=== PATIENT | female | born 1980 | race Caucasian/White ===

== ENCOUNTER 2019-11-05 09:10 | Emergency (ER) | payer MEDICARE, MEDICAID ==
[~2019-11-05] VITALS: Ht 157.5 cm; Wt 81.8 kg
[~2019-11-05 09:10] MED LIST: DIPH-423 PO
--- NOTE | 2019-11-05 09:43 | NUR ---
PT. ATTEMPTED TO URINATE AND GIVE A SAMPLE, CUP WAS EMPTY. BLOOD DRAWN, PT. IN GREENS, VALUABLES ITAMIZED BY JONAS THE TECH. PT. WALKED OVER TO ROOM 22
[2019-11-05 09:54] LABS: BASOPHILS # (AUTO) 0.1 X10'3 (0-0.2); BASOPHILS % (AUTO) 0.8 % (0-1); EOSINOPHILS # (AUTO) 0.1 X10'3 (0-0.9); HEMATOCRIT 33.8 % (35.0-45.0); HEMOGLOBIN 10.7 g/dl (12.0-16.0); LYMPHOCYTES # (AUTO) 1.5 X10'3 (1.1-4.8); LYMPHOCYTES % (AUTO) 19.4 % (21-51); MEAN CORPUSCULAR HEMOGLOBIN 24.9 PG (27.0-31.0); MEAN CORPUSCULAR HGB CONC 31.6 g/dL (33.0-36.5); MEAN CORPUSCULAR VOLUME 78.7 FL (78-98); MEAN PLATELET VOLUME 7.3 FL (7.4-10.4); MONOCYTES # (AUTO) 0.7 X10'3 (0-0.9); MONOCYTES % (AUTO) 9.5 % (2-12); NEUTROPHILS # (AUTO) 5.2 X10'3 (1.8-7.7); NEUTROPHILS % (AUTO) 69.3 % (42-75); PLATELET COUNT 339 X10'3 (140-440); RED CELL DISTRIBUTION WIDTH 17.4 % (11.5-14.5); WHITE BLOOD COUNT 7.6 X10'3 (4.5-11.0)
--- NOTE | 2019-11-05 10:02 | NUR ---
Up in bed talking to self
--- NOTE | 2019-11-05 10:06 | NUR ---
Let patient know we need a urine sample from her. She told me she tried but wasn't able to get it in the cup. I told her to let us know when she has to go so we could get her a urine hat to make collecting her urine easier.
[2019-11-05 10:13] LABS: ALANINE AMINOTRANSFERASE 120 U/L (12-78); ALBUMIN 4.1 G/DL (3.4-5.0); ALBUMIN/GLOBULIN RATIO 1.1 (1.1-1.5); ALKALINE PHOSPHATASE 185 IU/L (46-116); ANION GAP 12 (8-16); ASPARTATE AMINO TRANSFERASE 128 U/L (10-37); BILIRUBIN,TOTAL 0.4 MG/DL (0.1-1.0); BLOOD UREA NITROGEN 20 MG/DL (7-18); CALCIUM 9.4 MG/DL (8.5-10.1); CHLORIDE 104 MMOL/L (99-107); CREATININE 0.77 MG/DL (0.40-0.90); GLUCOSE 104 MG/DL (70-104); POTASSIUM 3.5 MMOL/L (3.5-5.1); SODIUM 139 MMOL/L (135-145); TOTAL CARBON DIOXIDE 23.3 MMOL/L (24-32); TOTAL PROTEIN 7.9 G/DL (6.4-8.2); eGFR 83 ML/MIN
[2019-11-05 10:22] LABS: ETHANOL < 0.010 GM/DL (0.0-0.010)
--- NOTE | 2019-11-05 10:24 | NUR ---
In the restroom, getting a urine sample, tech in with patient
--- NOTE | 2019-11-05 11:00 | NUR ---
Patient having flights pf ideas is refusing to let us cath her.
--- NOTE | 2019-11-05 11:02 | NUR ---
García notified charge rn of patients refusal to let us cath her.
--- NOTE | 2019-11-05 11:03 | NUR ---
Patient pulled fire alarm. television tube inspector notified.
--- NOTE | 2019-11-05 11:10 | NUR ---
Attemping to get urine sample.
[2019-11-05 11:40] LABS: CLARITY,URINE SLIGHTLY CLOUDY (Clear); COLOR,URINE YELLOW (Yellow); GLUCOSE, URINE NEGATIVE (Neg); KETONES,URINE TRACE mg/dl (Neg); LEUKOCYTE ESTERASE ,URINE NEGATIVE (Neg); NITRITES, URINE NEGATIVE (Neg); OCCULT BLOOD,URINE NEGATIVE (Neg); PH,URINE 5.5 (4.8-8.0); PROTEIN,URINE TRACE mg/dl (Neg)
[2019-11-05 11:41] LABS: UA COLLECTION TYPE STRAIGHT CATH
--- NOTE | 2019-11-05 11:41 | NUR ---
primary RN was sent on a break. Pt sitting up on the side of the bed talking to self.
[2019-11-05 11:44] LABS: URINE AMPHETAMINE SCREEN POSITIVE (Neg); URINE BARBITUATE SCREEN NEGATIVE (Neg); URINE BENZODIAZEPINES SCREEN NEGATIVE (Neg); URINE CANNABINOID SCREEN NEGATIVE (Neg); URINE COCAINE SCREEN NEGATIVE (Neg); URINE METHADONE SCREEN NEGATIVE (Neg); URINE OPIATE SCREEN NEGATIVE (Neg); URINE PHENCYCLIDINE SCREEN NEGATIVE (Neg)
[2019-11-05 11:46] LABS: SQUAMOUS EPITHELIAL CELL,UR MANY /LPF (FEW)
[2019-11-05 11:47] LABS: BACTERIA,URINE 1+ /HPF (Neg); MUCUS STRANDS MODERATE /LPF (Neg); RBC,URINE 0-2 /HPF (0-2); URINE HCG NEGATIVE (NEG); WBC,URINE 0-4 /HPF (0-4)
[2019-11-05] MEDS ORDERED: ziprasidone 20mg capsule PO STA (11:59)
--- NOTE | 2019-11-05 12:01 | NUR ---
PACKET FAXED TO [facility]
[2019-11-05] MEDS ORDERED: FLUO-12 PO (12:07)
--- NOTE | 2019-11-05 12:11 | NUR ---
back in bed
[2019-11-05] MEDS ORDERED: ZOLP10TA PO (12:13)
--- NOTE | 2019-11-05 12:39 | NUR ---
pt hypomanic AEB extreme pressured and loud speech, tangential thoughts, restlessness and inability to focus/redirect.
--- NOTE | 2019-11-05 12:54 | NUR ---
Discussed pt's status with KIMBERLEE Logan; new order for Haldol 5mg, Ativan 2mg and Benadryl 50mg IM recieved.
[2019-11-05] MEDS ORDERED: diphenhydrAMINE 50 mg/ml inj IM ONE ×2 (12:55→15:30)
[2019-11-05] MEDS ORDERED: LORazepam 2 mg/ml vial IM ONE ×2 (12:55→15:30)
[2019-11-05] MEDS ORDERED: haloperidol lactate 5mg/ml inj IM ONE ×2 (12:55→15:30)
--- NOTE | 2019-11-05 13:09 | NUR ---
Patient in bed received a B-52 from break RN.
--- NOTE | 2019-11-05 14:00 | NUR ---
Laying in bed trying to sleep
--- NOTE | 2019-11-05 14:43 | NUR ---
using the restroom
--- NOTE | 2019-11-05 14:45 | NUR ---
back in bed
--- NOTE | 2019-11-05 15:00 | NUR ---
Resting in bed
--- NOTE | 2019-11-05 15:48 | NUR ---
moved to bed 20
--- NOTE | 2019-11-05 16:22 | NUR ---
resting in bed
[2019-11-05] MEDS ORDERED: zolpidem 5mg tablet PO PRN (21:00)
--- NOTE | 2019-11-05 22:24 | NUR ---
Pulled Ambien 10mg PO to give to the patient and she got up to ambulate to the restroom. Medication given to Torin Bailey RN to administer to the patient upon return from the restroom.
--- NOTE | 2019-11-06 01:02 | NUR ---
PT ASLEEP, LYING ON HER LEFT SIDE WITH BLANKETS COVERING TO HER SHOUDERS. RR 14 AND UNLABORED. SITTER AND RN WITHIN VIEW OF PT AAT.
[2019-11-06] MEDS ORDERED: FLUoxetine 20mg capsule PO SCH (08:00)
[2019-11-06] MEDS ORDERED: acetaminophen 325mg tablet PO ONE (12:15)
--- NOTE | 2019-11-06 15:13 | NUR ---
Dr Lancaster called gave verbal order for chest xray 2 view, RN aware to call Dr Lancaster with results
--- NOTE | 2019-11-06 18:52 | NUR ---
This patient is awake and well oriented. Patient at times exhibits disorganized thought. Patient eats a full dinner. Patient states she continously hears voices that tell her to do things. Patient ambulates to bathroom without problems. Patient brushes her own teeth. Patient then returns to bed and sits at bedside. Plan is to transfer to [facility] this evening.
--- NOTE | 2019-11-06 20:57 | NUR ---
Patient is sleeping now on her right side. In view from the nursing station.
[2019-11-06 21:04] VITALS: BP 143/97
== END 2019-11-06 21:08 ==
LOC: ER 09:10
DX: R44.0 Auditory hallucinations (principal); F31.9 Bipolar disorder, unspecified; F15.10 Other stimulant abuse, uncomplicated; Z91.5 Personal history of self-harm; F41.9 Anxiety disorder, unspecified; Z79.899 Other long term (current) drug therapy
CPT/HCPCS: 36415; 71045; 71046; 80053; 80305; 80320; 81001; 81025; 84443; 85025; 96372; 99285; J1200; J1630; J2060

== ENCOUNTER 2019-11-06 19:27 | Inpatient (IN) | payer MEDICARE, MEDICAID ==
[~2019-11-06] VITALS: Ht 165.1 cm; Wt 100.7 kg
[~2019-11-06 19:27] MED LIST changes: -DIPH-423 PO; +FLUO-12 PO; +ZOLP10TA PO
[2019-11-06] MEDS ORDERED: acetaminophen 325mg tablet PO PRN (22:10)
[2019-11-06] MEDS ORDERED: traZODone 50mg tablet PO PRN (22:10)
[2019-11-06] MEDS ORDERED: loperamide 2mg capsule PO PRN (22:10)
[2019-11-06] MEDS ORDERED: magnesium hydroxide 30ml (MOM) UD suspension PO PRN (22:10)
[2019-11-06 22:20] VITALS: BP 131/78
[2019-11-06] MEDS: zolpidem 5mg tablet PO PRN (23:29)
--- NOTE | 2019-11-07 00:49 | NUR ---
ADMIT NOTE: Patient admitted to [facility] for [facility] on a 5150 for DTS at 2210. Patient was brought to the ED by police. [place] the [place] throwing rocks at baby headstones. Patient was making comments such as "I wish I was and to the police "you should kill me." Police had been called several times the night before on this patient and escorted her home. Patient stated she had thoughts of harming herself and others and is hearing auditory voices. Patient reports having a history of schizophrenia, bipolar and depression. Patient takes Prozac. Patient admits to occasional ETOH and notes she currently smokes crystal meth. Patient currently presents as delusional and disorganized. It is difficult to follow patients true intent towards SI. Patient endorses feeling suicidal "Yes, I wish to be ," "I wish to play laser tag." Patient's response to do you have a plan, "yes my plan is when I get out of here I am going to take care of myself." Patient states 3 days ago she "took all of her mother's pills" and in the next breath looks around the room thinking she is being watched. Patient also states she had a blood transfusion downstairs (in [place]) and "they took it all." Patient laughs inappropriately. Patient endorses AH from her cousin who 20 years ago "he tells me to do things and from her cat that 15 years ago called cat-dog. In regards to the question about restraints pt responds with "I want [facility] to know if I am restrained." Patient states her PCP is Dr. Figueroa at [facility], her last Invega injection was "last month." Pt randomly will begin to slur her speech "my tongue is swollen" then will return to clear, pressured speech. Upon skin check redness was noted under pannus, pictures were obtained and placed in file. Patient was administered Ambien 10 mg for sleep.
[2019-11-07 07:05] VITALS: BP 133/86
[2019-11-07] MEDS: FLUoxetine 20mg capsule PO SCH (07:57)
[2019-11-07] MEDS: acetaminophen 325mg tablet PO PRN (07:59)
[2019-11-07 13:54] LABS: ALANINE AMINOTRANSFERASE 62 U/L (12-78); ALBUMIN 3.3 G/DL (3.4-5.0); ALBUMIN/GLOBULIN RATIO 0.9 (1.1-1.5); ALKALINE PHOSPHATASE 140 IU/L (46-116); ANION GAP 8 (8-16); ASPARTATE AMINO TRANSFERASE 34 U/L (10-37); BILIRUBIN,TOTAL 0.1 MG/DL (0.1-1.0); BLOOD UREA NITROGEN 11 MG/DL (7-18); BUN/CREATININE RATIO 15.1 (6.6-38.0); CALCIUM 8.7 MG/DL (8.5-10.1); CHLORIDE 105 MMOL/L (99-107); CREATININE 0.73 MG/DL (0.40-0.90); GLUCOSE 142 MG/DL (70-104); SODIUM 138 MMOL/L (135-145); TOTAL CARBON DIOXIDE 25.2 MMOL/L (24-32); eGFR 89 ML/MIN
--- NOTE | 2019-11-07 17:04 | NUR ---
Nursing Progress Note: Legal hold: 5150 Client on involuntary status for GD/DTS/DTO. Report received from Lorena CONTRERAS with use of SBAR. Why are they here:. Patient admitted to [facility] for [facility]al Health on a 5150 for DTS at 2210. Patient was brought to the ED by police. Patient was found in the cemetery throwing rocks at baby headstones. Patient was making comments such as "I wish I was and to the police "you should kill me." Police had been called several times the night before on this patient and escorted her home. Patient stated she had thoughts of harming herself and others and is hearing auditory voices. Patient reports having a history of schizophrenia, bipolar and depression. Patient takes Prozac. Patient admits to occasional ETOH and notes she currently smokes crystal meth. Assessment What has happened this shift: Pt up and visible on the unit. Interacting with select peers. Pt affect is blunted. Pt mood is stable, but when questioned, her answers vary throughout the day. She has been anxious frequently, with its basis in delusional thought process, can you take me downstairs so I can see my body in the morgue? Pt also continues to endorse both suicidal thoughts and homicidal thoughts r/t command auditory hallucinations telling her to kill herself and other random people. Pt behavior has been controlled and not a management issue this shift. S/I, H/I: yes A/VH: command hallucinations Sleep: no napping today ADL's: independent showered Group attendance: n/a Were meds taken: yes Any med S/E: no Mental Status Exam Appearance: dressed in hospital scrubs, appears clean and hair is combed Eye contact: fair Behavior: appropriate, interacting with select peers Speech: normal, quiet in volume Mood: anxious Affect: blunted Thought process: disorganized r/t delusions Thought Content: delusional, multiple Cognition: intact Insight: fair Judgment: fair Interventions PRN's used: n/a Therapeutic interventions: 1:1 assessment, active listening, therapeutic conversation, medication administration/education/monitoring, behavior monitoring and intervention; reality orientation, re-assurance, positive reinforcement, Q 15 min safety checks. Restraints/seclusion/emergency medication: n/a Justification of Continued Inpatient Treatment: Pt continues to experience command auditory hallucinations telling her to kill herself and other random people.
[2019-11-07] MEDS: nystatin 15 GM powder TP SCH ×2 (17:14→20:21)
[2019-11-07 19:30] VITALS: BP 150/90
[2019-11-07] MEDS ORDERED: PALIPERIDONE 3 MG TAB.ER.24 PO SCH (21:00)
[2019-11-07] MEDS: zolpidem 5mg tablet PO PRN (22:02)
[2019-11-08] MEDS: acetaminophen 325mg tablet PO PRN (04:43)
--- NOTE | 2019-11-08 04:53 | NUR ---
Nursing Progress Note: Legal hold: 5150 Client on involuntary status for DTS/DTO. Report received from SAHARA Garcia with use of SBAR. Why are they here:. Patient admitted to [facility] for [facility] Health on a 5150 for DTS at 2210. Patient was brought to the ED by police. Patient was found in the cemetery throwing rocks at baby headstones. Patient was making comments such as "I wish I was and to the police "you should kill me." Police had been called several times the night before on this patient and escorted her home. Patient stated she had thoughts of harming herself and others and is hearing auditory voices. Patient reports having a history of schizophrenia, bipolar and depression. Patient takes Prozac. Patient admits to occasional ETOH and notes she currently smokes crystal meth. Assessment What has happened this shift: Patient socializing with peers on the unit at the beginning of shift. Pleasant and cooperative with all care; compliant with medication. Patient received PRN Ambien per request for sleep and Tylenol for generalized pain with positive effect. Patient has a rash under pannus; area CDI and Nystatin reapplied. Patient endorses command AH, VH and SI. She reports anxiousness d/t hallucinations "but I have it under control." Patient continues to make delusional statements, such as, "Do I ask her or Satan for a pill?" S/I, H/I: Endorses SI A/VH: +A/VH; Command hallucinations Sleep: Refer to sleep assessment ADL's: Independent Group attendance: n/a Were meds taken: Yes Any med S/E: None observed or reported Mental Status Exam Appearance: Dressed in hospital scrubs, appears neat and clean. Eye contact: Fair Behavior: Socializing, pleasant and cooperative Speech: Clear, steady rate/rhythm Mood: Anxious Affect: Constricted Thought process: Disorganized Thought Content: Delusional content Cognition: A/O Insight: Fair Judgment: Poor Interventions PRN's used: Ambien and Tylenol Therapeutic interventions: 1:1 assessment, active listening, therapeutic conversation, medication administration/education/monitoring, behavior monitoring and intervention; reality orientation, re-assurance, positive reinforcement, Q 15 min safety checks. Restraints/seclusion/emergency medication: n/a Justification of Continued Inpatient Treatment: Pt continues to experience command auditory hallucinations telling her to kill herself and other random people.
[2019-11-08 07:21] VITALS: BP 120/74
[2019-11-08] MEDS: FLUoxetine 20mg capsule PO SCH (08:00)
[2019-11-08] MEDS: pantoprazole 40mg Tablet.DR PO SCH (08:00)
[2019-11-08] MEDS: nystatin 15 GM powder TP SCH ×3 (08:05→20:09)
--- NOTE | 2019-11-08 13:58 | NUR ---
Nursing Progress Note: Legal hold: 5150 Client on involuntary status for DTS/DTO. Report received from Darrion OROURKE with use of SBAR. Why are they here:. Patient admitted to [facility] for [facility] Health on a 5150 for DTS at 2210. Patient was brought to the ED by police. Patient was found in the cemetery throwing rocks at baby headstones. Patient was making comments such as "I wish I was and to the police "you should kill me." Police had been called several times the night before on this patient and escorted her home. Patient stated she had thoughts of harming herself and others and is hearing auditory voices. Patient reports having a history of schizophrenia, bipolar and depression. Patient takes Prozac. Patient admits to occasional ETOH and notes she currently smokes crystal meth. Assessment What has happened this shift: Pt was up for breakfast. She rated her depression at a 10/10. Pt continues to endorse SI but with no specific plan, "anyway I can." Pt contracts for safety here. Pt is also endorsing vague HI..."just one person, Eminem, not the candy." Pt states she is having AH, that the voices say, "just do it, like [employer]." When asked about VH, pt stated that she doesn't know if this nurse is real or not. Pt also stated she sees shadows. Pt can become easily frustrated at times, became angry over not finding a PCT to help her change the channel immediately though was easily verbally de-escalated and redirected. Pt watches TV, walks in the hallways, and socializes with peers. S/I, H/I: +SI/HI, no plan A/VH: +AH/+VH Sleep: Pt slept 4.5 hours last night per noc shift report, did not nap during the day. ADL's: Independent Group attendance: n/a Were meds taken: Yes Any med S/E: None noted or reported. Mental Status Exam Appearance: Somewhat heavy-set woman with long blond, wavy hair and a lazy left eye, dressed in clean, green, hospital scrubs. Eye contact: Fair Behavior: Easily frustrated, cooperative, paces in halls, watches TV, socializes with peers. Speech: Clear, audible Mood: Depressed Affect: Anxious Thought process: Disorganized Thought Content: wants to hurt Saurabh Cognition: A/O X 3 Insight: Fair Judgment: Poor Interventions PRN's used: N/A Therapeutic interventions: 1:1 assessment, establishment of rapport, active listening, therapeutic conversation, medication administration/education/monitoring, behavior monitoring and intervention; reality orientation, redirection, verbal de-escalation, positive reinforcement, Q 15 min safety checks. Restraints/seclusion/emergency medication: n/a Justification of Continued Inpatient Treatment: Pt continues to endorse SI/HI and have AH/VH. Pt needs stabilization with medication adjustment and monitoring in a safe, therapeutic environment. Addendum: 11/08/19 at 1459 by Stephanie Cosby RN (Lee) Pt complained of some agitation because the voices were getting bad, "rambling on and on to hurt myself and other people." Haldol 5, Ativan 2, Benadryl 50 mg PO given at 1433. Addendum: 11/08/19 at 1632 by Stephanie Cosby RN (Lee) Pt's paliperidone was increased to 6 mg HS.
[2019-11-08] MEDS: haloperidol 5mg tablet PO PRN (14:32)
[2019-11-08] MEDS: LORazepam 1 MG tablet PO PRN (14:33)
[2019-11-08] MEDS: diphenhydrAMINE 25mg capsule PO PRN (14:33)
--- NOTE | 2019-11-08 17:40 | NUR ---
Pt making delusional statements about being taken downstairs to play the hospital piano.
[2019-11-08 19:18] VITALS: BP 95/54
[2019-11-08 19:24] VITALS: BP 112/76
--- NOTE | 2019-11-08 19:26 | NUR ---
OMIT 1917 VS- Wrong pt
[2019-11-08] MEDS: PALIPERIDONE 3 MG TAB.ER.24 PO SCH (20:10)
--- NOTE | 2019-11-09 03:06 | NUR ---
Nursing Progress Note: Legal hold: 5150 EXPIRES 11/08 @ 2020. Client on involuntary status for DTS/DTO. Report received from SAHARA Garcia with use of SBAR. Why are they here:. Patient admitted to [facility] for [facility] Health on a 5150 for DTS at 2210. Patient was brought to the ED by police. Patient was found in the cemetery throwing rocks at baby headstones. Patient was making comments such as "I wish I was and to the police "you should kill me." Police had been called several times the night before on this patient and escorted her home. Patient stated she had thoughts of harming herself and others and is hearing auditory voices. Patient reports having a history of schizophrenia, bipolar and depression. Patient takes Prozac. Patient admits to occasional ETOH and notes she currently smokes crystal meth. Assessment What has happened this shift: Patient laying in bed asleep at the beginning of shift. Patient is short with responses this shift; endorses SI and HI but states, "I don't want to talk about it." She continues to endorse command A/VH. Compliant with medication; Paliperidone increased to 6mg this shift with no ASE observed or reported. Patient continues to c/o excessive body aches interventions, rest and repositioning, effective at this time. Patient reported several times to this caption writer she was ready for a shower and immediately follow "actually not yet." She was overheard explaining to her roommate "when I get discharged tomorrow I have to get walked all the way down to the piano." She ate her HS snack in her bedroom and shortly after went back to sleep. S/I, H/I: Endorses SI and HI; no plan or elaboration. A/VH: +A/VH; Command hallucinations Sleep: Refer to sleep assessment ADL's: Independent Group attendance: n/a Were meds taken: Yes Any med S/E: None observed or reported Mental Status Exam Appearance: Disheveled, wearing green unit scrubs and non skid socks. Eye contact: Fair Behavior: Isolative, sleeping majority of this shift Speech: Clear, minimal Mood: Labile Affect: Constricted Thought process: Disorganized Thought Content: Discharge Cognition: A/O x3 Insight: Fair Judgment: Poor Interventions PRN's used: None Therapeutic interventions: 1:1 assessment, active listening, therapeutic conversation, medication administration/education/monitoring, behavior monitoring and intervention; reality orientation, re-assurance, positive reinforcement, Q 15 min safety checks. Restraints/seclusion/emergency medication: n/a Justification of Continued Inpatient Treatment: Pt continues to experience command auditory hallucinations telling her to kill herself and other random people.
[2019-11-09] MEDS: LORazepam 1 MG tablet PO PRN ×2 (03:39→10:07)
[2019-11-09 08:00] VITALS: BP 103/66
[2019-11-09] MEDS: pantoprazole 40mg Tablet.DR PO SCH (08:00)
[2019-11-09] MEDS: FLUoxetine 20mg capsule PO SCH (08:00)
[2019-11-09] MEDS: nystatin 15 GM powder TP SCH ×3 (08:01→20:08)
[2019-11-09] MEDS: acetaminophen 325mg tablet PO PRN (08:01)
[2019-11-09] MEDS: haloperidol 5mg tablet PO PRN (10:06)
[2019-11-09] MEDS: diphenhydrAMINE 25mg capsule PO PRN (10:06)
--- NOTE | 2019-11-09 10:53 | NUR ---
SS had t/c with Bonita Alvarez, left requesting current medication regiment for pt. Daiana Farooq, [employer]BRAD[employer] MACHINE [employer]ER Addendum: 11/12/19 at 1054 by Daiana Farooq Amended: Links added.
--- NOTE | 2019-11-09 14:47 | NUR ---
Nursing Progress Note: Legal hold: 5150 EXPIRES 11/08 @ 2020. Client on involuntary status for DTS/DTO. Report received from Gwen CONTRERAS with use of SBAR. Why are they here:. Patient admitted to [facility] for [facility] Health on a 5150 for DTS at 2210. Patient was brought to the ED by police. Patient was found in the cemetery throwing rocks at baby headstones. Patient was making comments such as "I wish I was and to the police "you should kill me." Police had been called several times the night before on this patient and escorted her home. Patient stated she had thoughts of harming herself and others and is hearing auditory voices. Patient reports having a history of schizophrenia, bipolar and depression. Patient takes Prozac. Patient admits to occasional ETOH and notes she currently smokes crystal meth. Assessment What has happened this shift: Pt reported that the voices were "better" this morning. Pt denied depression/SI. Pt states that she has not had any visual hallucinations today, "none so far...maybe I'll get to go home today." Pt is constricted. Pt c/o 10 bilateral knee pain and was medicated with PRN Tylenol 650 mg @ 0801 with good effect. After breakfast, pt approached the charting room to ask, "Can I ask you a question? Am I doing better? I'm taking the medicine here," ( pt gestured to her abdominal fold where Nystop was applied this morning.) Positive reinforcement provided that pt has improved since yesterday, encouraged pt to discuss this with the doctor. Pt responded, "I already did" in a rude, sarcastic, hostile tone of voice. Pt has been door checking. At 1000, heard an exit door alarm go off. She was the only patient in the community room at the time standing near the door which was alarming. Pt directed away from the exit door. Pt was not allowed to go outside on the patio with the other patients today. Pt made a phone call and became agitated yelling loudly in an angry, disorganized fashion to the person she was on the phone with. Pt remained hostile and irritable after the phone call. Medicated pt with prn PO Haldol 5 mg, Ativan 2 mg, and Benadryl 50 mg at 1007, pt was cooperative with taking the meds. Asked pt if she had been speaking on the phone to her mother. Pt replied, "Yes, she upset me." Pt requested a phone again after lunch and was told there were none currently available as they all needed charging. Pt became angry, made some hostile verbalizations to branch sales and service representative and returned to her room. Dr Heredia plans to place pt on a 5250 hold today. S/I, H/I: Pt denies. A/VH: Pt denies VH, stated that the voices were better this morning. Sleep: Pt slept 8.5 hours last night per noc shift report. ADL's: Independent Group attendance: n/a Were meds taken: Yes Any med S/E: None noted or reported. Mental Status Exam Appearance: Disheveled woman with long wavy highlighted hair pulled back in a ponytail, wearing green unit scrubs and non skid socks. Eye contact: Fair Behavior: Constricted, hostile, disorganized, agitated. Speech: Clear,audible, minimal Mood: Labile, angry, agitated Affect: Constricted/agitated Thought process: Disorganized Thought Content: Wants to go home. Cognition: A/O x3 Insight: Impaired Judgment: Impaired Interventions PRN's used: PO Haldol 5 mg, Ativan 2 mg, Benadryl 50 mg Therapeutic interventions: 1:1 assessment, active listening, therapeutic conversation, medication administration/education/monitoring, behavior monitoring and intervention; reality orientation, redirection, verbal de-escalation, offered PRNs, positive reinforcement, Q 15 min safety checks. Restraints/seclusion/emergency medication: n/a Justification of Continued Inpatient Treatment: Pt is labile. She is disorganized and agitated, she has impaired insight and judgement. Pt continues to be a DTS/DTO. She is being placed on a 5250 hold today. She needs medication adjustment and monitoring in a safe and therapeutic environment until stable to prevent harm to herself or others. Addendum: 11/09/19 at 1611 by Stephanie Cosby RN ([place]) Pt reported throwing up in her sink after lunch. Pt had eaten nearly all of her lunch. PCT reported moderate sized emesis in the sink. Housekeeping was called to clean the sink. No further episodes of nausea or vomiting this shift.
[2019-11-09 20:00] VITALS: BP 130/63
[2019-11-09] MEDS: PALIPERIDONE 3 MG TAB.ER.24 PO SCH (20:08)
--- NOTE | 2019-11-09 21:54 | NUR ---
Nursing Progress Note: Legal hold: 5250 as of 11/08 Client on involuntary status for DTS/DTO. Report received from SAHARA Garcia with use of SBAR. Why are they here:. Patient admitted to [facility] for Behavioral Health on a 5150 for DTS at 2210. Patient was brought to the ED by police. Patient was found in the cemetery throwing rocks at baby headstones. Patient was making comments such as "I wish I was and to the police "you should kill me." Police had been called several times the night before on this patient and escorted her home. Patient stated she had thoughts of harming herself and others and is hearing auditory voices. Patient reports having a history of schizophrenia, bipolar and depression. Patient takes Prozac. Patient admits to occasional ETOH and notes she currently smokes crystal meth. Assessment What has happened this shift: The patient was found in her room for 1:1. The patient agreed to talk, but is guarded and doesn't want to talk. When asked what happened to bring her here, she responded, "It's all about a cat." asked to explain, "I had a little disagreement with my mom. I'm not saying any more, except I'm going home tomorrow." She got up and walked out to see if snacks were coming soon. "I don't want to talk anymore." The patient still endorses SI/HI, along with CAH, that she won't describe. She was compliant with medications, ate her snacks, then went to bed. S/I, H/I: Yes to SI/HI, but will not say if there is a plan. A/VH: + CAH. Sleep: Refer to sleep assessment ADL's: Independent Group attendance: n/a Were meds taken: Yes Any med S/E: None observed or reported Mental Status Exam Appearance: Disheveled, wearing green unit scrubs and non skid socks. Eye contact: Direct Behavior: Isolative, sleeping majority of this shift Speech: Clear, minimal Mood: Labile Affect: Blunted Thought process: Disorganized Thought Content: Discharge Cognition: A/O x3 Insight: Fair Judgment: Poor Interventions PRN's used: Ambien Therapeutic interventions: 1:1 assessment, active listening, therapeutic conversation, medication administration/education/monitoring, behavior monitoring and intervention; reality orientation, re-assurance, positive reinforcement, Q 15 min safety checks. Restraints/seclusion/emergency medication: n/a Justification of Continued Inpatient Treatment: Pt continues to experience command auditory hallucinations telling her to kill herself and other random people.
[2019-11-10 07:34] VITALS: BP 122/83
[2019-11-10] MEDS: nystatin 15 GM powder TP SCH ×3 (07:39→21:00)
[2019-11-10] MEDS: FLUoxetine 20mg capsule PO SCH (07:39)
[2019-11-10] MEDS: LORazepam 1 MG tablet PO PRN (07:39)
[2019-11-10] MEDS: pantoprazole 40mg Tablet.DR PO SCH (07:39)
--- NOTE | 2019-11-10 14:37 | NUR ---
Nursing Progress Note: Legal hold: 5250 Client on involuntary status for DTS/DTO. Report received from Kathy OROURKE with use of SBAR. Why are they here:. Patient admitted to [place] for [facility] on a 5150 for DTS at 2210. Patient was brought to the ED by police. [place] the [place] at baby headstones. Patient was making comments such as "I wish I was and to the police "you should kill me." Police had been called several times the night before on this patient and escorted her home. Patient stated she had thoughts of harming herself and others and is hearing auditory voices. Patient reports having a history of schizophrenia, bipolar and depression. Patient takes Prozac. Patient admits to occasional ETOH and notes she currently smokes crystal meth. Assessment What has happened this shift: Pt was up before breakfast asking for the phone to call her mom, the phone was not charged and pt was told she would have to wait, pt became irritable that she could not use the phone right away. Pt asked if she were going to get her medication soon. Administered prn Ativan 1 mg at 0739 along with pt's routine Prozac and Protonix with good effect. When asked about depression this morning, pt replied, "always." Pt rated her depression at a 10/10, "I miss my mom." When asked about SI, pt replied, "not at the moment." Pt reported that the voices are "not bad...they're not telling me to hurt myself or anything." Asked pt about HI, pt responded, "Sometimes I want to hurt her." Clarified that she was talking about sometimes wanting to hurt her mother. Pt denied VH. Pt stated that she wants to go home. S/I, H/I: Pt denied SI, pt described vague, intermittent HI with sometimes feeling like hurting her mother. A/VH: Pt denied VH, reported that AH not bad, not telling her to hurt herself or anything. Sleep: Pt slept 7 hours last night per noc shift report. ADL's: Independent Group attendance: n/a Were meds taken: Yes Any med S/E: None noted or reported. Mental Status Exam Appearance: Disheveled woman with long wavy highlighted hair pulled back in a ponytail, wearing green unit scrubs and non skid socks. Eye contact: Fair Behavior: Cooperative, constricted, easily frustrated, mostly isolative to self. Speech: Clear,audible, minimal Mood: Depressed Affect: Blunted, constricted Thought process: More linear today Thought Content: Misses her mom, wants to go home. Cognition: A/O x3 Insight: Fair Judgment: Poor Interventions PRN's used: Ativan 1 mg Therapeutic interventions: 1:1 assessment, encouragement to express thoughts and feelings, active listening, therapeutic conversation, medication administration/education/monitoring, behavior monitoring and intervention as needed, positive reinforcement, Q 15 min safety checks. Restraints/seclusion/emergency medication: n/a Justification of Continued Inpatient Treatment: Pt needs medication adjustment and monitoring in a safe and therapeutic environment until stable to prevent harm to herself or others.
[2019-11-10 20:00] VITALS: BP 148/75
[2019-11-10] MEDS: zolpidem 5mg tablet PO PRN (20:24)
[2019-11-10] MEDS: PALIPERIDONE 3 MG TAB.ER.24 PO SCH (20:25)
--- NOTE | 2019-11-10 23:45 | NUR ---
Nursing Progress Note: Legal hold: 5250 as of 11/08 Client on involuntary status for DTS/DTO. Report received from SAHARA Parra with use of SBAR. Why are they here:. Patient admitted to [place] for [facility] on a 5150 for DTS at 2210. Patient was brought to the ED by police. Patient was [place] in the cemetery throwing rocks at baby headstones. Patient was making comments such as "I wish I was and to the police "you should kill me." Police had been called several times the night before on this patient and escorted her home. Patient stated she had thoughts of harming herself and others and is hearing auditory voices. Patient reports having a history of schizophrenia, bipolar and depression. Patient takes Prozac. Patient admits to occasional ETOH and notes she currently smokes crystal meth. Assessment What has happened this shift: The patient was in group room watching tv at change of shift. When asked about physical pain, pt responded "my whole body hurts sometimes, but I stop it." Pt is confused as to why she is here. She believes that she was misunderstood and "was only mad because someone used my card." When asked about voices she stated that "they tell me to do bad things," but denies voices today. Pt accepted all hs meds without issue and went to bed. S/I, H/I: Yes, "but I control it." A/VH: denies Sleep: Refer to sleep assessment ADL's: Independent Group attendance: n/a Were meds taken: Yes Any med S/E: None observed or reported Mental Status Exam Appearance: Disheveled, wearing green unit scrubs and non skid socks. Eye contact: Direct Behavior: Isolative, sleeping majority of this shift Speech: Clear, minimal Mood: calm Affect: Blunted Thought process: Disorganized Thought Content: Discharge Cognition: A/O x3 Insight: Fair Judgment: Poor Interventions PRN's used: Ambien Therapeutic interventions: 1:1 assessment, active listening, therapeutic conversation, medication administration/education/monitoring, behavior monitoring and intervention; reality orientation, re-assurance, positive reinforcement, Q 15 min safety checks. Restraints/seclusion/emergency medication: n/a Justification of Continued Inpatient Treatment: Pt continues to experience command auditory hallucinations telling her to kill herself and other random people.
[2019-11-11] MEDS: acetaminophen 325mg tablet PO PRN ×2 (01:05→05:35)
[2019-11-11] MEDS: FLUoxetine 20mg capsule PO SCH (07:52)
[2019-11-11] MEDS: nystatin 15 GM powder TP SCH ×3 (07:53→20:41)
[2019-11-11] MEDS: pantoprazole 40mg Tablet.DR PO SCH (07:53)
[2019-11-11 08:00] VITALS: BP 120/73
--- NOTE | 2019-11-11 10:32 | NUR ---
Initial: Pt admit with psychosis. Currently on a regular diet with slightly fluctuating PO intake however averaging 75-100% PO intake. LBM 11/09. No edema or wounds. No nutrition diagnosis at this time. Will continue to follow. Recommendations: 1) Continue regular diet 2) Bowel care PRN 3) Weekly weights Addendum: 11/11/19 at [address] Amended: Links added.
--- NOTE | 2019-11-11 16:33 | NUR ---
Nursing Progress Note: Legal hold: 5250 Client on involuntary status for DTS/DTO. Report received from RN with use of SBAR. Why are they here:. Patient admitted to [place] for [facility] on a 5150 for DTS at 2210. Patient was brought to the ED by police. Patient was found in the cemetery throwing rocks at baby headstones. Patient was making comments such as "I wish I was and to the police "you should kill me." Police had been called several times the night before on this patient and escorted her home. Patient stated she had thoughts of harming herself and others and is hearing auditory voices. Patient reports having a history of schizophrenia, bipolar and depression. Patient takes Prozac. Patient admits to occasional ETOH and notes she currently smokes crystal meth. Assessment What has happened this shift: Received Pt in bed sleeping w/o distress at beginning of shift. Pt awoke for vitals and ate breakfast and all meals in her room. Pt pleasant and cooperative and tolerated assessments well. Pt in euthymic mood, smiling socializing with peers. Spent time in Recreation room listening to music and singing. Pt endorses AH but stated they are not as bad. Denies VH, SI. Has vague thoughts of wanting to hurt mother, who she has a volatile relationship with. Pt spent time watching TV in community room and talking with other Pts. She feels she is ready to go home. S/I, H/I: Vague HI toward mother A/VH: Pt endorses AHs Sleep: None on this shift ADL's: Independent Group attendance: n/a Were meds taken: Yes Any med S/E: None noted or reported. Mental Status Exam Appearance: Casual Eye contact: Fair Behavior: Cooperative, social Speech: Clear Mood: Euthymic, social Affect: Congruent with mood Thought process: Linear Thought Content: Talking about music artists. Cognition: A/O x3 Insight: Fair Judgment: Poor Interventions PRN's used: Therapeutic interventions: 1:1 assessment, encouragement to express thoughts and feelings, active listening, therapeutic conversation, medication administration/education/monitoring, behavior monitoring and intervention as needed, positive reinforcement, Q 15 min safety checks. Restraints/seclusion/emergency medication: n/a Justification of Continued Inpatient Treatment: Pt needs medication adjustment and monitoring in a safe and therapeutic environment until stable to prevent harm to herself or others.
--- NOTE | 2019-11-11 18:47 | NUR ---
Pt.'s last Invega Sustaina injection was given on 2018 at [facility].
[2019-11-11 20:00] VITALS: BP 128/89
[2019-11-11] MEDS: PALIPERIDONE 3 MG TAB.ER.24 PO SCH (20:40)
[2019-11-11] MEDS: zolpidem 5mg tablet PO PRN (20:41)
--- NOTE | 2019-11-11 23:00 | NUR ---
Nursing Progress Note: Legal hold: 5250 as of 11/08 Client on involuntary status for DTS/DTO. Report received from SAHARA Parra with use of SBAR. Why are they here:. Patient admitted to [place] for [facility] on a 5150 for DTS at 2210. Patient was brought to the ED by police. Patient was found in the cemetery throwing rocks at baby headstones. Patient was making comments such as "I wish I was and to the police "you should kill me." Police had been called several times the night before on this patient and escorted her home. Patient stated she had thoughts of harming herself and others and is hearing auditory voices. Patient reports having a history of schizophrenia, bipolar and depression. Patient takes Prozac. Patient admits to occasional ETOH and notes she currently smokes crystal meth. Assessment What has happened this shift: Pt sits in community room with peers watching TV. She is cooperative and compliant with 1:1 assessment. She states she is still having auditory hallucinations and visual hallucinations at this time. "I can see veins and eyes everywhere, not all the time, but sometimes." She says the voices are "pretty constant." She denies suicidal ideation and homicidal ideation at this time. Panus area improving with nystatin powder. S/I, H/I: denies A/VH: +AH +VH Sleep: Refer to sleep assessment ADL's: Independent Group attendance: n/a Were meds taken: Yes Any med S/E: None observed or reported Mental Status Exam Appearance: Disheveled, wearing green unit scrubs and non skid socks. Eye contact: Direct Behavior: quiet, cooperative, visible to unit Speech: Clear, minimal Mood: calm Affect: Blunted Thought process: Disorganized Thought Content: Discharge Cognition: A/O x3 Insight: Fair Judgment: Poor Interventions PRN's used: Ambien Therapeutic interventions: 1:1 assessment, active listening, therapeutic conversation, medication administration/education/monitoring, behavior monitoring and intervention; reality orientation, re-assurance, positive reinforcement, Q 15 min safety checks. Restraints/seclusion/emergency medication: n/a Justification of Continued Inpatient Treatment: Pt continues to experience command auditory hallucinations telling her to kill herself and other random people.
[2019-11-12] MEDS: acetaminophen 325mg tablet PO PRN ×2 (02:24→19:13)
[2019-11-12] MEDS: mag hydrox/Alum hydrox/simeth 30ml oral suspension PO PRN ×2 (02:45→07:42)
[2019-11-12] MEDS: LORazepam 1 MG tablet PO PRN ×2 (02:49→16:43)
[2019-11-12] MEDS: FLUoxetine 20mg capsule PO SCH (07:42)
[2019-11-12] MEDS: pantoprazole 40mg Tablet.DR PO SCH (07:42)
[2019-11-12 07:54] VITALS: BP 109/67
[2019-11-12] MEDS: nystatin 15 GM powder TP SCH ×3 (09:37→20:54)
--- NOTE | 2019-11-12 10:55 | NUR ---
SS received t/c from attending PA, per t/c [facility] still does not have current meds regiment that pt was on from her prescriber @ the [facility]. SS again left w/[facility] to access pt's current meds regiment. Daiana Farooq FLEET SALES ASSOCIATE Addendum: 11/12/19 at 1114 by Daiana SAHU Amended: Links added.
--- NOTE | 2019-11-12 11:58 | NUR ---
CM Presenting Issues: SS had t/c with [facility]aca, Psychiatric CM @ [facility], per t/c Flaca will fax current meds regiment for pt shortly. Daiana Farooq, [employer]ARN [employer] ROOM WORKER Addendum: 11/12/19 at 1210 by Daiana Farooq Amended: Links added.
[2019-11-12] MEDS ORDERED: paliperidone palmitate inj 234 MG/1.5 ML SYRINGE IM ONE (14:50)
--- NOTE | 2019-11-12 14:55 | NUR ---
Nursing Progress Note: Legal hold: 5250 Client on voluntary/involuntary status for DTS/DTO[]. Report received from nurse with use of SBAR: SHARAD Chavez Why are they here: Patient was brought to the ED by police. Patient was [place] in the cemetery throwing rocks at baby headstones. Patient was making comments such as "I wish I was and to the police "you should kill me." Police had been called several times the night before on this patient and escorted her home. Patient stated she had thoughts of harming herself and others and is hearing auditory voices. Patient reports having a history of schizophrenia, bipolar and depression. Patient takes Prozac. Patient admits to occasional ETOH and notes she currently smokes crystal meth. Assessment What has happened this shift: Received pt. sleeping at the beginning of the shift, she awakens and appropriately greets this sign writer hand. Pt. presents as cooperative, slightly restless and agitated at times, and guarded. 1:1 completed at bedside, when questioned by this sign writer hand regarding why she is here, pt. states, "I went fucking crazy!" She then goes on to report that she is able to tell when she is having delusions, but last time (prior to coming here) she was unable to figure it out, so that's how she ended up here. Pt. denies any S/I or H/I, however states, "I would only hurt someone to protect myself, not purposefully." She endorses some paranoid delusional thinking that others (random people) want to hurt her. Pt. also reports ongoing A/CARREON which are no longer command in nature, and V/CARREON of "Shadows or colors." Pt. is up throughout the shift coloring with others and interacting appropriately. She will occasionally become agitated, however is able to be redirected. S/I, H/I: Pt. denies ,however states, "I would only hurt someone to protect myself, not purposefully." A/VH: Pt. reports ongoing A/CARREON which are no longer command in nature, and V/CARREON of "Shadows or colors." Sleep: Pt. reports she slept well, sleep hours are 7 ADL's: Requires some direction from staff Group attendance: N/A Were meds taken: Yes Any med S/E: None Mental Status Exam Appearance: Hair slightly disheveled, missing front teeth, appropriately dressed. Eye contact: Fair Behavior: cooperative, slightly restless and agitated at times, and guarded Speech: Soft and WNL, however becomes pressured and louder when agitated Mood: Pleasant, however Restless Affect: Labile Thought process: Tangental Thought Content: Paranoid delusions and ongoing A/V/CARREON Cognition: A&O Insight: Poor Judgment: POor Interventions PRN's used: Tylenol and Maalox Therapeutic interventions: Introduced self and established rapport, ensured contract for safety, maintained a safe and supportive environment, provided clear and simple instructions, attempted to reorient to reality, and maintained Q 15 min safety checks. Restraints/seclusion/emergency medication: None Justification of Continued Inpatient Treatment: Pt. requires titration of medications and a safe and therapeutic environment.
[2019-11-12 19:44] VITALS: BP 134/87
[2019-11-12] MEDS: lamoTRIgine 25mg tablet PO SCH (20:54)
[2019-11-12] MEDS: zolpidem 5mg tablet PO PRN (20:55)
[2019-11-12] MEDS ORDERED: PALIPERIDONE 3 MG TAB.ER.24 PO SCH (21:00)
--- NOTE | 2019-11-12 23:16 | NUR ---
Nursing Progress Note: Legal hold: 5250. exp: 11/23/19 Client on involuntary status for DTS/DTO. Report received from SAHARA Maier with use of SBAR. Why are they here:. Patient admitted to [place] for [facility] on a 5150 for DTS at 2210. Patient was brought to the ED by police. Patient was found in the cemetery throwing rocks at baby headstones. Patient was making comments such as "I wish I was and to the police "you should kill me." Police had been called several times the night before on this patient and escorted her home. Patient stated she had thoughts of harming herself and others and is hearing auditory voices. Patient reports having a history of schizophrenia, bipolar and depression. Patient takes Prozac. Patient admits to occasional ETOH and notes she currently smokes crystal meth. Assessment What has happened this shift: Pt was in her room resting during shift change. States she was doing good but wanted to know if she could have some Tylenol as she rated her ankle pain a 8/10. She also inquired about how early she could get her Zolpidem. Pt was cooperative during 1:1 physical assessment and took all her HS meds. She denies any S/I, H/I, A/VH, and states that she feels only a little bit depressed because she couldn't go home today. She also states that she got a little anxious and agitated after talking on the phone with her mom but after taking some Ativan she felt calmer. She states that she feels safe here and that after all is glad that she will be staying a couple more days. Pt states that her plan for discharge is to go back home to her mom where her aunt checks on her around the clock. This helps her maintain safe and medication compliant. S/I, H/I: Denies A/VH: Denies Sleep: Currently sleeping, see sleep assessment for total hours ADL's: Independent Group attendance: n/a Were meds taken: Yes Any med S/E: None noted or reported. Mental Status Exam Appearance: Heavy set middle aged women appropriately dressed wearing green unit scrubs Eye contact: Good, direct Behavior: Cooperative, calm, isolative. Speech: Normal rate and rhythm, mumbles at times Mood: "calm, much better right not" pt appears somewhat depressed Affect: Blunted, constricted Thought process: Mostly linear Thought Content: Medication, discharge plans. Cognition: A/O x3 Insight: Fair Judgment: Poor Interventions PRN's used: Ambien X1 Therapeutic interventions: 1:1 assessment, encouragement to express thoughts and feelings, active listening, therapeutic conversation, medication administration/education/monitoring, behavior monitoring and intervention as needed, positive reinforcement, Q 15 min safety checks. Restraints/seclusion/emergency medication: n/a Justification of Continued Inpatient Treatment: Pt needs medication adjustment and monitoring in a safe and therapeutic environment until stable to prevent harm to herself or others.
[2019-11-13] MEDS: pantoprazole 40mg Tablet.DR PO SCH (06:54)
[2019-11-13] MEDS: acetaminophen 325mg tablet PO PRN (06:54)
[2019-11-13] MEDS: FLUoxetine 20mg capsule PO SCH (07:00)
[2019-11-13 08:00] VITALS: BP 126/81
[2019-11-13] MEDS: nystatin 15 GM powder TP SCH ×3 (08:00→21:06)
[2019-11-13] MEDS ORDERED: QUEtiapine 25mg tablet PO PRN (10:55)
[2019-11-13] MEDS: LORazepam 1 MG tablet PO PRN ×2 (11:07→20:09)
--- NOTE | 2019-11-13 11:30 | NUR ---
Nursing Progress Note: Legal hold: 5250 Client on involuntary status for DTS/DTO Report received from nurse with use of SBAR: SHARAD Yeager Why are they here: Patient was brought to the ED by police. Patient was found in the cemetery throwing rocks at [facility]. Patient was making comments such as "I wish I was and to the police "you should kill me." Police had been called several times the night before on this patient and escorted her home. Patient stated she had thoughts of harming herself and others and is hearing auditory voices. Patient reports having a history of schizophrenia, bipolar and depression. Patient takes Prozac. Patient admits to occasional ETOH and notes she currently smokes crystal meth. Assessment What has happened this shift: Received pt. slightly agitated and pacing in the hallway, she reported that she was upset because she needed to use the bathroom to wash her hands, but her roommate was currently using it. Staff was able to redirect pt. to use the other sink available in her room and she voiced understanding and was able to re-group her emotions. Pt. then c/o a headache again this morning, PRN Tylenol administered with effectiveness. Pt. requests to take her AM medications as soon as possible, she continues to present as cooperative, slightly restless, agitated at times, and guarded. 1:1 completed, pt. denies any S/I or H/I. She states, "I get agitated with people, but I just walk away." This bond writer provided positive encouragement, and pt. reported contentment. Pt. denies any further A/CARREON, states, "They are just my own thoughts, but they are positive now." She denies any V/CARREON and no delusional statements made. Pt. then abruptly got up and left the conversation, stated, "I'm going to lay down, wake me up when the gets here." Pt. later up in the hallway anxiously waiting to talk to MARTY Nunn. After meeting with her, pt. requested PRN Ativan r/t anxiety, administered with effectiveness. Pt. interacting with others and napping intermittently throughout the shift. S/I, H/I: Denies A/VH: Denies Sleep: Pt. reports she slept well, sleep hours are 8 ADL's: Requires some direction from staff Group attendance: N/A Were meds taken: Yes Any med S/E: None Mental Status Exam Appearance: Hair slightly disheveled, missing front teeth, appropriately dressed. Eye contact: Fair Behavior: cooperative, slightly restless and agitated at times, and guarded Speech: Soft and WNL, however becomes pressured and louder when agitated Mood: Restless/slightly agitated, but can be redirected Affect: Labile Thought process: Tangental, however can be redirected Thought Content: Continued restlessness and agitation at times, but able to be redirected. Possible A/CARREON, but pt. reports they are just her own thoughts. Cognition: A&O 4 Insight: Poor Judgment: Poor to fair Interventions PRN's used: Tylenol and Ativan Therapeutic interventions: Ensured contract for safety, maintained a safe and supportive environment, provided clear and simple instructions, attempted to reorient to reality, monitored behaviors and provided intervention as needed, provided positive encouragement, and maintained Q 15 min safety checks. Restraints/seclusion/emergency medication: None Justification of Continued Inpatient Treatment: Pt. requires titration of medications and a safe and therapeutic environment. Per MARTY Nunn she will likely discharge on Saturday after her next Invega injection.
[2019-11-13 20:00] VITALS: BP 110/77
[2019-11-13] MEDS: zolpidem 5mg tablet PO PRN (21:07)
[2019-11-13] MEDS: PALIPERIDONE 3 MG TAB.ER.24 PO SCH (21:07)
[2019-11-13] MEDS: lamoTRIgine 25mg tablet PO SCH (21:07)
--- NOTE | 2019-11-14 01:19 | NUR ---
Nursing Progress Note: Legal hold: 5250. exp: 11/23/19 Client on involuntary status for DTS/DTO. Report received from SAHARA Maeir with use of SBAR. Why are they here:. Patient admitted to [place] for [facility] on a 5150 for DTS at 2210. Patient was brought to the ED by police. Patient was found in the cemetery throwing rocks at baby headstones. Patient was making comments such as "I wish I was and to the police "you should kill me." Police had been called several times the night before on this patient and escorted her home. Patient stated she had thoughts of harming herself and others and is hearing auditory voices. Patient reports having a history of schizophrenia, bipolar and depression. Patient takes Prozac. Patient admits to occasional ETOH and notes she currently smokes crystal meth. Assessment What has happened this shift: Pt was in recreation room watching tv. She states that she is doing better today. Her pain is at zero. Later on pt requested Ativan for anxiety. When asked if she was feeling anxious she states Im about to because they wont let me use the phone, I just want to talk to my mom. She rates her anxiety level a 5/10. Pt was given Ativan with good effect. Pt was cooperative during 1:1 physical assessment and took all her meds. She denies all symptoms and states that the last time she experienced any hallucinations was about three days ago. She was observed interacting appropriately with other patients and there was no agitation observed. Pt requested Ambien for sleep and this was given with good effect. S/I, H/I: Denies A/VH: Denies Sleep: Currently sleeping, see sleep assessment for total hours ADL's: Independent Group attendance: None during shift superintendent Were meds taken: Yes Any med S/E: None noted or reported. Mental Status Exam Appearance: Heavy set middle aged women appropriately dressed wearing green unit scrubs Eye contact: Good, direct Behavior: Cooperative, calm, less isolative today Speech: Normal rate and rhythm, mumbles at times Mood: calm for the most part but did experience some anxiety Affect: Elevated at times Thought process: Circumstantial Thought Content: Medication, discharge plans, snack Cognition: A/O x3 Insight: Fair Judgment: Poor Interventions PRN's used: Ambien X1, Ativan X1 Therapeutic interventions: 1:1 assessment, encouragement to express thoughts and feelings, active listening, therapeutic conversation, medication administration/education/monitoring, behavior monitoring and intervention as needed, positive reinforcement, Q 15 min safety checks. Restraints/seclusion/emergency medication: n/a Justification of Continued Inpatient Treatment: Pt needs medication adjustment and monitoring in a safe and therapeutic environment until stable to prevent harm to herself or others.
[2019-11-14] MEDS: LORazepam 1 MG tablet PO PRN ×2 (02:24→14:37)
[2019-11-14] MEDS: FLUoxetine 20mg capsule PO SCH (07:06)
[2019-11-14] MEDS: pantoprazole 40mg Tablet.DR PO SCH (07:06)
[2019-11-14] MEDS: acetaminophen 325mg tablet PO PRN (07:07)
[2019-11-14 08:00] VITALS: BP 113/70
[2019-11-14] MEDS: nystatin 15 GM powder TP SCH ×3 (08:00→20:51)
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
[2019-11-14 19:32] VITALS: BP 124/73
[2019-11-14] MEDS: zolpidem 5mg tablet PO PRN (20:51)
[2019-11-14] MEDS: PALIPERIDONE 3 MG TAB.ER.24 PO SCH (20:51)
[2019-11-14] MEDS: lamoTRIgine 25mg tablet PO SCH (20:51)
--- NOTE | 2019-11-14 23:14 | NUR ---
Nursing Progress Note: Legal hold: 5250. exp: 11/23/19 Client on involuntary status for DTS/DTO. Report received from SAHARA Maier with use of SBAR. Why are they here:. Patient admitted to [place] [facility] on a 5150 for DTS at 2210. Patient was brought to the ED by police. Patient was found in the cemetery throwing rocks at baby headstones. Patient was making comments such as "I wish I was and to the police "you should kill me." Police had been called several times the night before on this patient and escorted her home. Patient stated she had thoughts of harming herself and others and is hearing auditory voices. Patient reports having a history of schizophrenia, bipolar and depression. Patient takes Prozac. Patient admits to occasional ETOH and notes she currently smokes crystal meth. Assessment What has happened this shift: Pt was observed ambulating the isles during shift change. She approached this RN and stated that she wanted her nighttime meds as early as possible. Pt states that she is doing okay today and is looking forward to going home on Saturday. Pt also states that she was to be woken up if her mother calls when shes sleeping. She experience some agitation because she couldnt find a phone to call her mom. She did eventually got a hold of her mom and when questioned about how that went she states I dont want to talk about it. Pt was cooperative during 1:1 physical assessment and took all her meds. Pt denies S/I, H/I, A/VH but appears to be somewhat confused about the medication she is getting. I just want to go to sleep and wait until Saturday to go home with my mom. Pt was given Ambien per her request and went to sleep. S/I, H/I: Denies A/VH: Denies Sleep: Currently sleeping, see sleep assessment for total hours ADL's: Independent Group attendance: None during shiftman Were meds taken: Yes Any med S/E: None noted or reported. Mental Status Exam Appearance: Heavy set middle aged women appropriately dressed wearing green unit scrubs Eye contact: Good, direct Behavior: Cooperative, appears agitated and restless Speech: Normal rate and rhythm, mumbles at times Mood: Appears less depressed Affect: Elevated at times Thought process: Circumstantial Thought Content: Medication, discharge plans, talking to her mom Cognition: A/O x3 Insight: Fair Judgment: Poor Interventions PRN's used: Ambien X1 Therapeutic interventions: 1:1 assessment, encouragement to express thoughts and feelings, active listening, therapeutic conversation, medication administration/education/monitoring, behavior monitoring and intervention as needed, positive reinforcement, Q 15 min safety checks. Restraints/seclusion/emergency medication: n/a Justification of Continued Inpatient Treatment: Pt needs medication adjustment and monitoring in a safe and therapeutic environment until stable to prevent harm to herself or others.
[2019-11-15] MEDS: FLUoxetine 20mg capsule PO SCH (06:55)
[2019-11-15] MEDS: pantoprazole 40mg Tablet.DR PO SCH (06:55)
[2019-11-15 08:00] VITALS: BP 112/75
[2019-11-15] MEDS: nystatin 15 GM powder TP SCH ×3 (08:00→20:34)
[2019-11-15] MEDS: LORazepam 1 MG tablet PO PRN ×2 (08:43→19:56)
--- NOTE | 2019-11-15 11:32 | NUR ---
Nursing Progress Note: Legal hold: 5250 Client on involuntary status for DTS/DTO Report received from nurse with use of SBAR: SHARAD Yeager Why are they here: Patient was brought to the ED by police. Patient was found [place] the [place] [facility]. Patient was making comments such as "I wish I was and to the police "you should kill me." Police had been called several times the night before on this patient and escorted her home. Patient stated she had thoughts of harming herself and others and is hearing auditory voices. Patient reports having a history of schizophrenia, bipolar and depression. Patient takes Prozac. Patient admits to occasional ETOH and notes she currently smokes crystal meth. Assessment What has happened this shift: Received pt. up sitting in the hallway at the beginning of the shift, she then returned back to bed. 1:1 completed at bedside, pt. continues to deny S/I, however admits to ongoing depression. She states, "I'm depressed all of the time, but I am excited to go home and that helps." Pt. does report that she feels that the medications are helping. When questioned regarding anxiety, she rates anxiety as a 4/10, states, "I don't need to take anything though. I still get agitated sometimes, but I can lay down and relax." This service writer provided positive encouragement to pt., and encouraged her to let staff know if her anxiety/agitation started to increase. Pt. came to this service writer at approximately 0830 after pacing in the hallway, and appeared restless/agitated. She stated, "I'm starting to feel agitated, I think I need something," PRN Ativan administered with effectiveness. Pt. continues to deny any A/V/CARREON and no delusional statements made this shift. No c/o a headache this morning, and pt. remains slightly withdrawn but interacting appropriately throughout the shift. S/I, H/I: Denies A/VH: Denies, does not appear internally preoccupied Sleep: Pt. reports she slept well, sleep hours are 6.5 ADL's: Requires redirection from staff at times when agitated/restless Group attendance: N/A Were meds taken: Yes Any med S/E: None Mental Status Exam Appearance: Hair freshly washed and neat, pt. appropriately dressed Eye contact: Fair Behavior: Cooperative, slightly restless and agitated at times, and guarded Speech: Soft and WNL, however becomes pressured and louder when agitated Mood: Guarded, intermittent restlessness/agitation, but responds to redirection Affect: Labile Thought process: Appears linear Thought Content: Continued restlessness and agitation at times, but able to be redirected. Continued p Preoccupation with desire to discharge Cognition: A&O 4 Insight: Fair Judgment: Fair Interventions PRN's used: Ativan Therapeutic interventions: Ensured contract for safety, maintained a safe and supportive environment, provided clear and simple instructions, monitored behaviors and provided intervention as needed, provided positive encouragement, and maintained Q 15 min safety checks. Restraints/seclusion/emergency medication: None Justification of Continued Inpatient Treatment: Pt. requires titration of medications and a safe and therapeutic environment. Per MARTY Nunn she will likely discharge on Saturday after her next Invega injection.
[2019-11-15] MEDS: acetaminophen 325mg tablet PO PRN (19:19)
[2019-11-15 19:40] VITALS: BP 126/78
[2019-11-15] MEDS: lamoTRIgine 25mg tablet PO SCH (20:33)
[2019-11-15] MEDS: PALIPERIDONE 3 MG TAB.ER.24 PO SCH (20:33)
[2019-11-15] MEDS: zolpidem 5mg tablet PO PRN (20:34)
--- NOTE | 2019-11-15 23:28 | NUR ---
Nursing Progress Note: Legal hold: 5250. exp: 11/23/19 Client on involuntary status for DTS/DTO. Report received from SAHARA Maier with use of SBAR. Why are they here:. Patient admitted to [place] for [facility] on a 5150 for DTS at 2210. Patient was brought to the ED by police. Patient was found in the cemetery throwing rocks at baby headstones. Patient was making comments such as "I wish I was and to the police "you should kill me." Police had been called several times the night before on this patient and escorted her home. Patient stated she had thoughts of harming herself and others and is hearing auditory voices. Patient reports having a history of schizophrenia, bipolar and depression. Patient takes Prozac. Patient admits to occasional ETOH and notes she currently smokes crystal meth. Assessment What has happened this shift: Pt was observed ambulating the isles during shift change. Pt again asked to have She states that she wants to make sure that her mom get a call tomorrow morning to let her know what time she will have to pick her up. Will endorse with day shift nurse. Pt c/o headache and Tylenol was given with food effect. She states that she just wants to get a good night sleep for tonight. Pt denies all symptoms and states that she just wants to get home. Pt was cooperative during 1:1 physical assessment and took all her scheduled medications along with Zolpidem. She was not observed out of her room after medication pass and slept through out the night. S/I, H/I: Denies A/VH: Denies Sleep: Currently sleeping, see sleep assessment for total hours ADL's: Independent Group attendance: None during operation shift supervisor Were meds taken: Yes Any med S/E: None noted or reported. Mental Status Exam Appearance: Heavy set middle aged women appropriately dressed wearing green unit scrubs Eye contact: Good, direct Behavior: Cooperative, appears agitated and restless, keeps to herself mainly Speech: Pressured Mood: Appears less depressed, somewhat anxious Affect: Elevated at times Thought process: Circumstantial Thought Content: Medication, discharge plans, talking to her mom Cognition: A/O x3 Insight: Fair Judgment: Poor Interventions PRN's used: Ambien X1 Therapeutic interventions: 1:1 assessment, encouragement to express thoughts and feelings, active listening, therapeutic conversation, medication administration/education/monitoring, behavior monitoring and intervention as needed, positive reinforcement, Q 15 min safety checks. Restraints/seclusion/emergency medication: n/a Justification of Continued Inpatient Treatment: Pt needs medication adjustment and monitoring in a safe and therapeutic environment until stable to prevent harm to herself or others.
[2019-11-16] MEDS ORDERED: paliperidone palmitate 156 mg/ml inj.**IM only IM ONE (07:30)
[2019-11-16] MEDS: pantoprazole 40mg Tablet.DR PO SCH (07:52)
[2019-11-16] MEDS: FLUoxetine 20mg capsule PO SCH (07:52)
[2019-11-16] MEDS: nystatin 15 GM powder TP SCH (08:00)
--- NOTE | 2019-11-16 08:29 | NUR ---
DCP Presenting Issues: Pt's ready for d/c home and needs to see attending physician to finalize d/c meds. Interventions: SS consulted w/attending physician re pt's d/c needs. Per consultation, attending physician will see pt & finalize her d/c meds and d/c pt home. Pt [facility] f[facility]u with [facility] & [facility] services. Plan: SS will meet w/pt to finalize dcp. Daiana Farooq LCSW Addendum: 11/16/19 at 0835 by Daiana SAHU Amended: Links added.
[2019-11-16 08:48] VITALS: BP 104/65
[2019-11-16] MEDS ORDERED: FLUO-167 PO (10:53)
[2019-11-16] MEDS ORDERED: PANT40TA4 PO (10:53)
[2019-11-16] MEDS ORDERED: LAMO25TA5 PO (10:53)
[2019-11-16] MEDS ORDERED: TRAZ-251 PO (10:53)
--- NOTE | 2019-11-16 11:47 | NUR ---
Discharge Note: Pt dc'd to mother at 1140. Pt escorted to front of hospital by staff and security. Discharge Instructions including medications and f/u appt explained to the pt and she verbalized understanding and signed and copy given to the pt. Smoking cessation information given to the pt. Pt happy for dc and denies depression and denies S.I./H.I. All belongings returned to the pt and she signed as having received all.
== END 2019-11-16 11:39 | disposition short-term general hospital (02) | DRG 885 ==
LOC: ADULT MH 21:20
PROVIDERS: ADMIT Psychiatry & Neurology Psychiatry; ATTEND Psychiatry & Neurology Psychiatry
DX: F25.9 Schizoaffective disorder, unspecified (principal); R45.851 Suicidal ideations; Z98.84 Bariatric surgery status; K21.9 Gastro-esophageal reflux disease without esophagitis; F17.200 Nicotine dependence, unspecified, uncomplicated; R74.8 Abnormal levels of other serum enzymes; F15.10 Other stimulant abuse, uncomplicated; Z81.8 Family history of other mental and behavioral disorders
CPT/HCPCS: 36415; 71045; 71046; 80053; 80305; 80320; 81001; 81025; 83036; 84443; 85025; 87081; 93005; Q0163

== ENCOUNTER 2021-09-16 10:09 | Emergency (ER) | payer MEDICARE, MEDICAID ==
[~2021-09-16] VITALS: Ht 165.1 cm; Wt 90.9 kg
[~2021-09-16 10:09] MED LIST changes: -FLUO-12 PO; +FLUO-167 PO; +LAMO25TA5 PO; +PANT40TA54 PO; +TRAZ-251 PO; -ZOLP10TA PO
[2021-09-16 10:17] VITALS: BP 132/83
== END 2021-09-16 10:23 ==
LOC: ER 10:10
DX: I10 Essential (primary) hypertension (principal); R45.1 Restlessness and agitation; F17.200 Nicotine dependence, unspecified, uncomplicated; F15.90 Other stimulant use, unspecified, uncomplicated; Z72.89 Other problems related to lifestyle; Z91.030 Bee allergy status; Z79.899 Other long term (current) drug therapy
CPT/HCPCS: 99283

== ENCOUNTER 2021-09-23 09:57 | Emergency (ER) | payer MEDICARE, MEDICAID ==
[~2021-09-23] VITALS: Ht 165.1 cm; Wt 136.4 kg
[2021-09-23 11:44] LABS: BASOPHILS # (AUTO) 0.1 X10'3 (0-0.2); BASOPHILS % (AUTO) 0.8 % (0-1); EOSINOPHILS # (AUTO) 0.1 X10'3 (0-0.9); EOSINOPHILS % (AUTO) 0.7 % (0-6); HEMATOCRIT 28.7 % (35.0-45.0); HEMOGLOBIN 8.6 g/dl (12.0-16.0); LYMPHOCYTES # (AUTO) 1.4 X10'3 (1.1-4.8); LYMPHOCYTES % (AUTO) 18.9 % (21-51); MEAN CORPUSCULAR HEMOGLOBIN 19.5 PG (27.0-31.0); MEAN PLATELET VOLUME 7.1 FL (7.4-10.4); MONOCYTES # (AUTO) 0.4 X10'3 (0-0.9); NEUTROPHILS # (AUTO) 5.4 X10'3 (1.8-7.7); NEUTROPHILS % (AUTO) 73.6 % (42-75); PLATELET COUNT 520 X10'3 (140-440); RED BLOOD COUNT 4.41 X10'6 (4.20-5.60); RED CELL DISTRIBUTION WIDTH 20.5 % (11.5-14.5); WHITE BLOOD COUNT 7.3 X10'3 (4.5-11.0)
[2021-09-23 11:58] LABS: ALANINE AMINOTRANSFERASE 30 U/L (12-78); ALBUMIN 3.9 G/DL (3.4-5.0); ALKALINE PHOSPHATASE 132 IU/L (46-116); ANION GAP 14 (8-16); ASPARTATE AMINO TRANSFERASE 26 U/L (10-37); BILIRUBIN,TOTAL 0.3 MG/DL (0.1-1.0); BLOOD UREA NITROGEN 10 MG/DL (7-18); CALCIUM 9.2 MG/DL (8.5-10.1); CHLORIDE 103 MMOL/L (99-107); CREATININE 0.77 MG/DL (0.40-0.90); GLUCOSE 135 MG/DL (70-104); POTASSIUM 3.7 MMOL/L (3.5-5.1); SODIUM 142 MMOL/L (135-145); TOTAL CARBON DIOXIDE 25.5 MMOL/L (24-32); TOTAL PROTEIN 7.9 G/DL (6.4-8.2); eGFR 83 ML/MIN
[2021-09-23 12:06] LABS: ETHANOL < 0.010 GM/DL (0.0-0.010)
[2021-09-23] MEDS ORDERED: bisacodyl 5mg tablet.DR PO PRN (12:20)
[2021-09-23] MEDS ORDERED: IRON,CARBONYL (45 MG ELEMENTAL IRON) SR.TABLET PO SCH (12:20)
--- NOTE | 2021-09-23 12:30 | NUR ---
PT. TRANSFRREDFROM MAIN ER TO OVERFLOW AREA. PT. ESCORTED BY SECURITY OFFICERS AND MHT. PT. PLACED IN BED #22 AND ORIENTED TO THE UNIT. PT. PRESENTS MANIC WITH HYPERVERBAL SPEECH. DENIES ANY CURRENT SI/HI BUT STATES CURRENT A/V HALLUCINATIONS. PT. STATES SHE TALKS TO SPIRITS AND SHE SEES SHADOWS. DENIES ANY COMMANDS TO HARM SELF OR OTHERS. PT. COOPERATIVE WITH ASSESSMENT. THIS SENIOR PASTOR SPOKE WITH PATIENT'S MOTHER TO VERIFY HOME DUE TO PHARMACTYBEING CLOSED TODAY. STAFF WILL CONTINUE TO MONITOR AND REDIRECT BEHAVIOR NEEDED.
[2021-09-23 12:52] LABS: ANISOCYTOSIS 3+; ELLIPTOCYTES FEW; HYPOCHROMASIA 2+; MICROCYTOSIS 2+; PLATELET ESTIMATE INCREASED; POLYCHROMASIA FEW; TEAR DROP CELLS 1+
[2021-09-23 12:53] LABS: STOMATOCYTES FEW
[2021-09-23 13:07] LABS: CLARITY,URINE CLEAR (Clear); COLOR,URINE YELLOW (Yellow); GLUCOSE, URINE NEGATIVE (Neg); KETONES,URINE NEGATIVE (Neg); LEUKOCYTE ESTERASE ,URINE NEGATIVE (Neg); NITRITES, URINE NEGATIVE (Neg); OCCULT BLOOD,URINE NEGATIVE (Neg); PH,URINE 6.5 (4.8-8.0); PROTEIN,URINE NEGATIVE (Neg); UROBILINOGEN,URINE 0.2 E.U/dL (0.2-1.0)
[2021-09-23 13:08] LABS: URINE HCG NEGATIVE (NEG)
[2021-09-23 13:11] LABS: UA COLLECTION TYPE CLN CATCH MIDSTREAM
--- NOTE | 2021-09-23 13:13 | NUR ---
breaking primary nurse at this time ,covid swab done and sent to the lab.
[2021-09-23 13:14] LABS: URINE AMPHETAMINE SCREEN NEGATIVE (Neg); URINE BARBITUATE SCREEN NEGATIVE (Neg); URINE BENZODIAZEPINES SCREEN NEGATIVE (Neg); URINE CANNABINOID SCREEN NEGATIVE (Neg); URINE COCAINE SCREEN NEGATIVE (Neg); URINE METHADONE SCREEN NEGATIVE (Neg); URINE OPIATE SCREEN NEGATIVE (Neg); URINE PHENCYCLIDINE SCREEN NEGATIVE (Neg)
[2021-09-23] MEDS ORDERED: OLANZapine 2.5MG tablet PO ONE (13:55)
[2021-09-23] MEDS ORDERED: LAMO100T2 PO (16:56)
[2021-09-23] MEDS ORDERED: LUMA42CA (16:56)
[2021-09-23] MEDS ORDERED: QUET25TA PO (16:56)
[2021-09-23] MEDS ORDERED: PROP10TA10 PO (16:56)
--- NOTE | 2021-09-23 17:00 | NUR ---
[facility] CLINICIAN AT BEDSIDE
[2021-09-23] MEDS ORDERED: LUMA42CA PO (17:43)
[2021-09-23] MEDS ORDERED: propranolol 10mg tablet PO PRN (17:45)
[2021-09-23] MEDS ORDERED: QUEtiapine 25mg tablet PO PRN (17:45)
--- NOTE | 2021-09-23 18:25 | NUR ---
PT. SCHEDULED FOR DISCHARGE HOME WITH MOTHER. DISCHARGE INSTRUCTIONS DISCUSSED WITH PATIENT. AWAITING PICK-UP FROM MOTHER.
--- NOTE | 2021-09-23 18:37 | NUR ---
PATIENT LEFT THE UNIT IN THE ACCOMMPANY WITH HER MOTHER. FOLLOW UP TEACHING DONE.
[2021-09-23 18:41] VITALS: BP 119/74
[2021-09-23] MEDS ORDERED: lamoTRIgine 100mg tablet PO SCH (21:00)
[2021-09-24] MEDS ORDERED: [UNRECOGNIZED DRUG - OTHER] PO SCH (08:00)
== END 2021-09-23 19:30 | disposition home or self-care (01) ==
LOC: ER 09:57
DX: F79 Unspecified intellectual disabilities (principal); Z20.822 Contact with and (suspected) exposure to COVID-19; D50.9 Iron deficiency anemia, unspecified; F41.9 Anxiety disorder, unspecified; F31.9 Bipolar disorder, unspecified; F20.9 Schizophrenia, unspecified; F15.90 Other stimulant use, unspecified, uncomplicated; Z72.89 Other problems related to lifestyle; Z91.030 Bee allergy status; Z79.899 Other long term (current) drug therapy
CPT/HCPCS: 36415; 80053; 80305; 80320; 81003; 81025; 84443; 85008; 85025; 87635; 99285; C9803

== ENCOUNTER 2021-10-11 18:05 | Inpatient (IN) | payer MEDICARE, MEDICAID ==
[~2021-10-11] VITALS: Ht 165.1 cm; Wt 125.8 kg
[~2021-10-11 18:05] MED LIST changes: -FLUO-167 PO; +LAMO100T2 PO; -LAMO25TA5 PO; +LUMA42CA PO; -PANT40TA54 PO; +PROP10TA10 PO; +QUET25TA PO; -TRAZ-251 PO
--- NOTE | 2021-10-11 19:02 | NUR ---
The patient was BIB EMS from her psychiatric appointment at the [facility]. She was in an acute manic state and they have been unable to manage her alem as an outpatient. She has a history of schizoaffective bipolar and is frequently noncompliant with her medications. She recently received a long acting injection of Invega on September 28. She has an ankle monitor on. She presents as very manic. Her speech is rapid, disorganized and nonstop. She is intrussive.
[2021-10-11] MEDS ORDERED: diphenhydrAMINE 25mg capsule PO STA (19:23)
[2021-10-11] MEDS ORDERED: OLANZapine 5mg rapidly disint. tablet PO ONE (19:25)
[2021-10-11] MEDS ORDERED: LORazepam 1 MG tablet PO ONE (19:25)
--- NOTE | 2021-10-11 19:42 | NUR ---
The patient continues to talk nonstop. She is laughing to herself as well. Her speech is nonsensical. Discussed case with Dr. Del Cid and medications were ordered and the patient took them PO.
[2021-10-11 19:56] LABS: URINE AMPHETAMINE SCREEN POSITIVE (Neg); URINE BARBITUATE SCREEN NEGATIVE (Neg); URINE BENZODIAZEPINES SCREEN NEGATIVE (Neg); URINE CANNABINOID SCREEN NEGATIVE (Neg); URINE COCAINE SCREEN NEGATIVE (Neg); URINE METHADONE SCREEN NEGATIVE (Neg); URINE OPIATE SCREEN NEGATIVE (Neg); URINE PHENCYCLIDINE SCREEN NEGATIVE (Neg)
[2021-10-11 19:58] LABS: CLARITY,URINE SLIGHTLY CLOUDY (Clear); GLUCOSE, URINE NEGATIVE (Neg); KETONES,URINE TRACE mg/dl (Neg); LEUKOCYTE ESTERASE ,URINE NEGATIVE (Neg); NITRITES, URINE NEGATIVE (Neg); OCCULT BLOOD,URINE NEGATIVE (Neg); PROTEIN,URINE TRACE mg/dl (Neg); UROBILINOGEN,URINE 0.2 E.U/dL (0.2-1.0)
--- NOTE | 2021-10-11 19:58 | NUR ---
The patient does present as less hyperverbal. Psychomotor agitation has decreased.
[2021-10-11 19:59] LABS: COLOR,URINE DARK YELLOW (Yellow); UA COLLECTION TYPE VOIDED
[2021-10-11 20:02] LABS: BASOPHILS % (AUTO) 0.6 % (0-1); EOSINOPHILS # (AUTO) 0.1 X10'3 (0-0.9); EOSINOPHILS % (AUTO) 1.2 % (0-6); HEMOGLOBIN 8.4 g/dl (12.0-16.0); LYMPHOCYTES # (AUTO) 1.6 X10'3 (1.1-4.8); LYMPHOCYTES % (AUTO) 20.4 % (21-51); MEAN CORPUSCULAR HEMOGLOBIN 19.7 PG (27.0-31.0); MEAN CORPUSCULAR VOLUME 65.7 FL (78-98); MEAN PLATELET VOLUME 7.1 FL (7.4-10.4); MONOCYTES # (AUTO) 0.5 X10'3 (0-0.9); NEUTROPHILS # (AUTO) 5.5 X10'3 (1.8-7.7); NEUTROPHILS % (AUTO) 70.8 % (42-75); PLATELET COUNT 420 X10'3 (140-440); RED BLOOD COUNT 4.27 X10'6 (4.20-5.60); RED CELL DISTRIBUTION WIDTH 20.5 % (11.5-14.5); WHITE BLOOD COUNT 7.8 X10'3 (4.5-11.0)
[2021-10-11 20:13] LABS: ALANINE AMINOTRANSFERASE 25 U/L (12-78); ALBUMIN 3.6 G/DL (3.4-5.0); ALBUMIN/GLOBULIN RATIO 0.8 (1.1-1.5); ALKALINE PHOSPHATASE 123 IU/L (46-116); ANION GAP 10 (8-16); ASPARTATE AMINO TRANSFERASE 30 U/L (10-37); BILIRUBIN,TOTAL 0.4 MG/DL (0.1-1.0); BLOOD UREA NITROGEN 11 MG/DL (7-18); BUN/CREATININE RATIO 15.1 (6.6-38.0); CALCIUM 8.9 MG/DL (8.5-10.1); CHLORIDE 105 MMOL/L (99-107); CREATININE 0.73 MG/DL (0.40-0.90); GLUCOSE 100 MG/DL (70-104); POTASSIUM 3.5 MMOL/L (3.5-5.1); SODIUM 140 MMOL/L (135-145); TOTAL CARBON DIOXIDE 24.6 MMOL/L (24-32); TOTAL PROTEIN 7.9 G/DL (6.4-8.2); eGFR 88 ML/MIN
[2021-10-11 20:13] LABS: BACTERIA,URINE 3+ /HPF (Neg); MUCUS STRANDS FEW /LPF (Neg); RBC,URINE 0-2 /HPF (0-2); SQUAMOUS EPITHELIAL CELL,UR MODERATE /LPF (FEW)
[2021-10-11 20:21] LABS: ETHANOL < 0.010 GM/DL (0.0-0.010)
--- NOTE | 2021-10-11 20:59 | NUR ---
The patient appears to be sleeping
[2021-10-11 21:35] LABS: ANISOCYTOSIS 3+; MICROCYTOSIS 2+; PLATELET ESTIMATE NORMAL
[2021-10-11 21:36] LABS: ELLIPTOCYTES FEW; HYPOCHROMASIA 1+; LARGE PLATELETS FEW; POLYCHROMASIA 1+
[2021-10-11 21:37] LABS: TARGET CELLS FEW
--- NOTE | 2021-10-11 23:21 | NUR ---
The patient awake and requested/received a snack
--- NOTE | 2021-10-12 00:34 | NUR ---
Packet sent to [facility]
--- NOTE | 2021-10-12 01:41 | NUR ---
The patient appears to be sleeping and making soft snoring sounds
--- NOTE | 2021-10-12 03:36 | NUR ---
The patient has been awake off and on. She currently is sitting up on the side of her bed
--- NOTE | 2021-10-12 05:33 | NUR ---
The patient is currently asleep but she has been awake off and on throughout the night. When she is awake her speech is no longer hyperverbal.
--- NOTE | 2021-10-12 06:40 | NUR ---
Patient appears to be sleeping on left side. No distress observed. Patient has a 1799 placed with HX of bipolar and meth use (+for Meth). Continue to monitor.
--- NOTE | 2021-10-12 07:26 | NUR ---
Patient got up and said she was told that breakfast was at 7 and she wanted it. RN explained that breakfast usually comes around 8. Patient stated I just want my breakfast and medication then I want to go home. Continue to monitor.
--- NOTE | 2021-10-12 08:05 | NUR ---
Patient eating breakfast at bedside. No distress observed. Continue to monitor.
[2021-10-12] MEDS: QUEtiapine 25mg tablet PO PRN (09:04)
[2021-10-12] MEDS: propranolol 10mg tablet PO PRN (09:04)
--- NOTE | 2021-10-12 09:30 | NUR ---
Patient sleeping on right side. No distress observed. Continue to monitor.
--- NOTE | 2021-10-12 11:05 | NUR ---
Patient spoke to her mom earlier and told her mom to pick her up. RN told patient that she is not released and cannot leave yet. Patient told mom to wait until she calls her and tells her she can be picked up. RN does not believe patient meets criteria for a 5150 hold. Patient had used meth and is taking her medication. Continue to monitor.
--- NOTE | 2021-10-12 12:05 | NUR ---
[facility], evaluating patient. No distress observed.
--- NOTE | 2021-10-12 12:38 | NUR ---
Patient placed on a 5150 due to mother would not safety plan. Mother states patient is wandering and mother fears for her safety. Patient advised and was okay. Continue to monitor.
--- NOTE | 2021-10-12 13:13 | NUR ---
Patient sleeping on left side. No distress observed. Continue to monitor.
--- NOTE | 2021-10-12 13:23 | NUR ---
Mom's phone number [phone]
--- NOTE | 2021-10-12 14:05 | NUR ---
Patient called her mom to bring her corn breeder for her ankle monitor. Patient then went back to sleep. Continue to monitor.
--- NOTE | 2021-10-12 15:25 | NUR ---
Patient with emesis. RN rec'd order for 4 mg Zofran x 1. Continue to monitor.
[2021-10-12] MEDS ORDERED: ondansetron 4mg rapidly disintigrating tab PO ONE (15:35)
--- NOTE | 2021-10-12 19:00 | NUR ---
The patient is resting on her bed after eating her dinner. She currently denies that she is having nausea. She denies A/V hallucinations. She denies thoughts to harm herself or others. When asked how her mood was she stated, "A lot better. I'm not as agitated"
[2021-10-12] MEDS: lamoTRIgine 100mg tablet PO SCH (20:09)
--- NOTE | 2021-10-12 20:33 | NUR ---
THe patient appears to be sleeping. She has been accepted at [facility] and will be transferred later in the shift per the head charger
--- NOTE | 2021-10-12 23:14 | NUR ---
The patient appears to be sleeping
--- NOTE | 2021-10-13 00:01 | NUR ---
The patient appears to be sleeping
--- NOTE | 2021-10-13 01:50 | NUR ---
The patient appears to be sleeping
[2021-10-13] MEDS ORDERED: loperamide 2mg capsule PO PRN (02:40)
[2021-10-13] MEDS ORDERED: acetaminophen 325mg tablet PO PRN (02:40)
[2021-10-13] MEDS ORDERED: magnesium hydroxide 30ml (MOM) UD suspension PO PRN (02:40)
[2021-10-13] MEDS ORDERED: mag hydrox/Alum hydrox/simeth 30ml oral suspension PO PRN (02:40)
[2021-10-13 03:01] VITALS: BP 131/76
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
[2021-10-13] MEDS: propranolol 10mg tablet PO PRN ×2 (07:56→15:22)
[2021-10-13] MEDS: QUEtiapine 25mg tablet PO PRN ×2 (07:56→15:22)
[2021-10-13 08:00] VITALS: BP 111/71
[2021-10-13 08:58] VITALS: BP 111/71
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
[2021-10-13 15:21] VITALS: BP 140/83
[2021-10-13] MEDS: acetaminophen 325mg tablet PO PRN (15:23)
[2021-10-13 19:42] VITALS: BP 128/62
[2021-10-13] MEDS: lamoTRIgine 100mg tablet PO SCH (20:25)
[2021-10-13] MEDS: nystatin 15 GM powder TP SCH (20:35)
--- NOTE | 2021-10-14 04:40 | NUR ---
Nursing Progress Note: Legal hold: 5150 Client on voluntary/involuntary status for GD/DTS Report received from nurse Darrion OROURKE with use of SBAR. Why are they here: Per 5150: Elisa has decompensated wandering, experiencing command auditory hallucinations, and engaging in activities with extreme disregard to personal safety. Unable to safety plan with family. She has a Hx of Schizoaffective D/O, Bipolar. Assessment What has happened this shift: Patient found sleeping at change of shift. Patient was later observed walking into the community room and socializing with other patients. Patient took all medications without issue and requested something to help her sleep. Patient has not sleep prn so nurse would check back in an hour to see if she still needed something and would ask sales correspondence clerk. Patient became very concerned about roommate since she has a sitting and was worried something was wrong with her, Patient had to be reassured she was okay. Nurse checked on patient hour later to find her sleeping without difficulty. S/I, H/I: Pt denies A/VH: +AH Sleep: See sleep assessment ADL's: Independent, showered today. Group attendance: Yes Were meds taken: Yes Any med S/E: None noted or reported. Mental Status Exam Appearance: Heavy set, dark matthew women dressed in personal clothing Eye contact: Good. Behavior: Restless, hypomanic though mostly pleasant and cooperative. Speech: Pressured Mood: social, anxious Affect: Animated Thought process: Mildly disorganized Thought Content: worried about roommate Cognition: A/O X 3 Insight: Poor Judgment: Poor Interventions PRN's used: Therapeutic interventions: 1:1 assessment, establishment of rapport, therapeutic conversation, active listening, medication administration/education/monitoring, encouragement to attend groups, encouragement of personal hygiene, provided distraction, redirection, positive reinforcement, and Q 15 minute safety checks. Restraints/seclusion/emergency medication: None Justification of Continued Inpatient Treatment: Pt is in need of crisis interruption with medication management and monitoring in a safe and therapeutic environment until stable.
[2021-10-14] MEDS: acetaminophen 325mg tablet PO PRN (05:46)
[2021-10-14] MEDS: nystatin 15 GM powder TP SCH ×2 (07:35→20:47)
[2021-10-14] MEDS: QUEtiapine 25mg tablet PO PRN (07:51)
[2021-10-14] MEDS: propranolol 10mg tablet PO PRN (07:51)
[2021-10-14 08:00] VITALS: BP 143/94
[2021-10-14 09:02] LABS: HEMOGLOBIN A1C 6.6 % (4.5-6.2)
[2021-10-14 09:04] LABS: CHOL/HDL RATIO 2.5 (0.00-4.99); CHOLESTEROL 140 MG/DL (0-200); HDL CHOLESTEROL 56 MG/DL (35-60); LDL CHOLESTEROL 74 MG/DL (50-100); TRIGLYCERIDES 79 MG/DL (20-135)
--- NOTE | 2021-10-14 14:38 | NUR ---
Nursing Progress Note: Legal hold: 5150 Client on voluntary/involuntary status for GD/DTS Report received from nurse Yamileth Pineda RN with use of SBAR. Why are they here: Per 5150: Elisa has decompensated wandering, experiencing command auditory hallucinations, and engaging in activities with extreme disregard to personal safety. Unable to safety plan with family. She has a Hx of Schizoaffective D/O, Bipolar. Assessment What has happened this shift: Pt was up before breakfast. Pt was restless and hyperverbal. Pt was medicated with PRN Seroquel 25 mg and propranolol 10 mg with good effect. Pt allowed Nystatin powder to be applied to her pannus fold. Pt is A/O X 4. Pt denied depression, SI/HI/AH/VH. Pt states that she is better and feeling ready to go home. Pt's Hgb A1c came back slightly elevated at 6.6. Her diet was changed to carb controlled. S/I, H/I: Pt denies A/VH: Pt denies Sleep: Pt slept 7.75 last night per noc shift report. ADL's: Independent Group attendance: Yes Were meds taken: Yes Any med S/E: None noted or reported. Mental Status Exam Appearance: Heavy set, dark skinned woman with long dark highlighted hair pulled back in a ponytail dressed in personal clothing. Eye contact: Good. Behavior: Pleasant, cooperative, somewhat restless and hyperverbal. Speech: Pressured. Mood: "Better," some intermittent anxiety. Affect: Animated Thought process: Mildly disorganized Thought Content: She is feeling ready to go home. Cognition: A/O X 4 Insight: Poor Judgment: Fair Interventions PRN's used: Propranolol, Seroquel Therapeutic interventions: 1:1 assessment, establishment of rapport, therapeutic conversation, active listening, medication administration/education/monitoring, encouragement to attend groups, encouragement of personal hygiene, provided distraction, redirection, positive reinforcement, and Q 15 minute safety checks. Restraints/seclusion/emergency medication: None Justification of Continued Inpatient Treatment: Pt is in need of crisis interruption with medication management and monitoring in a safe and therapeutic environment until stable.
[2021-10-14 19:00] VITALS: BP 159/92
[2021-10-14] MEDS: lamoTRIgine 100mg tablet PO SCH (20:47)
[2021-10-14] MEDS: quetiapine 100mg tablet PO SCH (20:47)
--- NOTE | 2021-10-15 02:24 | NUR ---
Nursing Progress Note: Legal hold: 5150 Client on voluntary/involuntary status for GD/DTS Report received from Darrion OROURKE with use of SBAR. Why are they here: Per 5150: Elisa has decompensated wandering, experiencing command auditory hallucinations, and engaging in activities with extreme disregard to personal safety. Unable to safety plan with family. She has a Hx of Schizoaffective D/O, Bipolar. Assessment What has happened this shift: Pt received in the dinning room watching tv. Pt occasionally paced the hallway and spent some time in the rec room socializing with peers and watching tv. Pt cooperative and agreeable to an assessment and took her scheduled medications. Nystatin applied to her pannus and groin. Pt states Im not suicidal but I do get suicidal when I think of a specific male family member because he made something of himself and we are opposites. Pt denies H/I but says she does have auditory hallucinations that she didnt want to talk about any further and denies VH. Although pt says that she is doing much better overall. The pt is now sleeping. S/I, H/I: Pt denies A/VH: Pt denies VH, admits to AH that seem to be getting better Sleep: will tally at the end of shift ADL's: Independent Group attendance: Yes Were meds taken: Yes Any med S/E: None noted or reported. Mental Status Exam Appearance: Heavy set, dark skinned woman with long dark highlighted hair pulled back in a ponytail dressed in personal clothing. Eye contact: Good. Behavior: Pleasant, cooperative, somewhat restless and hyperverbal. Speech: Pressured. Mood: "Better," some intermittent anxiety. Affect: Animated Thought process: Mildly disorganized Thought Content: She is feeling ready to go home. Cognition: A/O X 4 Insight: Poor Judgment: Fair Interventions PRN's used: none Therapeutic interventions: 1:1 assessment, establishment of rapport, therapeutic conversation, active listening, medication administration/education/monitoring, encouragement to attend groups, encouragement of personal hygiene, provided distraction, redirection, positive reinforcement, and Q 15 minute safety checks. Restraints/seclusion/emergency medication: None Justification of Continued Inpatient Treatment: Pt is in need of crisis interruption with medication management and monitoring in a safe and therapeutic environment until stable.
[2021-10-15] MEDS: acetaminophen 325mg tablet PO PRN (05:48)
[2021-10-15 07:28] VITALS: BP 113/73
[2021-10-15] MEDS: nystatin 15 GM powder TP SCH ×2 (11:47→20:04)
--- NOTE | 2021-10-15 17:21 | NUR ---
Nursing Progress Note: Legal hold: 5150 Client on voluntary/involuntary status for GD/DTS Report received from SHARAD Akers with use of SBAR. Why are they here: Per 5150: Elisa has decompensated wandering, experiencing command auditory hallucinations, and engaging in activities with extreme disregard to personal safety. Unable to safety plan with family. She has a History of Schizoaffective D/O, Bipolar. Assessment What has happened this shift: Patient awoke at approximately 0740. Patient rested in bed until ambulating to the Community Room for breakfast. Patient spoke to some peers during breakfast, then returned to her room and slept x2 hours. Patient showered and Nystatin Powder applied below her pannus and the uppermost areas of her bilateral thighs where light red rash was seen. Patient then requested we plug in her ankle bracelet that is on her right ankle to recharge the battery for approximately 40 minutes. Oracle Applications Developer returned to patients locker in the OMNICE Room. Patient returned to bed again until lunch had arrived. Patient ate her lunch in the Community Room. Patient then slept the afternoon and woke up for snack time then fell back asleep. Patient resumed sleeping in her bed until approximately 1630. S/I, H/I: Denies A/VH: Denies Sleep: hours ADL's: Independent Group attendance: No Group Meeting Held Today. Were meds taken: Yes, without hesitation. Any med S/E: None noted or reported. Mental Status Exam Appearance: Large woman with dark hair, dressed in personal clothing. Eye contact: Good. Behavior: Pleasant & Cooperative Speech: Regular Rate/Rhythm. Mood: Social with others. Affect: Animated. Thought process: Mildly Disorganized. Thought Content: Meeting own needs. Cognition: A/O X 3 Insight: Poor Judgment: Fair Interventions PRN's used: none Therapeutic interventions: 1:1 assessment, establishment of rapport, therapeutic conversation, active listening, medication administration/education/monitoring, encouragement to attend groups, encouragement of personal hygiene, provided distraction, redirection, positive reinforcement, and Q 15 minute safety checks. Restraints/seclusion/emergency medication: None Justification of Continued Inpatient Treatment: Pt is in need of crisis interruption with medication management and monitoring in a safe and therapeutic environment until stable.
[2021-10-15] MEDS: quetiapine 100mg tablet PO SCH (20:04)
[2021-10-15] MEDS: lamoTRIgine 100mg tablet PO SCH (20:04)
[2021-10-15] MEDS: lamoTRIgine 25mg tablet PO SCH (20:04)
[2021-10-15 20:39] VITALS: BP 108/71
--- NOTE | 2021-10-16 00:43 | NUR ---
Nursing Progress Note: Legal hold: 5150 Client on voluntary/involuntary status for GD/DTS Report received from SAHARA Garcia with use of SBAR. Why are they here: Per 5150: Elisa has decompensated wandering, experiencing command auditory hallucinations, and engaging in activities with extreme disregard to personal safety. Unable to safety plan with family. She has a Hx of Schizoaffective D/O, Bipolar. Assessment What has happened this shift: Patient received laying in bed on right side, in no apparent distress. Appeared somewhat disheveled, and wanted all of her night time meds "right now. I'm ready for bed." Informed patient that her meds will be given at scheduled time, and she complied. Cooperative and agreeable to an assessment and took her scheduled medications later without resistance. Got slightly agitated when production line assembler informed her that since her current hold is expiring later tonight, she might be placed on a 5250 hold after. Patient verbalized that she has been looking forward to going home. production line assembler affirmed that there will be a hearing where she can express her thoughts and patient understood and been calm since. Nystatin applied to her pannus and groin. Patient last seen appearing to be asleep on her left side. S/I, H/I: Denies A/VH: Denies Sleep: will tally at the end of shift ADL's: Independent Group attendance: N/A Were meds taken: Yes Any med S/E: None noted or reported. Mental Status Exam Appearance: Obese, casually dressed, a bit unkempt woman due to body odor, with long dark highlighted hair pulled back in a messy ponytail. Eye contact: Good. Behavior: Cooperative, somewhat restless and hyperverbal. Speech: Clear Mood: Anxious Affect: Full range Thought process: Goal directed Thought Content: ready to go home. Cognition: A/O X 4 Insight: Poor Judgment: Fair Interventions PRN's used: none Therapeutic interventions: 1:1 assessment, establishment of rapport, therapeutic conversation, active listening, medication administration/education/monitoring, encouragement to interact/attend groups, encouragement of personal hygiene, provided distraction, redirection, positive reinforcement, and Q15 minute safety checks. Restraints/seclusion/emergency medication: None Justification of Continued Inpatient Treatment: Patient is in need of crisis interruption with medication management and monitoring in a safe and therapeutic environment until stable for discharge.
[2021-10-16 07:45] VITALS: BP 126/70
[2021-10-16] MEDS: nystatin 15 GM powder TP SCH ×2 (08:00→20:00)
--- NOTE | 2021-10-16 14:02 | NUR ---
Initial: Pt admit DX schizoaffective d/o, meth abuse, and auditory hallucinations on 5150 hold per EMR. PO mostly ~100% avg carb controlled diet meeting needs. Noted pt A1C 6.6% this admit w/ no hx DM last A1C 6.1% 11/2019 per EMR. Pt followed at the [facility] per PA note; RD left message w/ [facility] RD to determine further DM hx. Pt also has no home DM meds per clinical pharmacist. Initial Glu WNL though last labs 10/11 per EMR. Pt would not be appropriate for education IF new DM this admit per physician given current diagnosis. LBM 10/16. Will continue to monitor for further nutrition intervention needs. Rec: 1. continue carb controlled diet 2. bowel care per rx 3. multivitamin/mineral given hx gastric bypass if physician agreeable 4. weekly wts 5. IF new DM this admit; DM ed deferred as pt not appropriate at this time Addendum: 10/16/21 at [address] Amended: Links added.
--- NOTE | 2021-10-16 17:07 | NUR ---
Nursing Progress Note: Legal hold: 5150 Client on voluntary/involuntary status for GD/DTS Report received from SHARAD Monahan with use of SBAR. Why are they here: Per 5150: Elisa has decompensated wandering, experiencing command auditory hallucinations, and engaging in activities with extreme disregard to personal safety. Unable to safety plan with family. She has a History of Schizoaffective D/O, Bipolar. Assessment What has happened this shift: Received patient at approximately 7:25, when she woke up from sleeping in her room. Patient in the TV Room watching TV. Patient went to the Community to eat breakfast then returned to her bed to take a nap. Patient was talking to her mother on the phone at approximately 0930, when her voice could be heard very loudly yelling in the hallway. Went to speak with patient, and met her yelling over the phone to her mom right outside the Nurses Station, and asked patient if she could take the cordless telephone to her room to discuss the issues she was talking loudly to her about, and the patient walked away towards her room, then came back up to me and yelled I am not going to my room. Again, informed the patient if she would return to her room and speak to her mom there, and the patient again stated No. Approximately 10 minutes later the patient returned to me and informed me I wasnt yelling at you. Informed the patient I understood that she was not yelling at me, but told her that as loud as she was speaking to her mother on the phone, was too loud to be tolerated while so many others were in the hallway. Patient laid down on her bed and rested. Again, at approximately 1235, the patient could be overheard from her room, talking to her mom loudly. Patient was still loud, which bothered the patient in Bed A, and Bed A removed herself from the room. Patient spent the afternoon in the TV Room impersonating artists by singing their songs to other patients. S/I, H/I: Denies A/VH: Denies Sleep: 8.50 hours of sleep ADL's: Independent Group attendance: No Group Meeting Held Today. Were meds taken: Yes, without hesitation. Any med S/E: None noted or reported. Mental Status Exam Appearance: Large woman with dark hair, dressed in personal clothing. Eye contact: Good. Behavior: Pleasant & Cooperative Speech: Regular Rate/Rhythm. Mood: Social with others. Affect: Animated. Thought process: Mildly Disorganized. Thought Content: Meeting own needs. Cognition: A/O X 3 Insight: Poor Judgment: Fair Interventions PRN's used: none Therapeutic interventions: 1:1 assessment, establishment of rapport, therapeutic conversation, active listening, medication administration/education/monitoring, encouragement to attend groups, encouragement of personal hygiene, provided distraction, redirection, positive reinforcement, and Q 15 minute safety checks. Restraints/seclusion/emergency medication: None Justification of Continued Inpatient Treatment: Pt is in need of crisis interruption with medication management and monitoring in a safe and therapeutic environment until stable.
[2021-10-16 19:33] VITALS: BP 125/85
[2021-10-16] MEDS: quetiapine 100mg tablet PO SCH (20:07)
[2021-10-16] MEDS: lamoTRIgine 25mg tablet PO SCH (20:07)
[2021-10-16] MEDS: lamoTRIgine 100mg tablet PO SCH (20:07)
[2021-10-16] MEDS: QUEtiapine 25mg tablet PO PRN (21:14)
--- NOTE | 2021-10-17 01:40 | NUR ---
Nursing Progress Note: Legal hold: 5150 Client on voluntary/involuntary status for GD/DTS Report received from SHARAD Little with use of SBAR. Why are they here: Per 5150: Elisa has decompensated wandering, experiencing command auditory hallucinations, and engaging in activities with extreme disregard to personal safety. Unable to safety plan with family. She has a History of Schizoaffective D/O, Bipolar. Assessment What has happened this shift: Pt up on unit at start of shift. Pt said she would like to go home but the Doctor wants to keep her a few more days to see how her meds are working. Pt seemed agreeable to this plan. Pt ate snack in group room then went to rec room. She started singing, laughing and talking loudly. Her speech became pressured and rapid. After given HS meds began to calm down and went to bed and went to sleep. S/I, H/I: Denies A/VH: Pt says she hears voices that tell her what to do in a helpful way. Sleep: 8.50 hours of sleep ADL's: Independent Group attendance: NA Were meds taken: Yes, Any med S/E: None noted or reported. Mental Status Exam Appearance: Large woman with dark hair, dressed in personal clothing. Eye contact: Good. Behavior: Pleasant & Cooperative Speech: At times loud and rapid. Mood: Hypo manic Affect: Animated. Thought process: Disorganized. Thought Content: Meeting own needs. Cognition: A/O X 3 Insight: Poor Judgment: Fair Interventions PRN's used: Seroquel. Therapeutic interventions: 1:1 assessment, establishment of rapport, therapeutic conversation, active listening, medication administration/education/monitoring, encouragement to attend groups, encouragement of personal hygiene, provided distraction, redirection, positive reinforcement, and Q 15 minute safety checks. Restraints/seclusion/emergency medication: None Justification of Continued Inpatient Treatment: Pt is in need of crisis interruption with medication management and monitoring in a safe and therapeutic environment until stable.
[2021-10-17 07:46] VITALS: BP 105/78
[2021-10-17] MEDS: QUEtiapine 25mg tablet PO PRN ×2 (08:03→13:27)
[2021-10-17] MEDS: PALIPERIDONE 3 MG TAB.ER.24 PO SCH (08:03)
[2021-10-17] MEDS: propranolol 10mg tablet PO PRN (08:04)
[2021-10-17] MEDS: nystatin 15 GM powder TP SCH ×2 (08:04→20:02)
--- NOTE | 2021-10-17 09:16 | NUR ---
CM Presenting Issues: Pt's 5150 & admitted due to concerns associated w/DTS & GD. Interventions: Clinician met w/pt and introduced self, provided informed consent (confidentiality & limits of confidentiality) provided education re status of her Hold. Clinician informed pt of clinician's role in her hospital stay. MSE: TP- circumstantial TC-focused on d/c, denies SI/HI/AH/some paranoiia noted but re-directable Mood-irritated Affect-anxious Speech- slightly pressured BXS-cooperative Insight-guarded Judgement-impaired Plan: Clinician to continue to monitor and engage pt in dcp activities when appropriate. Daiana Farooq LCSW Addendum: 10/18/21 at 1429 by Daiana Farooq SS Amended: Links added.
--- NOTE | 2021-10-17 13:13 | NUR ---
F/u 10/17: RD contacted by Bonita Alvarez RD via TC. Kim MOORE reports pt only prior hx pre-diabetes and confirmed takes no DM meds at home w/ main dietary strategy to reduce sugary beverages consumption. RD notified RN of current A1C 6.6% this admit w/ no DM hx and recommends Glu checks if MD agreeable as last on 10/11 per EMR. Rec: 1. continue carb controlled diet 2. bowel care per rx 3. multivitamin/mineral given hx gastric bypass if physician agreeable 4. weekly wts 5. Pt made aware of DM onset this admit per physician discretion prior to discharge; A1C 6.6% only hx pre-diabetes Addendum: 10/17/21 at [address] Amended: Links added.
--- NOTE | 2021-10-17 13:52 | NUR ---
Nursing Progress Note: Legal hold: 5250 Client on voluntary/involuntary status for GD/DTS Report received from nurse Kathy OROURKE with use of SBAR. Why are they here: Per 5150: Elisa has decompensated wandering, experiencing command auditory hallucinations, and engaging in activities with extreme disregard to personal safety. Unable to safety plan with family. She has a Hx of Schizoaffective D/O, Bipolar. Assessment What has happened this shift: Pt was up for breakfast. Pt was restless, somewhat irritable and hyperverbal. Pt was cooperative with her routine PO Paliperidone. Pt was given PRN propranolol 20 mg @ 0804 for increased anxiety with good effect. Pt denied depression, SI/HI/AH/VH today. Pt did admit to feeling some anxiety mostly because she is anxious to get home. Pt requested PRN Seroquel 25 mg PO after lunch, it was given at 1327. Pt's mom brought her in some clothes today. Pt plans on showering this afternoon then changing into her clothes from home. Pt is cooperative with Nystatin Powder application to pannus. No unsafe behaviors noted. Pt's ankle monitor battery was charged. S/I, H/I: Pt denies A/VH: Pt denies Sleep: Pt slept 9.5 last night per noc shift report. ADL's: Independent Group attendance: No Were meds taken: Yes Any med S/E: None noted or reported. Mental Status Exam Appearance: Heavy set, dark skinned woman with long dark highlighted hair pulled back in a ponytail dressed in green unit scrubs. Eye contact: Good. Behavior: Cooperative, restless and hyperverbal at times. Speech: Pressured. Mood: Anxious Affect: Animated Thought process: Racing thoughts, appears internally preoccupied at times. Thought Content: She is anxious to get home. Cognition: A/O X 4 Insight: Poor Judgment: Fair Interventions PRN's used: Propranolol, Seroquel Therapeutic interventions: 1:1 assessment, therapeutic conversation, active listening, medication administration/education/monitoring, encouragement to attend groups, encouragement of personal hygiene, provided distraction, redirection, positive reinforcement, and Q 15 minute safety checks. Restraints/seclusion/emergency medication: None Justification of Continued Inpatient Treatment: Pt is in need of crisis interruption with medication management and monitoring in a safe and therapeutic environment until stable.
[2021-10-17 19:41] VITALS: BP 100/56
[2021-10-17] MEDS: lamoTRIgine 25mg tablet PO SCH (20:02)
[2021-10-17] MEDS: lamoTRIgine 100mg tablet PO SCH (20:02)
[2021-10-17] MEDS: quetiapine 100mg tablet PO SCH (20:03)
--- NOTE | 2021-10-17 22:09 | NUR ---
Nursing Progress Note: Legal hold: 5250 Client on voluntary/involuntary status for GD/DTS Report received from nurse Radha OROURKE with use of SBAR. Why are they here: Per 5150: Elisa has decompensated wandering, experiencing command auditory hallucinations, and engaging in activities with extreme disregard to personal safety. Unable to safety plan with family. She has a Hx of Schizoaffective D/O, Bipolar. Assessment What has happened this shift: Pt was in bed sleeping at change of shift. Pt got up for snack and took HS meds. pt is calm cooperative and spent time in the rec room watching tv before going to bed. S/I, H/I: Pt denies A/VH: Pt denies Sleep: see sleep hours ADL's: Independent Group attendance: No Were meds taken: Yes Any med S/E: None noted or reported. Mental Status Exam Appearance: Pt adequately groomed and dressed appropriately in personal clothing Eye contact: Good. Behavior: Cooperative, calm Speech: soft Mood: Anxious Affect: congruent Thought process:appears internally preoccupied at times. Thought Content: She is anxious to get home. Cognition: A/O X 4 Insight: Poor Judgment: Fair Interventions PRN's used:none Therapeutic interventions: 1:1 assessment, therapeutic conversation, active listening, medication administration/education/monitoring, encouragement to attend groups, encouragement of personal hygiene, provided distraction, redirection, positive reinforcement, and Q 15 minute safety checks. Restraints/seclusion/emergency medication: None Justification of Continued Inpatient Treatment: Pt is in need of crisis interruption with medication management and monitoring in a safe and therapeutic environment until stable.
[2021-10-18 07:36] VITALS: BP 113/47
[2021-10-18] MEDS: nystatin 15 GM powder TP SCH (07:40)
[2021-10-18] MEDS: PALIPERIDONE 3 MG TAB.ER.24 PO SCH (07:40)
[2021-10-18] MEDS: acetaminophen 325mg tablet PO PRN (13:31)
--- NOTE | 2021-10-18 14:29 | NUR ---
DCP Presenting Issues: Per Attending PA, pt is ready for d/c and needs support w/dcp activities. Interventions: Clinician had t/c w/Bonita Alvarez and confirmed f/u appointment w/[facility]. Met w/pt and discussed needs upon d/c, pt reports that her mother will pick her up, and she uses [facility] on [address]. Clinician provided pt w/info to her f/u appointment @ Bonita Alvarez, PA informed. Plan: Pt to d/c mother to picking machine operator helper. Daiana Farooq LCSW Addendum: 10/18/21 at 1432 by Daiana Farooq SS Amended: Links added.
[2021-10-18] MEDS ORDERED: QUET100T34 PO (14:43)
[2021-10-18] MEDS ORDERED: LAMO150T6 PO (14:43)
[2021-10-18] MEDS ORDERED: NYSPWD TP (14:43)
--- NOTE | 2021-10-18 16:21 | NUR ---
DISCHARGE NOTE: Pt discharged home at 1620. Pt ambulated off the unit accompanied by PCT, all belongings returned including ankle monitor sales order administrator. Pt expressed understanding of discharge instructions including Rx's and follow up appointment.
== END 2021-10-18 16:20 | disposition home or self-care (01) | DRG 885 ==
LOC: ER 18:06 → ED HOLD 10-12 16:30 → ADULT MH 10-13 02:29
PROVIDERS: ADMIT Psychiatry & Neurology Psychiatry; ATTEND Psychiatry & Neurology Psychiatry
DX: F25.9 Schizoaffective disorder, unspecified (principal); F15.20 Other stimulant dependence, uncomplicated; F23 Brief psychotic disorder; Z68.42 Body mass index [BMI] 45.0-49.9, adult; F32.A Depression, unspecified; Z20.822 Contact with and (suspected) exposure to COVID-19; F41.9 Anxiety disorder, unspecified; E66.01 Morbid (severe) obesity due to excess calories; K21.9 Gastro-esophageal reflux disease without esophagitis; D50.9 Iron deficiency anemia, unspecified; Z65.3 Problems related to other legal circumstances; Z98.84 Bariatric surgery status; Z83.3 Family history of diabetes mellitus; Z81.8 Family history of other mental and behavioral disorders; Z90.49 Acquired absence of other specified parts of digestive tract; Z98.51 Tubal ligation status; Z91.030 Bee allergy status; Z79.899 Other long term (current) drug therapy
CPT/HCPCS: 36415; 80053; 80061; 80305; 80320; 81001; 83036; 84443; 85008; 85025; 87081; 87635; 99285; C9803; G0378; Q0163

== ENCOUNTER 2022-01-08 10:07 | Inpatient (IN) | payer MEDICARE, MEDICAID ==
[~2022-01-08] VITALS: Ht 165.1 cm; Wt 114.1 kg
[~2022-01-08 10:07] MED LIST changes: -LAMO100T2 PO; +LAMO150T6 PO; -LUMA42CA PO; +NYSPWD TP; +QUET100T34 PO
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
[2022-01-11] MEDS ORDERED: OLANZapine 5mg rapidly disint. tablet PO ONE (23:50)
[2022-01-11] MEDS: LORazepam 1 MG tablet PO PRN (23:54)
[2022-01-12] MEDS ORDERED: loperamide 2mg capsule PO PRN (02:15)
[2022-01-12] MEDS ORDERED: acetaminophen 325mg tablet PO PRN (02:15)
[2022-01-12] MEDS ORDERED: magnesium hydroxide 30ml (MOM) UD suspension PO PRN (02:15)
[2022-01-12] MEDS ORDERED: NICOTINE POLACRILEX 2 MG LOZENGE BC PRN (02:15)
[2022-01-12] MEDS ORDERED: mag hydrox/Alum hydrox/simeth 30ml oral suspension PO PRN (02:15)
[2022-01-12] MEDS: lamoTRIgine 100mg tablet PO SCH (07:56)
[2022-01-12] MEDS: nystatin 15 GM powder TP SCH ×2 (07:56→20:10)
[2022-01-12] MEDS: nicotine 21mg patch - 24 hr TD SCH (07:56)
[2022-01-12 08:00] VITALS: BP 140/90
[2022-01-12] MEDS: LORazepam 1 MG tablet PO PRN ×2 (09:36→22:34)
[2022-01-12] MEDS: QUEtiapine 25mg tablet PO PRN (14:29)
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
[2022-01-12] MEDS: ascorbic acid 500mg tablet PO SCH (16:46)
[2022-01-12] MEDS: acetaminophen 325mg tablet PO PRN (16:47)
[2022-01-12 19:00] VITALS: BP 125/74
[2022-01-12] MEDS: FERROUS SULFATE 142 MG TABLET.ER (45mg elemental) PO SCH (20:07)
[2022-01-12] MEDS: quetiapine 100mg tablet PO PRN (20:07)
[2022-01-13] MEDS: QUEtiapine 25mg tablet PO PRN ×2 (00:42→20:16)
[2022-01-13] MEDS: propranolol 10mg tablet PO PRN ×2 (00:42→20:16)
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
[2022-01-13] MEDS: acetaminophen 325mg tablet PO PRN ×2 (04:27→17:15)
[2022-01-13 07:00] VITALS: BP 114/85
[2022-01-13] MEDS: FERROUS SULFATE 142 MG TABLET.ER (45mg elemental) PO SCH ×2 (07:25→20:15)
[2022-01-13] MEDS: lamoTRIgine 100mg tablet PO SCH (07:25)
[2022-01-13] MEDS: nicotine 21mg patch - 24 hr TD SCH (07:25)
[2022-01-13] MEDS: LORazepam 1 MG tablet PO PRN ×2 (07:26→21:03)
[2022-01-13] MEDS: nystatin 15 GM powder TP SCH ×2 (07:26→20:19)
[2022-01-13] MEDS: ascorbic acid 500mg tablet PO SCH ×2 (07:26→17:12)
[2022-01-13 07:49] LABS: CHOL/HDL RATIO 2.5 (0.00-4.99); CHOLESTEROL 126 MG/DL (0-200); HDL CHOLESTEROL 51 MG/DL (35-60); LDL CHOLESTEROL 60 MG/DL (50-100); TRIGLYCERIDES 44 MG/DL (20-135)
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
[2022-01-13] MEDS ORDERED: paliperidone palmitate inj 234 MG/1.5 ML SYRINGE IM ONE (18:55)
[2022-01-13 19:00] VITALS: BP 142/87
[2022-01-13] MEDS: quetiapine 100mg tablet PO PRN ×2 (20:16→21:03)
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
[2022-01-14] MEDS: LORazepam 1 MG tablet PO PRN (07:27)
[2022-01-14] MEDS: nicotine 21mg patch - 24 hr TD SCH (07:27)
[2022-01-14] MEDS: lamoTRIgine 100mg tablet PO SCH (07:27)
[2022-01-14] MEDS: ascorbic acid 500mg tablet PO SCH ×2 (07:27→16:40)
[2022-01-14 08:00] VITALS: BP 120/72
[2022-01-14] MEDS: nystatin 15 GM powder TP SCH ×2 (08:00→20:39)
[2022-01-14] MEDS: FERROUS SULFATE 142 MG TABLET.ER (45mg elemental) PO SCH ×2 (08:00→20:51)
[2022-01-14] MEDS ORDERED: OLANZapine 5mg rapidly disint. tablet PO ONE (12:30)
[2022-01-14] MEDS ORDERED: OLANZapine 5mg rapidly disint. tablet PO PRN (12:30)
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
[2022-01-14 19:00] VITALS: BP 110/82
[2022-01-14] MEDS: OLANZapine 5mg rapidly disint. tablet PO SCH (20:51)
[2022-01-14] MEDS: propranolol 10mg tablet PO PRN (20:51)
[2022-01-14] MEDS: lamoTRIgine 25mg tablet PO SCH (20:52)
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
[2022-01-15] MEDS: FERROUS SULFATE 142 MG TABLET.ER (45mg elemental) PO SCH ×2 (07:52→20:11)
[2022-01-15] MEDS: ascorbic acid 500mg tablet PO SCH ×2 (07:52→17:37)
[2022-01-15] MEDS: lamoTRIgine 100mg tablet PO SCH (07:52)
[2022-01-15] MEDS: nicotine 21mg patch - 24 hr TD SCH (07:56)
[2022-01-15 08:00] VITALS: BP 126/74
[2022-01-15] MEDS: nystatin 15 GM powder TP SCH ×2 (08:00→20:12)
--- NOTE | 2022-01-15 10:59 | NUR ---
Initial: Pt admitted w/ schizoaffective disorder per EMR. Currently on Carb control diet w/ 100% intake of meals and participating in snacks per documentation; meeting needs at this time. Recommend liberalizing to Regular diet given no hx of DM in EMR and A1c 6. LBM 01/12. Will continue to monitor. Recs: 1. Liberalize to Regular diet; No DM hx in EMR and A1c 6 2. Bowel care PRN 3. Weekly wts Addendum: 01/15/22 at [address] Amended: Links added.
--- NOTE | 2022-01-15 14:38 | NUR ---
[address] [place]
[2022-01-15] MEDS: acetaminophen 325mg tablet PO PRN (15:52)
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
[2022-01-15 19:18] VITALS: BP 113/66
[2022-01-15] MEDS: lamoTRIgine 25mg tablet PO SCH (20:11)
[2022-01-15] MEDS: propranolol 10mg tablet PO PRN (20:11)
[2022-01-15] MEDS: OLANZapine 5mg rapidly disint. tablet PO SCH (20:11)
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
[2022-01-16 08:00] VITALS: BP 118/75
[2022-01-16] MEDS: nystatin 15 GM powder TP SCH ×2 (08:00→20:18)
[2022-01-16] MEDS: FERROUS SULFATE 142 MG TABLET.ER (45mg elemental) PO SCH ×2 (08:24→20:32)
[2022-01-16] MEDS: ascorbic acid 500mg tablet PO SCH ×2 (08:24→17:46)
[2022-01-16] MEDS: nicotine 21mg patch - 24 hr TD SCH (08:24)
[2022-01-16] MEDS: lamoTRIgine 100mg tablet PO SCH (08:24)
[2022-01-16] MEDS: acetaminophen 325mg tablet PO PRN (08:25)
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
[2022-01-16 19:14] VITALS: BP 96/59
[2022-01-16] MEDS: OLANZapine 5mg rapidly disint. tablet PO SCH (20:33)
[2022-01-16] MEDS: lamoTRIgine 25mg tablet PO SCH (20:33)
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
[2022-01-17 07:40] VITALS: BP 113/75
[2022-01-17] MEDS: nystatin 15 GM powder TP SCH ×2 (08:00→20:00)
[2022-01-17] MEDS: ascorbic acid 500mg tablet PO SCH ×2 (08:01→17:46)
[2022-01-17] MEDS: FERROUS SULFATE 142 MG TABLET.ER (45mg elemental) PO SCH ×2 (08:01→21:05)
[2022-01-17] MEDS: lamoTRIgine 100mg tablet PO SCH (08:01)
[2022-01-17] MEDS: nicotine 21mg patch - 24 hr TD SCH (08:04)
--- NOTE | 2022-01-17 17:44 | NUR ---
Nursing Progress Note: Problem: Pt BIB [facility] on a 5150 for GD/DTO. Pt has been become unmanageable at home, has extremely rapid speech and is making nonsensical statements. She has been damaging property (arrested twice in 24 hours) and threatened to kill her mom if she doesn't take her home. Pt has hx of schizoaffective, bipolar, and has an ankle monitor on. Pt stopped taking her medications and has been using meth. Problem today: 1.Pt. Had multiple verbal outbursts in the Rec Room. Pt. becomes agitated when she does not get food at expected times. Intervention: Medication given as ordered. Maintained a safe and supportive environment, administered scheduled medications. Provided active listening and positive encouragement, encouraged participation on the unit, provided redirection and clear boundaries. Pt. encouraged to shower. Nystop powder applied to pt.s pannus folds. Response: Patient is asleep in bed at start of shift. Pt. awoke and took all medications. Pt. ate breakfast and napped for approx.. 1 hr. Pt. awake and requesting to watch TV. Pt. received phone call from her mother and became agitaited. Pt. yelling and cursing at her mother on the phone. Pt. overheard saying, I forgive you for making me so mad I threatened you. Pt. threw her water pitcher on the floor. Pt. states, I get so mad I have to do things like that. RN attempted to verbally redirect pt., but pt. states, Please dont talk to me right now, I dont want to here it. Pt. was able to calm down eventually. Pt. watched TV in the Rec Room most of the day and was overheard swearing and complaining loudly about being unjustly held here. Pt. states, I just need to get the out of here. Pt. initially agreed to shower, but then refused, stating, Ill shower tonight. Plan: Patient continues to require crisis interruption and stabilization with medication management and monitoring in a safe and therapeutic environment.
[2022-01-17 19:34] VITALS: BP 116/70
[2022-01-17] MEDS: OLANZapine 5mg rapidly disint. tablet PO SCH (21:05)
[2022-01-17] MEDS: lamoTRIgine 25mg tablet PO SCH (21:05)
[2022-01-17] MEDS: propranolol 10mg tablet PO PRN (21:06)
--- NOTE | 2022-01-18 05:17 | NUR ---
Nursing Progress Note: Problem: Pt BIB [facility] on a 5150 for GD/DTO. Pt has been become unmanageable at home, has extremely rapid speech and is making nonsensical statements. She has been damaging property (arrested twice in 24 hours) and threatened to kill her mom if she doesn't take her home. Pt has hx of schizoaffective, bipolar, and has an ankle monitor on. Pt stopped taking her medications and has been using meth. Intervention: Medication given as ordered. Provided with a safe and therapeutic environment, clear communication, active listening and positive encouragement. Response: Patient is pleasant and cooperative with care; compliant with medication. PRN Propranolol provided. Patient appeared elevated this shift but no negative behaviors observed. She denies SI, HI, A/VH but appears preoccupied. Patient participated in HS snack and observed watching TV with peers prior to bed; observed sleeping and does not appear to be having difficulty. Plan: Patient continues to require crisis interruption and stabilization with medication management and monitoring in a safe and therapeutic environment.
[2022-01-18] MEDS: ascorbic acid 500mg tablet PO SCH ×2 (07:26→16:58)
[2022-01-18] MEDS: nicotine 21mg patch - 24 hr TD SCH ×2 (07:26→08:00)
[2022-01-18] MEDS: FERROUS SULFATE 142 MG TABLET.ER (45mg elemental) PO SCH ×2 (07:26→20:02)
[2022-01-18] MEDS: lamoTRIgine 100mg tablet PO SCH (07:27)
[2022-01-18] MEDS: nystatin 15 GM powder TP SCH ×2 (07:27→20:03)
[2022-01-18 08:14] VITALS: BP 121/47
[2022-01-18 08:15] VITALS: BP 121/77
[2022-01-18] MEDS ORDERED: paliperidone palmitate 156 mg/ml inj.**IM only IM ONE (15:10)
--- NOTE | 2022-01-18 16:20 | NUR ---
Nursing Progress Note: Eric Problem: Pt BIB [facility] on a 5150 for GD/DTO. Pt has been become unmanageable at home, has extremely rapid speech and is making nonsensical statements. She has been damaging property (arrested twice in 24 hours) and threatened to kill her mom if she doesn't take her home. Pt has hx of schizoaffective, bipolar, and has an ankle monitor on. Pt stopped taking her medications and has been using meth. Intervention: Medication given as ordered. Provided with a safe and therapeutic environment, clear communication, active listening and positive encouragement. Response: Patient is resting quietly in bed at the start of the shift. Cooperative with assessment and medication. Refuses nicotine patch stating she no longer needs them. D/Cd per pt request. Speech is disorganized at times but is generally clear when patient makes requests. Patient makes frequent delusional statements and is tangential. Naps off and on throughout the day and isolates to her room. Plan: Patient continues to require crisis interruption and stabilization with medication management and monitoring in a safe and therapeutic environment.
[2022-01-18 19:47] VITALS: BP 105/62
[2022-01-18] MEDS: OLANZapine 5mg rapidly disint. tablet PO SCH (20:01)
[2022-01-18] MEDS: divalproex sod 250mg ER (24-hour) tablet PO SCH (20:02)
[2022-01-18] MEDS: lamoTRIgine 25mg tablet PO SCH (20:02)
[2022-01-18] MEDS: propranolol 10mg tablet PO PRN (20:02)
--- NOTE | 2022-01-19 05:30 | NUR ---
Nursing Progress Note: Problem: Pt BIB [facility] on a 5150 for GD/DTO. Pt has been become unmanageable at home, has extremely rapid speech and is making nonsensical statements. She has been damaging property (arrested twice in 24 hours) and threatened to kill her mom if she doesn't take her home. Pt has hx of schizoaffective, bipolar, and has an ankle monitor on. Pt stopped taking her medications and has been using meth. Intervention: Medication given as ordered. Provided with a safe and therapeutic environment, clear communication, active listening and positive encouragement. Response: Patient is pleasant and cooperative with care; compliant with medication. PRN Propranolol provided. She denies SI, HI, A/VH. She spent the majority of this shift in her room. She participated in HS snack and promptly returned to her bed; observed sleeping and does not appear to be having difficulty. Plan: Patient continues to require crisis interruption and stabilization with medication management and monitoring in a safe and therapeutic environment.
[2022-01-19] MEDS: lamoTRIgine 100mg tablet PO SCH (07:30)
[2022-01-19] MEDS: ascorbic acid 500mg tablet PO SCH ×2 (07:30→17:49)
[2022-01-19] MEDS: FERROUS SULFATE 142 MG TABLET.ER (45mg elemental) PO SCH ×2 (07:30→20:46)
[2022-01-19] MEDS: nystatin 15 GM powder TP SCH ×2 (07:30→20:46)
[2022-01-19 08:26] VITALS: BP 92/56
--- NOTE | 2022-01-19 15:29 | NUR ---
Nursing Progress Note: Eric Problem: Pt BIB [facility] on a 5150 for GD/DTO. Pt has been become unmanageable at home, has extremely rapid speech and is making nonsensical statements. She has been damaging property (arrested twice in 24 hours) and threatened to kill her mom if she doesn't take her home. Pt has hx of schizoaffective, bipolar, and has an ankle monitor on. Pt stopped taking her medications and has been using meth. Intervention: Medication given as ordered. Provided with a safe and therapeutic environment, clear communication, active listening and positive encouragement. Response: Patient is resting quietly in bed at the start of the shift. Cooperative with medication and assessment. Patient denies any suicidal/ homicidal thoughts. Appears to be responding to internal stimuli AEB talking to herself. Speech is clear but inappropriate and she makes frequent delusional or nonsensical statements. Mood is labile and she is easily irritated but also easily redirected. Patient is unable to formulate a plan for food, clothing and group home. Plan: Patient continues to require crisis interruption and stabilization with medication management and monitoring in a safe and therapeutic environment.
[2022-01-19 19:50] VITALS: BP 119/68
[2022-01-19] MEDS: OLANZapine 5mg rapidly disint. tablet PO SCH (20:46)
[2022-01-19] MEDS: divalproex sod 250mg ER (24-hour) tablet PO SCH (20:46)
[2022-01-19] MEDS: propranolol 10mg tablet PO PRN (20:46)
[2022-01-19] MEDS: lamoTRIgine 25mg tablet PO SCH (20:47)
--- NOTE | 2022-01-20 05:26 | NUR ---
Nursing Progress Note: Problem: Pt BIB [facility] on a 5150 for GD/DTO. Pt has been become unmanageable at home, has extremely rapid speech and is making nonsensical statements. She has been damaging property (arrested twice in 24 hours) and threatened to kill her mom if she doesn't take her home. Pt has hx of schizoaffective, bipolar, and has an ankle monitor on. Pt stopped taking her medications and has been using meth. Intervention: Medication given as ordered. Provided with a safe and therapeutic environment, clear communication, active listening and positive encouragement. Response: Patient is pleasant and cooperative with care; compliant with medication. PRN Propranolol provided. She continues to deny MH Sx and no apparent delusions expressed this shift. She is observed participating in HS snack prior to bed; observed sleeping and does not appear to be having difficulty. Plan: Patient continues to require crisis interruption and stabilization with medication management and monitoring in a safe and therapeutic environment.
[2022-01-20] MEDS: ascorbic acid 500mg tablet PO SCH (07:26)
[2022-01-20] MEDS: FERROUS SULFATE 142 MG TABLET.ER (45mg elemental) PO SCH (07:26)
[2022-01-20] MEDS: nystatin 15 GM powder TP SCH (07:26)
[2022-01-20] MEDS: lamoTRIgine 100mg tablet PO SCH (07:27)
[2022-01-20 08:00] VITALS: BP 103/47
[2022-01-20] MEDS ORDERED: QUET100T34 PO (10:56)
[2022-01-20] MEDS ORDERED: PROP10TA10 PO (10:56)
[2022-01-20] MEDS ORDERED: LAMO100T2 PO (10:56)
[2022-01-20] MEDS ORDERED: DIVA250T8 PO (10:56)
[2022-01-20] MEDS ORDERED: FERR142T13 PO (10:56)
[2022-01-20] MEDS ORDERED: NICO-907 BC (10:56)
--- NOTE | 2022-01-20 12:17 | NUR ---
Discharge Note: Paperwork and follow up reviewed with the patient who is agreeable to discharge to self care. No s/sx acute distress. Escorted off the unit with all of her belongings by staff at 12:15 and is picked up by family.
== END 2022-01-20 12:15 | disposition home or self-care (01) | DRG 885 ==
LOC: ER 10:07 → ADULT MH 01-11 16:00
PROVIDERS: ADMIT Psychiatry & Neurology Psychiatry; ATTEND Psychiatry & Neurology Psychiatry
DX: F25.0 Schizoaffective disorder, bipolar type (principal); Z68.41 Body mass index [BMI] 40.0-44.9, adult; F41.9 Anxiety disorder, unspecified; D50.9 Iron deficiency anemia, unspecified; E66.01 Morbid (severe) obesity due to excess calories; F32.A Depression, unspecified; E87.6 Hypokalemia; F17.210 Nicotine dependence, cigarettes, uncomplicated; F15.159 Other stimulant abuse with stimulant-induced psychotic disorder, unspecified; Z20.822 Contact with and (suspected) exposure to COVID-19; Z83.3 Family history of diabetes mellitus; Z98.84 Bariatric surgery status; Z91.030 Bee allergy status; Z90.49 Acquired absence of other specified parts of digestive tract; Z98.51 Tubal ligation status; Z81.8 Family history of other mental and behavioral disorders; Z71.6 Tobacco abuse counseling; Z79.899 Other long term (current) drug therapy
CPT/HCPCS: 36415; 74176; 80053; 80061; 80305; 80320; 81025; 83036; 84443; 85008; 85025; 87081; 99284; J1200; J2060; J2426; J3490; Q0163

== ENCOUNTER 2022-01-10 13:00 | Emergency (ER) | payer MEDICARE, MEDICAID ==
[~2022-01-10] VITALS: Ht 165.1 cm; Wt 125.8 kg
[2022-01-10] MEDS ORDERED: diphenhydrAMINE 50 mg/ml inj ONE (14:07)
[2022-01-10] MEDS ORDERED: OLANZapine **IM** 10 mg inj. IM ONE ×2 (14:08→14:10)
[2022-01-10] MEDS ORDERED: LORazepam 2 mg/ml vial IM ONE (14:10)
[2022-01-10] MEDS ORDERED: diphenhydrAMINE 50 mg/ml inj IM ONE (14:10)
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
[2022-01-10 15:14] LABS: BASOPHILS % (AUTO) 0.5 % (0-1); EOSINOPHILS # (AUTO) 0.1 X10'3 (0-0.9); EOSINOPHILS % (AUTO) 1.1 % (0-6); HEMOGLOBIN 7.9 g/dl (12.0-16.0); LYMPHOCYTES # (AUTO) 1.2 X10'3 (1.1-4.8); LYMPHOCYTES % (AUTO) 21.8 % (21-51); MEAN CORPUSCULAR HEMOGLOBIN 19.5 PG (27.0-31.0); MEAN CORPUSCULAR HGB CONC 30.4 g/dL (33.0-36.5); MEAN PLATELET VOLUME 7.6 FL (7.4-10.4); MONOCYTES # (AUTO) 0.6 X10'3 (0-0.9); MONOCYTES % (AUTO) 10.3 % (2-12); NEUTROPHILS # (AUTO) 3.7 X10'3 (1.8-7.7); NEUTROPHILS % (AUTO) 66.3 % (42-75); PLATELET COUNT 341 X10'3 (140-440); RED BLOOD COUNT 4.06 X10'6 (4.20-5.60); RED CELL DISTRIBUTION WIDTH 20.9 % (11.5-14.5); WHITE BLOOD COUNT 5.6 X10'3 (4.5-11.0)
--- NOTE | 2022-01-10 16:00 | NUR ---
Pt continues to rest on her left side. She appears to be sleeping. RR even and unlabored.
[2022-01-10 16:05] LABS: ALANINE AMINOTRANSFERASE 53 U/L (12-78); ALBUMIN 3.4 G/DL (3.4-5.0); ALBUMIN/GLOBULIN RATIO 0.9 (1.1-1.5); ALKALINE PHOSPHATASE 172 IU/L (46-116); ANION GAP 8 (8-16); ASPARTATE AMINO TRANSFERASE 37 U/L (10-37); BILIRUBIN,TOTAL 0.5 MG/DL (0.1-1.0); BLOOD UREA NITROGEN 19 MG/DL (7-18); BUN/CREATININE RATIO 26.4 (6.6-38.0); CALCIUM 9.2 MG/DL (8.5-10.1); CHLORIDE 107 MMOL/L (99-107); CREATININE 0.72 MG/DL (0.40-0.90); GLUCOSE 98 MG/DL (70-104); POTASSIUM 3.1 MMOL/L (3.5-5.1); SODIUM 141 MMOL/L (135-145); TOTAL CARBON DIOXIDE 25.9 MMOL/L (24-32); TOTAL PROTEIN 7.3 G/DL (6.4-8.2); eGFR 89 ML/MIN
[2022-01-10 16:14] LABS: ETHANOL < 0.010 GM/DL (0.0-0.010)
[2022-01-10 16:40] LABS: PLATELET ESTIMATE NORMAL
[2022-01-10 16:41] LABS: ANISOCYTOSIS 3+; HYPOCHROMASIA 1+; MICROCYTOSIS 2+; SCHISTOCYTES FEW
--- NOTE | 2022-01-10 18:15 | NUR ---
Pt continues to sleep. She slept through dinner. RR even and unlabored.
--- NOTE | 2022-01-10 18:55 | NUR ---
The patient is sedated. She briefly opened her eyes when she was told that her dinner was here but did not respond and did not eat her dinner. She is not awake enough to give a urine sample at this time.
--- NOTE | 2022-01-10 19:28 | NUR ---
Patient up to the bathroom and given a urine cup and requested she give a urine sample.
--- NOTE | 2022-01-10 20:07 | NUR ---
The patient took the urine cup into the bathroom but did not follow through with instructions to give a urine sample and is now back asleep
--- NOTE | 2022-01-10 22:22 | NUR ---
The patient appears to be sleeping
--- NOTE | 2022-01-10 23:41 | NUR ---
The patient is resting on her bed
--- NOTE | 2022-01-11 02:04 | NUR ---
The patient appears to be sleeping
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
[2022-01-11 02:31] LABS: URINE HCG NEGATIVE (NEG)
[2022-01-11 02:42] LABS: URINE AMPHETAMINE SCREEN POSITIVE (Neg); URINE BARBITUATE SCREEN NEGATIVE (Neg); URINE BENZODIAZEPINES SCREEN NEGATIVE (Neg); URINE CANNABINOID SCREEN NEGATIVE (Neg); URINE COCAINE SCREEN NEGATIVE (Neg); URINE METHADONE SCREEN NEGATIVE (Neg); URINE OPIATE SCREEN NEGATIVE (Neg); URINE PHENCYCLIDINE SCREEN NEGATIVE (Neg)
--- NOTE | 2022-01-11 03:05 | NUR ---
Packet sent to [facility]
--- NOTE | 2022-01-11 04:23 | NUR ---
The patient appears to be sleeping
--- NOTE | 2022-01-11 05:12 | NUR ---
The patient is awake and disorganized. She is talking nonstop in a raspy voice and saying she needs a cat as a service animal. She is wanting to go home. She was reminded that she is on a 5150 hold.
[2022-01-11] MEDS ORDERED: OLANZapine 2.5MG tablet PO ONE (05:25)
[2022-01-11] MEDS ORDERED: potassium Cl 20 mEq SR tablet PO ONE (05:25)
--- NOTE | 2022-01-11 05:52 | NUR ---
The patient awakened for vital signs and became difficult to redirect. She is intrussive and hyperverbal. She is making grandiose and delusional statements about being an jose d and then a doctor. Dr. Dickey made aware and orders received.
[2022-01-11] MEDS ORDERED: OLANZapine 5mg rapidly disint. tablet PO ONE (06:25)
--- NOTE | 2022-01-11 06:52 | NUR ---
Pt continues to be up pacing, banging on the martinez, and talking nonstop. SHARAD Vigil received orders for Zyprexa 10mg PO. She administered the medication prior to leaving shift. Pt continues pacing, mumbling and occasionally hitting the martinez, counter tops or bedside table.
--- NOTE | 2022-01-11 08:04 | NUR ---
TECH TOOK REPEAT BP ON PT, PT BP 157/94, HR 96
--- NOTE | 2022-01-11 08:12 | NUR ---
Pt attempted to sit in a chair, missed the chair landing on her buttocks on the floor.
--- NOTE | 2022-01-11 08:53 | NUR ---
Pt has been up pacing the unit, yelling and hitting the counters and martinez. She is now checking out the curtains covering the exit doors. Pt redirected back to her bed. Pt cooportive.
[2022-01-11] MEDS ORDERED: LORazepam 1 MG tablet PO ONE ×2 (09:00→17:35)
[2022-01-11] MEDS ORDERED: diphenhydrAMINE 25mg capsule PO ONE (09:00)
--- NOTE | 2022-01-11 09:13 | NUR ---
Pt given PO Ativan 2mg and Benadryl 50mg. Pt is resting on her bed. Occasionally will hit her hand the bed rails talking loudly with her eyes closed.
--- NOTE | 2022-01-11 09:20 | NUR ---
Pt placed in 4pt restraints after leaving the unit and being brought back on the unit by security, this nurse and ER staff. Pt is yelling and cursing at staff.
--- NOTE | 2022-01-11 09:30 | NUR ---
Offered water pt refused.
--- NOTE | 2022-01-11 09:45 | NUR ---
Pt given water and offered bedpan. Pt continues to yell.
--- NOTE | 2022-01-11 10:00 | NUR ---
Pt given a drink of water. Refuses bedpan.
--- NOTE | 2022-01-11 10:15 | NUR ---
Pt has been screaming, yelling, making threats and is demanding since being placed in restraints. She will not allow staff to talk to her. She just yells louder, becoming more and more demanding. Unable to follow directions. She is unable to commit to a safety plan.
--- NOTE | 2022-01-11 10:15 | NUR ---
Pt given a drink of water.
--- NOTE | 2022-01-11 10:35 | NUR ---
Pt refusing a drink or bedpan. Continues to yell and threaten staff intermittantly.
--- NOTE | 2022-01-11 11:10 | NUR ---
Removed each restraint; checked circulation then readjusted each restraint.
--- NOTE | 2022-01-11 11:33 | NUR ---
Pt continues to kick and hit the bed rails and foot of the bed. She continues to yell and make threats. She is unable to focus or make committ to not AWOL from the unit. Speech is loud, pressured and rapid.
--- NOTE | 2022-01-11 11:50 | NUR ---
Pt continues to yell intrmittantly. She now has L ankle restraint off.
[2022-01-11 12:02] VITALS: BP 131/95
--- NOTE | 2022-01-11 12:05 | NUR ---
Pt sat up to the bedside table with her lunch tray. She now has R hand and L ankle restraint off. She continues to yell and scream. She is unable to follow directions. Unable to follow any instructions. She will not be quiet so she can hear staff directions.
--- NOTE | 2022-01-11 12:51 | NUR ---
Pt threw the bedpan refuses to use it. Offered to put it back under her.
--- NOTE | 2022-01-11 13:25 | NUR ---
Restraints removed. Pt is resting on her bed. She continues to pace and occasionally will hit the counter and look out the curtains blocking the Exit doors. She is easily redirected most of the time.
--- NOTE | 2022-01-11 15:01 | NUR ---
Pt sitting on her bed drinking coffee. She is talking to herself. She remains confused, delusional and grandiose. Pt is on a 5150 awaiting placement for treatment of Bipolar DO.
--- NOTE | 2022-01-11 16:11 | NUR ---
Pt up pacing and occasionally hitting things and making threats. Pt redirected multiple times back to her room.
--- NOTE | 2022-01-11 17:35 | NUR ---
Security called. called. Received orders for Zyprexa Zydis 10mg and Ativan 2mg PO. Security stand-by for now. Pt threatening security and staff.
[2022-01-11] MEDS ORDERED: OLANZapine 5mg rapidly disint. tablet PO SCH (18:00)
--- NOTE | 2022-01-11 18:25 | NUR ---
Pt resting quietly. Occasionally she will yell out while sleeping or get up and walk around, dump her water out, turn lights on and off and yell at staff.
--- NOTE | 2022-01-11 19:04 | NUR ---
The patient is disorganized but clearly starting to slow down after receiving medications. She has been accepted up at [facility] and will be transferred around 9PM
--- NOTE | 2022-01-11 20:40 | NUR ---
The patient appears to be sleeping.
== END 2022-01-10 18:35 | disposition home or self-care (01) ==
LOC: ER 13:01 → EDBD 13:01 → MERGE 13:01 → ER 18:35
DX: R45.1 Restlessness and agitation (principal); F20.9 Schizophrenia, unspecified; F31.9 Bipolar disorder, unspecified; Z91.030 Bee allergy status; Z79.899 Other long term (current) drug therapy; Z20.822 Contact with and (suspected) exposure to COVID-19
CPT/HCPCS: 36415; 80053; 80305; 80320; 81025; 84443; 85008; 85025; 96372; 99285; J1200; J2060; J3490; Q0163

== ENCOUNTER 2022-03-22 19:17 | Emergency (ER) | payer MEDICARE, MEDICAID ==
[~2022-03-22] VITALS: Ht 180.3 cm; Wt 113.6 kg
[~2022-03-22 19:17] MED LIST changes: +DIVA250T8 PO; +FERR142T13 PO; +LAMO100T2 PO; -LAMO150T6 PO; +NICO-907 BC; -QUET25TA PO
[2022-03-22 19:18] VITALS: BP 122/71
== END 2022-03-22 20:36 | disposition home or self-care (01) ==
LOC: ER 19:18
DX: F31.9 Bipolar disorder, unspecified (principal); F20.9 Schizophrenia, unspecified; Z91.030 Bee allergy status; F15.10 Other stimulant abuse, uncomplicated
CPT/HCPCS: 99283

== ENCOUNTER 2022-09-21 11:14 | Inpatient (IN) | payer MEDICARE, MEDICAID ==
[~2022-09-21] VITALS: Ht 165.1 cm; Wt 96.8 kg
[2022-09-21 11:48] LABS: BASOPHILS # (AUTO) 0.1 X10'3 (0-0.2); BASOPHILS % (AUTO) 1.1 % (0-1); EOSINOPHILS % (AUTO) 0.6 % (0-6); HEMATOCRIT 28.3 % (35.0-45.0); HEMOGLOBIN 8.4 g/dl (12.0-16.0); LYMPHOCYTES # (AUTO) 1.4 X10'3 (1.1-4.8); LYMPHOCYTES % (AUTO) 19.8 % (21-51); MEAN CORPUSCULAR HEMOGLOBIN 19.6 PG (27.0-31.0); MEAN CORPUSCULAR HGB CONC 29.9 g/dL (33.0-36.5); MEAN CORPUSCULAR VOLUME 65.7 FL (78-98); MONOCYTES # (AUTO) 0.5 X10'3 (0-0.9); NEUTROPHILS # (AUTO) 5.1 X10'3 (1.8-7.7); NEUTROPHILS % (AUTO) 71.5 % (42-75); PLATELET COUNT 330 X10'3 (140-440); RED CELL DISTRIBUTION WIDTH 18.8 % (11.5-14.5); WHITE BLOOD COUNT 7.1 X10'3 (4.5-11.0)
[2022-09-21] MEDS ORDERED: haloperidol lactate 5mg/ml inj IM ONE (11:55)
[2022-09-21] MEDS ORDERED: LORazepam 2 mg/ml vial IM ONE (11:55)
[2022-09-21 12:03] LABS: ANISOCYTOSIS 2+; MICROCYTOSIS 2+; PLATELET ESTIMATE NORMAL; POLYCHROMASIA FEW; TARGET CELLS FEW
[2022-09-21 12:09] LABS: ALANINE AMINOTRANSFERASE 26 U/L (12-78); ALBUMIN 3.6 G/DL (3.4-5.0); ALBUMIN/GLOBULIN RATIO 0.9 (1.1-1.5); ALKALINE PHOSPHATASE 147 IU/L (46-116); ANION GAP 9 (8-16); ASPARTATE AMINO TRANSFERASE 24 U/L (10-37); BILIRUBIN,TOTAL 0.4 MG/DL (0.1-1.0); BLOOD UREA NITROGEN 18 MG/DL (7-18); BUN/CREATININE RATIO 25.4 (6.6-38.0); CALCIUM 9.2 MG/DL (8.5-10.1); CHLORIDE 106 MMOL/L (99-107); CREATININE 0.71 MG/DL (0.40-0.90); GLUCOSE 107 MG/DL (70-104); POTASSIUM 3.5 MMOL/L (3.5-5.1); SODIUM 140 MMOL/L (135-145); TOTAL CARBON DIOXIDE 24.6 MMOL/L (24-32); TOTAL PROTEIN 7.8 G/DL (6.4-8.2); eGFR 90 ML/MIN
[2022-09-21 12:24] LABS: ETHANOL < 0.010 GM/DL (0.0-0.010)
[2022-09-21 13:23] LABS: CLARITY,URINE SLIGHTLY CLOUDY (Clear); COLOR,URINE YELLOW (Yellow); GLUCOSE, URINE NEGATIVE (Neg); KETONES,URINE NEGATIVE (Neg); LEUKOCYTE ESTERASE ,URINE SMALL (Neg); NITRITES, URINE NEGATIVE (Neg); OCCULT BLOOD,URINE NEGATIVE (Neg); PH,URINE 5.5 (4.8-8.0); PROTEIN,URINE NEGATIVE (Neg); UA COLLECTION TYPE CLN CATCH MIDSTREAM; UROBILINOGEN,URINE 0.2 E.U/dL (0.2-1.0)
[2022-09-21 13:24] LABS: URINE HCG NEGATIVE (NEG)
--- NOTE | 2022-09-21 13:25 | NUR ---
Patient ambulatory, steady gait from Main E.D. to E.D. OF bed 26. No distress observed.
[2022-09-21 13:31] LABS: BACTERIA,URINE 1+ /HPF (Neg); MUCUS STRANDS MODERATE /LPF (Neg); RBC,URINE 0-2 /HPF (0-2); SQUAMOUS EPITHELIAL CELL,UR MODERATE /LPF (FEW); TRICHOMONAS,URINE FEW /HPF (NEGATIVE)
[2022-09-21 13:54] LABS: URINE BARBITUATE SCREEN NEGATIVE (Neg); URINE METHADONE SCREEN NEGATIVE (Neg)
[2022-09-21 13:55] LABS: URINE AMPHETAMINE SCREEN POSITIVE (Neg); URINE BENZODIAZEPINES SCREEN NEGATIVE (Neg); URINE CANNABINOID SCREEN NEGATIVE (Neg); URINE COCAINE SCREEN NEGATIVE (Neg); URINE OPIATE SCREEN NEGATIVE (Neg); URINE PHENCYCLIDINE SCREEN NEGATIVE (Neg)
--- NOTE | 2022-09-21 15:19 | NUR ---
Patient continues to sleep. No distres observed. Continue to monitor.
[2022-09-21] MEDS ORDERED: PROP10TA10 PO (17:19)
[2022-09-21] MEDS ORDERED: LAMO100T2 PO (17:19)
[2022-09-21] MEDS ORDERED: OLAN5TAB5 PO (17:27)
[2022-09-21] MEDS ORDERED: QUET-1 PO (17:28)
--- NOTE | 2022-09-21 17:29 | NUR ---
pt BP done twice, 1st BP 101/52, 2ND 105/53.
--- NOTE | 2022-09-21 17:30 | NUR ---
Patient is upset that she was awoken for blood pressure cuff and cussed at staff. Patient calmed down and allowed the staff to take BP. Continue to monitor.
--- NOTE | 2022-09-21 18:11 | NUR ---
Patient eating dinner. No distress observed. RN spoke with patient as she was eating dinner. Patient knows the month "September?". Patient knows she is in the hospital but does not know the name. Patient is oriented to self. RN asked if she heard voices or if she is seeing strange things that other people can't see. Patient had laid back down by this time. Patient responded "Both." Patient would not elaborate. Continue to monitor.
--- NOTE | 2022-09-21 20:07 | NUR ---
Patient sleeping. No distress observed. Continue to monitor.
[2022-09-21] MEDS: quetiapine 100mg tablet PO SCH (20:46)
[2022-09-21] MEDS: OLANZapine 5mg rapidly disint. tablet PO SCH (20:46)
[2022-09-21] MEDS: lamoTRIgine 100mg tablet PO SCH (20:47)
--- NOTE | 2022-09-21 22:21 | NUR ---
Patient continues to sleep. RN gave patient a sandwich for snack. Patient awoke and ate sandwich. Continue to monitor.
--- NOTE | 2022-09-22 00:11 | NUR ---
Patient continues to sleep. No distress observed. Continue to monitor.
--- NOTE | 2022-09-22 02:19 | NUR ---
Patient continues to sleep. No distress observed. Continue to monitor.
--- NOTE | 2022-09-22 04:22 | NUR ---
Patient sleeping. No distress observed. Continue to monitor.
--- NOTE | 2022-09-22 05:54 | NUR ---
Patient continues to sleep. No distress observed. Continue to monitor.
--- NOTE | 2022-09-22 06:00 | NUR ---
Patient to BR, steady gait. No distress observed. Continue to monitor.
--- NOTE | 2022-09-22 06:51 | NUR ---
Received Pt in bed sleeping w/o distress at this time.
[2022-09-22] MEDS: lamoTRIgine 100mg tablet PO SCH ×2 (08:00→20:21)
--- NOTE | 2022-09-22 09:07 | NUR ---
Pt remains sleeping at this time w/o distress.
--- NOTE | 2022-09-22 10:37 | NUR ---
Pt took AM med late after waking to use bathroom and returnrd to sleep.
--- NOTE | 2022-09-22 11:15 | NUR ---
Pt woke again to use bathroom and returned to sleep.
--- NOTE | 2022-09-22 13:45 | NUR ---
Pt ate some of her lunch and returned to sleeping. Pt talked to registration. Received call from [facility] office stating Pt has been accepted to [facility].
--- NOTE | 2022-09-22 14:50 | NUR ---
Nurse to nurse completed with [facility] charge nurse and Pt was brought up to [facility] by [employer] and [facility].
[2022-09-22] MEDS ORDERED: loperamide 2mg capsule PO PRN (15:20)
[2022-09-22] MEDS ORDERED: mag hydrox/Alum hydrox/simeth 30ml oral suspension PO PRN (15:20)
[2022-09-22] MEDS ORDERED: magnesium hydroxide 30ml (MOM) UD suspension PO PRN (15:20)
[2022-09-22] MEDS ORDERED: NICOTINE POLACRILEX 2 MG LOZENGE BC PRN (15:20)
[2022-09-22] MEDS ORDERED: acetaminophen 325mg tablet PO PRN (15:20)
--- NOTE | 2022-09-22 15:33 | NUR ---
Admit note: Pt admitted to [place] [facility] on a 5150 for DTS from our ER at 1445. Pt was kicking street signs and yelling. Pt was attempting to enter other peoples residence. Pt unable to articulate where she was or is going, making nonsensical statements. Pt has history of schizoaffective disorder.
[2022-09-22] MEDS: propranolol 10mg tablet PO PRN (20:21)
[2022-09-22] MEDS: OLANZapine 5mg rapidly disint. tablet PO SCH (20:21)
[2022-09-22] MEDS: quetiapine 100mg tablet PO SCH (20:21)
--- NOTE | 2022-09-23 03:53 | NUR ---
Nursing Progress Note: Problem: Pt admitted to [place] for [facility] on a 5150 for DTS from our ER at 1445. Pt was kicking street signs and yelling. Pt was attempting to enter other peoples residence. Pt unable to articulate where she was or is going, making nonsensical statements. Pt has history of schizoaffective disorder. Interventions: 1:1 assessment, provided clear and simple instructions, medication administration/education/monitoring, behavior monitoring and intervention as needed, maintained a safe and supportive environment, and Q15 minute safety checks. Response: Patient is impulsive and resistive to care; a little hesitant with medication but complied. PRN Propranolol provided for increased anxiety. She denies SI, HI, A/VH but appears internally preoccupied. Patient is guarded and responds minimally and at times has a delay in her response as if she isn't going to answer. Patient is isolative to her room. She was provided HS snack; observed sleeping and does not appear to be having difficulty. Plan: Patient requires interruption of current crisis and medication adjustments in safe and therapeutic environment.
[2022-09-23 08:00] VITALS: BP 125/77
[2022-09-23] MEDS: nicotine 21mg patch - 24 hr TD SCH (08:00)
[2022-09-23] MEDS: lamoTRIgine 100mg tablet PO SCH (08:15)
[2022-09-23 08:29] LABS: CHOL/HDL RATIO 2.4 (0.00-4.99); CHOLESTEROL 133 MG/DL (0-200); HDL CHOLESTEROL 56 MG/DL (35-60); LDL CHOLESTEROL 67 MG/DL (50-100); TRIGLYCERIDES 61 MG/DL (20-135)
[2022-09-23 08:36] LABS: HEMOGLOBIN A1C 6.4 % (4.5-6.2)
[2022-09-23] MEDS: acetaminophen 325mg tablet PO PRN (12:29)
[2022-09-23] MEDS ORDERED: OLANZapine 5mg rapidly disint. tablet PO PRN (13:45)
--- NOTE | 2022-09-23 15:37 | NUR ---
Nursing Progress Note: Problem: Pt admitted to [place] for [facility] on a 5150 for DTS from our ER at 1445. Pt was kicking street signs and yelling. Pt was attempting to enter other peoples residence. Pt unable to articulate where she was or is going, making nonsensical statements. Pt has history of schizoaffective disorder. Interventions: 1:1 assessment, provided clear and simple instructions, medication administration/education/monitoring, behavior monitoring and intervention as needed, maintained a safe and supportive environment, and Q15 minute safety checks. Response: Received Pt in bed sleeping w/o distress at the beginning of the shift. Pt woke and was cooperative with vitals and returned to sleep. Pt did not eat breakfast and slept most of the morning. She did wake briefly to take AM med but did not want to wear the nicotine patch. Pt overall irritable and resistive to care and attempts to establish rapport. Pt states I have a home to go to, I just want to go home. Pt c/o lower back ache and received Tylenol with good effect. She was isolative and napped in afternoon. She denies SI/HI at this time. Pt met with and med changes were made. Plan: Patient requires interruption of current crisis and medication adjustments in safe and therapeutic environment.
--- NOTE | 2022-09-23 17:28 | NUR ---
Pt had positive MRSA swb. Educate on handwashing Q shift. Addendum: 09/23/22 at 1730 by Oliver Matt RN Amended: Links added.
[2022-09-23 19:00] VITALS: BP 116/66
[2022-09-23] MEDS ORDERED: lamoTRIgine 100mg tablet PO SCH (20:00)
[2022-09-23] MEDS: propranolol 10mg tablet PO PRN (21:22)
[2022-09-23] MEDS: OLANZapine 5mg rapidly disint. tablet PO SCH (21:22)
[2022-09-24 03:15] VITALS: BP 116/66
--- NOTE | 2022-09-24 04:54 | NUR ---
Nursing Progress Note: Problem: Pt admitted to [place] [facility] on a 5150 for DTS from our ER at 1445. Pt was kicking street signs and yelling. Pt was attempting to enter other peoples residence. Pt unable to articulate where she was or is going, making nonsensical statements. Pt has history of schizoaffective disorder. Interventions: 1:1 assessment, provided clear and simple instructions, medication administration/education/monitoring, behavior monitoring and intervention as needed, maintained a safe and supportive environment, and Q15 minute safety checks. Response: Patient is irritable but cooperative with care this shift; compliant with medication. Patient appeared to be anxious; PRN Propranolol provided. Patient denies SI, HI, A/VH; no apparent delusions expressed. However, she is guarded and responds as minimal as possible. She continues to isolate to her room. Patient provided HS snack prior to bed; observed sleeping and does not appear to be having difficulty. Plan: Patient requires interruption of current crisis and medication adjustments in safe and therapeutic environment.
--- NOTE | 2022-09-24 07:29 | NUR ---
Noted pt A1C 6.4% w/ no prior hx DM Glu 107mg/dl on admit eating regular diet per EMR. Addendum: 09/24/22 at [address] Amended: Links added.
[2022-09-24 07:30] VITALS: BP 132/77
[2022-09-24] MEDS: nicotine 21mg patch - 24 hr TD SCH (08:00)
[2022-09-24] MEDS ORDERED: lamoTRIgine 25mg tablet PO SCH (08:55)
[2022-09-24] MEDS: lamoTRIgine 25mg tablet PO SCH ×2 (09:30→20:42)
[2022-09-24] MEDS: acetaminophen 325mg tablet PO PRN ×2 (13:57→20:43)
--- NOTE | 2022-09-24 14:39 | NUR ---
Elisa reported she lives with her Aunt, Yu Andrade. She does not know her phone number. Disposal Operator was unable to find an accurate phone number for Yu (searched Elisa's chart and the internet). Confirmed that Elisa's mother, whom she was living with in July. Hopefully Elisa will recall her aunt's phone number as she clears. DREW De Los Santos
--- NOTE | 2022-09-24 16:42 | NUR ---
Nursing Progress Note: Problem: Pt admitted to [place] for [facility] on a 5150 for DTS from our ER at 1445. Pt was kicking street signs and yelling. Pt was attempting to enter other peoples residence. Pt unable to articulate where she was or is going, making nonsensical statements. Pt has history of schizoaffective disorder. Interventions: 1:1 assessment, provided clear and simple instructions, medication administration/education/monitoring, behavior monitoring and intervention as needed, maintained a safe and supportive environment, and Q15 minute safety checks. Response: RN received pt. asleep in bed at start of shift. Pt. awoke for breakfast and took AM Lamictal. Pt. went back to sleep. Pt. isolated to her room most of the day, coming out only for meals and snacks. 1:1 done at bedside, pt. is delusional states she is not supposed to be here, but that the police picked her up and threw her in their car and brought her here. Pt. is irritated with this RNs questions. Pt. denies all psych symptoms. Pt. c/o generalized body aches rated 7/10 and received Tylenol 650mg po with good effect. Pt. had x1 episode of emesis and requested saltine crackers. Pt. denied any further episodes of emesis. Plan: Patient requires interruption of current crisis and medication adjustments in safe and therapeutic environment.
[2022-09-24] MEDS: ondansetron 4mg rapidly disintigrating tab PO PRN (18:15)
[2022-09-24 19:00] VITALS: BP 109/62
[2022-09-24] MEDS: propranolol 10mg tablet PO PRN (20:42)
[2022-09-24] MEDS: OLANZapine 5mg rapidly disint. tablet PO SCH (20:42)
--- NOTE | 2022-09-25 03:05 | NUR ---
Nursing Progress Note: Problem: Pt admitted to [place] for [facility] on a 5150 for DTS from our ER at 1445. Pt was kicking street signs and yelling. Pt was attempting to enter other peoples residence. Pt unable to articulate where she was or is going, making nonsensical statements. Pt has history of schizoaffective disorder. Interventions: 1:1 assessment, provided clear and simple instructions, medication administration/education/monitoring, behavior monitoring and intervention as needed, maintained a safe and supportive environment, and Q15 minute safety checks. Response: Patient is irritable at times; offers short responses. She is compliant with medication. PRN Propranolol provided for anxiousness and PRN Tylenol provided for c/o back pain. She denies SI, HI, A/VH; appears internally preoccupied. She was briefly watching TV with peers in the recreation room and provided HS snack prior to bed. Patient observed having some difficulty getting to sleep; PRN Zyprexa provided. Plan: Patient requires interruption of current crisis and medication adjustments in safe and therapeutic environment.
[2022-09-25 07:30] VITALS: BP 137/74
[2022-09-25] MEDS: nicotine 21mg patch - 24 hr TD SCH (08:00)
[2022-09-25] MEDS: lamoTRIgine 25mg tablet PO SCH ×2 (08:36→20:51)
[2022-09-25] MEDS: ondansetron 4mg rapidly disintigrating tab PO PRN ×2 (08:37→18:05)
--- NOTE | 2022-09-25 16:23 | NUR ---
Nursing Progress Note: Problem: Pt admitted to [place] for [facility] on a 5150 for DTS from our ER at 1445. Pt was kicking street signs and yelling. Pt was attempting to enter other peoples residence. Pt unable to articulate where she was or is going, making nonsensical statements. Pt has history of schizoaffective disorder. Interventions: 1:1 assessment, provided clear and simple instructions, medication administration/education/monitoring, behavior monitoring and intervention as needed, maintained a safe and supportive environment, and Q15 minute safety checks. Response: RN received pt. asleep in bed at start of shift. Pt. refused breakfast but took AM medications. Pt. c/o nausea and given Zofran 4mg with good effect. Pt. ate a mid-morning snack of crackers and chicken broth and juice. 1:1 done at bedside, pt. denies SI/HI, A/V hallucinations. Pt. does not know the date. Pt. is delusional about how she got here, insisting that the only reason she is here is because the police took her by force. Pt. stops talking abruptly, becoming agitated. Pt. isolated to her room all day, found napping intermittently. Pt. had no episodes of emesis today. Plan: Patient requires interruption of current crisis and medication adjustments in safe and therapeutic environment. Addendum: 09/25/22 at 1810 by Fidel Montanez RN PT. C/O HEADACHE 6/10 AND RECEIVED TYLENOL 650MG. PT. C/O NAUSEA AND RECEIVED ZOFRAN 4MG ODT.
[2022-09-25] MEDS: acetaminophen 325mg tablet PO PRN (18:06)
[2022-09-25 19:00] VITALS: BP 112/63
[2022-09-25] MEDS: propranolol 10mg tablet PO PRN (20:50)
[2022-09-25] MEDS: OLANZapine 5mg rapidly disint. tablet PO SCH (20:51)
--- NOTE | 2022-09-26 03:40 | NUR ---
Nursing Progress Note: Problem: Pt admitted to [place] for [facility] on a 5150 for DTS from our ER at 1445. Pt was kicking street signs and yelling. Pt was attempting to enter other peoples residence. Pt unable to articulate where she was or is going, making nonsensical statements. Pt has history of schizoaffective disorder. Interventions: 1:1 assessment, provided clear and simple instructions, medication administration/education/monitoring, behavior monitoring and intervention as needed, maintained a safe and supportive environment, and Q15 minute safety checks. Response: Patient is pleasant and cooperative with care; compliant with medication. PRN Propranolol provided for anxiety provided. She denies SI, HI, A/VH; no apparent delusions expressed. She continues to respond minimally and isolate to her room. No N/V reported this shift and patient reported normal (to her) BM 09/25. Patient provided HS snack prior to bed; observed sleeping and does not appear to be having difficulty. Plan: Patient requires interruption of current crisis and medication adjustments in safe and therapeutic environment.
[2022-09-26 07:30] VITALS: BP 92/71
[2022-09-26] MEDS: nicotine 21mg patch - 24 hr TD SCH (08:00)
[2022-09-26] MEDS: lamoTRIgine 25mg tablet PO SCH ×2 (08:25→19:54)
[2022-09-26] MEDS: ondansetron 4mg rapidly disintigrating tab PO PRN (08:27)
--- NOTE | 2022-09-26 17:34 | NUR ---
Nursing Progress Note: Problem: Pt admitted to [place] for [facility] on a 5150 for DTS from our ER at 1445. Pt was kicking street signs and yelling. Pt was attempting to enter other peoples residence. Pt unable to articulate where she was or is going, making nonsensical statements. Pt has history of schizoaffective disorder. Interventions: 1:1 assessment, provided clear and simple instructions, medication administration/education/monitoring, behavior monitoring and intervention as needed, maintained a safe and supportive environment, and Q15 minute safety checks. Response: RN received pt. asleep in bed at start of shift. Pt. refused breakfast but took AM medications. Pt. c/o nausea and given Zofran 4mg with good effect. Pt. ate a mid-morning snack of crackers and yogurt. 1:1 done at bedside, pt. denies SI/HI, A/V hallucinations. Pt. does not know the date, nor how she got here, states, I just know the police brought me here. Pt. is annoyed with RNs questions. Pt. encouraged to go to group but refused. Pt. ate lunch and dinner without any further bouts of nausea. Plan: Patient requires interruption of current crisis and medication adjustments in safe and therapeutic environment.
[2022-09-26] MEDS: propranolol 10mg tablet PO PRN (19:53)
[2022-09-26] MEDS: acetaminophen 325mg tablet PO PRN (19:54)
[2022-09-26] MEDS: OLANZapine 5mg rapidly disint. tablet PO SCH (19:54)
[2022-09-26 20:00] VITALS: BP 105/62
--- NOTE | 2022-09-27 05:18 | NUR ---
Nursing Progress Note: Problem: Pt admitted to [place] for [facility] on a 5150 for DTS from our ER at 1445. Pt was kicking street signs and yelling. Pt was attempting to enter other peoples residence. Pt unable to articulate where she was or is going, making nonsensical statements. Pt has history of schizoaffective disorder. Interventions: 1:1 assessment, provided clear and simple instructions, medication administration/education/monitoring, behavior monitoring and intervention as needed, maintained a safe and supportive environment, and Q15 minute safety checks. Response: Upon arrival to shift noted patient sleeping in bed. During 1:1 noted wearing green scrubs with poor grooming and malodorous. Patient thoughts were linear and speech was clear at this this time. Denies SI, HI, AH, VH. Gave great eye contact, was relaxed and compliant with HS meds. PRN Inderal and Tylenol. No angry outbursts this shift. Slept well. Will continue to monitor. Plan: Patient requires interruption of current crisis and medication adjustments in safe and therapeutic environment.
--- NOTE | 2022-09-27 05:32 | NUR ---
EMERGENCY CONTACT: JENNA HANKINS ("AUNT") [phone]
[2022-09-27 08:00] VITALS: BP_SYST 111; BP_SYST 125; BP_DIAS 64; BP_DIAS 79
[2022-09-27] MEDS: lamoTRIgine 25mg tablet PO SCH ×2 (08:09→20:26)
[2022-09-27] MEDS: nicotine 21mg patch - 24 hr TD SCH (08:14)
--- NOTE | 2022-09-27 08:44 | NUR ---
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 PO fluctuating ~41% avg meals w/ refusals though noted nausea 09/25 per MD note likely influenced intake. Pt does occasionally participate in snacks between meals per EMR. At this time likely just shy of minimum estimated protein needs and partially meeting estimated kcals needs. If current trends persist would benefit from ONS. LBM 09/26. Will monitor for further PO acceptance and nutrition intervention needs. Rec: 1. continue regular diet; encourage PO 2. monitor further PO trends for ONS needs 3. bowel care per rx 4. weekly wts Addendum: 09/27/22 at [address] Amended: Links added.
--- NOTE | 2022-09-27 14:07 | NUR ---
Spoke to Alicia Arreguin("Aunt") ph# [phone]. She provided the phone number for Elisa Nicholas's aunt whom she lives with. Left message for Yu requesting a call back (ph# [phone]). DREW De Los Santos
--- NOTE | 2022-09-27 16:34 | NUR ---
Nursing Progress Note: Problem : Pt admitted to [facility] for [facility] health on a 5150 for DTS from our ER at 1445. Pt was kicking street signs and yelling. Pt was attempting to enter other peoples residence. Pt unable to articulate where she was or is going, making nonsensical statements. Pt has history of schizoaffective disorder. Interventions : Introduced self and established rapport, maintained a safe and supportive environment, ensured contract for safety, provided clear and simple instructions, encouraged participation on the unit, and maintained Q 15min safety checks. Response : Received pt. sleeping in bed at the beginning of the shift, she was awoken to attend breakfast in the Group Room and afterwards retreated back to bed. Pt. presents as cooperative, fatigued, guarded, and withdrawn. 1:1 was completed at bedside, pt. is A&O X 3, however when questioned by this internal communications writer why she is here states, "I don't know." Pt then continues on to state, "I was just trying to get home from the police station and they brought me here." Pt. is guarded with conversation and responds minimally to direct questions. She denies all mental health s/s and appears to be minimizing. Pt. attended her mental health court hearing and her mental health hold was upheld. Plan : Pt. continues to require medication adjustments and a safe and supportive environment.
[2022-09-27 18:23] VITALS: BP 125/79
[2022-09-27] MEDS: propranolol 10mg tablet PO PRN (18:24)
[2022-09-27 20:00] VITALS: BP 125/79
[2022-09-27] MEDS: OLANZapine 5mg rapidly disint. tablet PO SCH (20:26)
[2022-09-27] MEDS: acetaminophen 325mg tablet PO PRN (23:49)
[2022-09-27] MEDS: traZODone 50mg tablet PO PRN (23:54)
--- NOTE | 2022-09-28 03:47 | NUR ---
Nursing Progress Note: Problem : Pt admitted to [place] for [facility] health on a 5150 for DTS from our ER at 1445. Pt was kicking street signs and yelling. Pt was attempting to enter other peoples residence. Pt unable to articulate where she was or is going, making nonsensical statements. Pt has history of schizoaffective disorder. Interventions : Maintained a safe and supportive environment, ensured contract for safety, provided clear and simple instructions, encouraged participation on the unit, obtained an order for PRN Trazodone r/t insomnia, and maintained Q 15min safety checks. Response : Pt. approached the nurse's station at the beginning of the shift requesting PRN Propranolol for anxiety, this medication was administered with effectiveness. When this service writer advisor questioned pt. regarding the cause for her anxiety she stated, "Just everything that's going on," and did not elaborate. Pt. continues to present as guarded with conversation and responds minimally to direct questions. She is more present on the unit this shift and sits up watching TV in the Group Room with others before retreating to bed. At approximately midnight, pt. came to the nurse's station reporting generalized body pain and insomnia. PRN Tylenol was administered and this service writer advisor obtained an order for PRN Trazodone from MARTY Campoverde, these medications were administered with effectiveness. Plan : Pt. continues to require medication adjustments and a safe and supportive environment.
[2022-09-28 08:00] VITALS: BP 109/67
[2022-09-28] MEDS: lamoTRIgine 25mg tablet PO SCH ×2 (08:14→20:38)
[2022-09-28] MEDS: nicotine 21mg patch - 24 hr TD SCH (08:14)
--- NOTE | 2022-09-28 16:46 | NUR ---
Nursing Progress Note: Problem: Pt admitted to [facility] for [facility] health on a 5150 for DTS from our ER at 1445. Pt was kicking street signs and yelling. Pt was attempting to enter other peoples residence. Pt unable to articulate where she was or is going, making nonsensical statements. Pt has history of schizoaffective disorder. Interventions: Introduced self and established rapport, maintained a safe and supportive environment, ensured contract for safety, provided clear and simple instructions, encouraged participation on the unit, and maintained Q 15min safety checks. Response: Patient asleep at shift change. She chose not to get up for breakfast, in order for her to sleep. Her tray was saved, so she could eat later. She was compliant with medications, before going back to bed. 1:1 at bedside leads to minimal responses about her situation. Patient is cooperative but guarded and withdrawn. She is A/Ox3, but doesnt respond to why shes here. Patient denies MH symptoms today. Plan: Pt. continues to require medication adjustments and a safe and supportive environment.
[2022-09-28 19:00] VITALS: BP 102/56
[2022-09-28] MEDS: propranolol 10mg tablet PO PRN (20:38)
[2022-09-28] MEDS: OLANZapine 5mg rapidly disint. tablet PO SCH (20:38)
--- NOTE | 2022-09-29 04:00 | NUR ---
Nursing Progress Note: Problem : Pt admitted to [facility] for [facility] health on a 5150 for DTS from our ER at 1445. Pt was kicking street signs and yelling. Pt was attempting to enter other peoples residence. Pt unable to articulate where she was or is going, making nonsensical statements. Pt has history of schizoaffective disorder. Interventions : Maintained a safe and supportive environment, ensured contract for safety, provided clear and simple instructions, encouraged participation on the unit, obtained an order for PRN Trazodone r/t insomnia, and maintained Q 15min safety checks. Response : Patient is pleasant and cooperative with care; compliant with medication. She reported no Nicotine patch. Appeared to be anxious; PRN Propranolol provided. Patient denies SI, HI, A/VH; she continues to present guarded but and no apparent delusions expressed. Patient is malodorous (smells yeasty). She is self isolative but participated in HS snack and watched TV in the community room prior to bed; observed sleeping and does not appear to be having difficulty. Plan : Pt. continues to require medication adjustments and a safe and supportive environment.
[2022-09-29 08:00] VITALS: BP 105/60
[2022-09-29] MEDS: nicotine 21mg patch - 24 hr TD SCH (08:02)
[2022-09-29] MEDS: lamoTRIgine 25mg tablet PO SCH ×2 (08:02→20:37)
--- NOTE | 2022-09-29 14:26 | NUR ---
Nursing Progress Note: Problem : Pt admitted to [facility] for [facility] health on a 5150 for DTS from our ER at 1445. Pt was kicking street signs and yelling. Pt was attempting to enter other peoples residence. Pt unable to articulate where she was or is going, making nonsensical statements. Pt has history of schizoaffective disorder. Interventions : Maintained a safe and supportive environment, ensured contract for safety, provided clear and simple instructions, encouraged participation on the unit, obtained an order for PRN Trazodone r/t insomnia, and maintained Q 15min safety checks. Response : Patient is pleasant and cooperative with care; compliant with medication. She denies SI, HI, A/VH; no apparent delusions expressed but remains guarded and responds minimally. Patient isolates to her room the majority of the shift; participates in meals and promptly returns to bed. Plan : Pt. continues to require medication adjustments and a safe and supportive environment.
[2022-09-29] MEDS: ascorbic acid 500mg tablet PO SCH (17:28)
[2022-09-29 19:10] VITALS: BP 109/76
[2022-09-29] MEDS: propranolol 10mg tablet PO PRN (19:10)
[2022-09-29 19:30] VITALS: BP 109/76
[2022-09-29] MEDS: iron polysaccharide complex 150mg capsule PO SCH (20:36)
[2022-09-29] MEDS: OLANZapine 5mg rapidly disint. tablet PO SCH (20:36)
[2022-09-29] MEDS: traZODone 50mg tablet PO PRN (22:20)
--- NOTE | 2022-09-30 02:58 | NUR ---
Nursing Progress Note: Problem : Pt admitted to [facility] for [facility] health on a 5150 for DTS from our ER at 1445. Pt was kicking street signs and yelling. Pt was attempting to enter other peoples residence. Pt unable to articulate where she was or is going, making nonsensical statements. Pt has history of schizoaffective disorder. Interventions : Maintained a safe and supportive environment, ensured contract for safety, provided clear and simple instructions, encouraged participation on the unit, obtained an order for PRN Trazodone r/t insomnia, and maintained Q 15min safety checks. Response : Patient is pleasant and cooperative with care; compliant with medication. PRN Propranolol provided for c/o increased anxiety and PRN Trazodone provided for difficulty getting to sleep. Patient participated in HS snack and watched TV in the recreation room prior to bed; observed sleeping after Trazodone and appears to be sleeping without difficulty. Patient is malodorous; chart writer attempted to have patient shower but she stated she would take a shower tomorrow. Plan : Pt. continues to require medication adjustments and a safe and supportive environment.
[2022-09-30] MEDS: lamoTRIgine 25mg tablet PO SCH ×2 (07:47→21:01)
[2022-09-30] MEDS: nicotine 21mg patch - 24 hr TD SCH (07:47)
[2022-09-30] MEDS: iron polysaccharide complex 150mg capsule PO SCH ×2 (07:47→21:01)
[2022-09-30] MEDS: ascorbic acid 500mg tablet PO SCH ×2 (07:47→17:09)
[2022-09-30 08:00] VITALS: BP 103/59
--- NOTE | 2022-09-30 16:49 | NUR ---
Nursing Progress Note: Problem: Pt admitted to [facility] for [facility] health on a 5150 for DTS from our ER at 1445. Pt was kicking street signs and yelling. Pt was attempting to enter other peoples residence. Pt unable to articulate where she was or is going, making nonsensical statements. Pt has history of schizoaffective disorder. Interventions: Provide medication administration & medication management; Maintained a safe & supportive environment; Clear & simple instructions; Direction & encouragement regarding performance of ADLs; monitored behaviors & maintained clear boundaries; Patient physical assessment & 1:1 patient interview; Therapeutic conversation & active listening; Patient education & monitoring. Response: Received patient who was woke up at approximately 0745 to take her prescribed medications. Patient woke up briefly and answered a few questions regarding her physical assessment and brief interview before falling right back to sleep. Despite attempts to wake the patient up the rest of the day was futile. Patient did not get out of bed for breakfast, or lunch and snacks x2. Will make an attempt to wake the patient up later today for dinner. Patient denies SI/AV/VH. Plan: Pt. continues to require medication adjustments and a safe and supportive environment.
[2022-09-30] MEDS: propranolol 10mg tablet PO PRN (17:08)
[2022-09-30 19:35] VITALS: BP 118/58
[2022-09-30] MEDS: OLANZapine 5mg rapidly disint. tablet PO SCH (21:01)
--- NOTE | 2022-10-01 03:52 | NUR ---
Nursing Progress Note: Problem : Pt admitted to [facility] for [facility] health on a 5150 for DTS from our ER at 1445. Pt was kicking street signs and yelling. Pt was attempting to enter other peoples residence. Pt unable to articulate where she was or is going, making nonsensical statements. Pt has history of schizoaffective disorder. Interventions : Maintained a safe and supportive environment, ensured contract for safety, provided clear and simple instructions, encouraged participation on the unit, obtained an order for PRN Trazodone r/t insomnia, and maintained Q 15min safety checks. Response : Patient is pleasant and cooperative with care; compliant with medication. Patient denies SI, HI, A/VH; no apparent delusions expressed. Patient remains guarded and responds minimally. Patient participated in HS snack and watched TV in recreation room prior to bed; observed sleeping and does not appear to be having difficulty. Plan : Pt. continues to require medication adjustments and a safe and supportive environment.
[2022-10-01 08:00] VITALS: BP 92/48
[2022-10-01] MEDS: nicotine 21mg patch - 24 hr TD SCH (09:28)
[2022-10-01] MEDS: lamoTRIgine 25mg tablet PO SCH ×2 (09:29→20:18)
[2022-10-01] MEDS: ascorbic acid 500mg tablet PO SCH ×2 (09:29→17:08)
[2022-10-01] MEDS: iron polysaccharide complex 150mg capsule PO SCH ×2 (09:31→20:17)
--- NOTE | 2022-10-01 13:43 | NUR ---
Left message for Yu, Aunt, requesting a call back (ph# [phone]). DREW De Los Santos
--- NOTE | 2022-10-01 17:26 | NUR ---
Nursing Progress Note: Problem: Pt admitted to [facility] for [facility] health on a 5150 for DTS from our ER at 1445. Pt was kicking street signs and yelling. Pt was attempting to enter other peoples residence. Pt unable to articulate where she was or is going, making nonsensical statements. Pt has history of schizoaffective disorder. Interventions: Provide medication administration & medication management; Maintained a safe & supportive environment; Clear & simple instructions; Direction & encouragement regarding performance of ADLs; monitored behaviors & maintained clear boundaries; Patient physical assessment & 1:1 patient interview; Therapeutic conversation & active listening; Patient education & monitoring. Response: Received patient at 0630 who was resting in bed and took her medications at approximately 0755. Patient declined to come to breakfast at 0800 in the Community Room. Patient also declined to get out of bed for lunch at 1300 despite being woke up for each meal. Patient go up at 1500 and attended snack time. Patient denies SI/AV/AH. Patient was seen by Dr. Heredia today who also encouraged her to get up for meals/snacks and to attend the Group Meeting each day. There was no Group Meeting held today. Patient is pleasant and smiles a bit more each day. Patient reports that her discharge plan is to go home to her Aunts home when discharged from [facility]. Will continue to monitor. Plan: Pt. continues to require medication adjustments and a safe and supportive environment. ELIZA Fowler, left a message with patient's aunt to return call to her regarding possible discharge.
[2022-10-01] MEDS: propranolol 10mg tablet PO PRN (19:18)
[2022-10-01 19:38] VITALS: BP 122/74
[2022-10-01] MEDS: OLANZapine 5mg rapidly disint. tablet PO SCH (20:17)
[2022-10-01] MEDS: traZODone 50mg tablet PO PRN ×2 (20:22→21:29)
[2022-10-01] MEDS ORDERED: diphenhydrAMINE 25mg capsule PO ONE (22:25)
--- NOTE | 2022-10-02 03:46 | NUR ---
Nursing Progress Note: Problem: Pt admitted to [facility] for Behavioral health on a 5150 for DTS from our ER at 1445. Pt was kicking street signs and yelling. Pt was attempting to enter other peoples residence. Pt unable to articulate where she was or is going, making nonsensical statements. Pt has history of schizoaffective disorder. Interventions: Provide medication administration & medication management; Maintained a safe & supportive environment; Clear & simple instructions; Direction & encouragement regarding performance of ADLs; monitored behaviors & maintained clear boundaries; Patient physical assessment & 1:1 patient interview; Therapeutic conversation & active listening; Patient education & monitoring. Response: Pt in bed at start of shift. She got up and came to group room for snack. Patient denies SI/AV/AH. Patient is pleasant and cooperative. Patient is looking forward to discharge which she believes might be tomorrow. The plan is to go home to her Aunts home which the pt reports is a good place for her. Plan: Pt. continues to require medication adjustments and a safe and supportive environment. ELIZA Fowler, left a message with patient's aunt to return call to her regarding possible discharge.
[2022-10-02 08:00] VITALS: BP 88/63
[2022-10-02] MEDS: ascorbic acid 500mg tablet PO SCH ×2 (08:19→17:06)
[2022-10-02] MEDS: nicotine 21mg patch - 24 hr TD SCH (08:19)
[2022-10-02] MEDS: iron polysaccharide complex 150mg capsule PO SCH ×2 (08:19→21:01)
[2022-10-02] MEDS: lamoTRIgine 25mg tablet PO SCH ×2 (08:19→21:01)
--- NOTE | 2022-10-02 10:06 | NUR ---
F/u 10/02: Pt also DX microcytic anemia w/ hx gastric bypass now noted in EMR though unsure if vertical sleeve vs actual bypass procedure. Receiving routine Fe and vitamin C; TERESA d/w RN regarding routine MVI and B12 supplementation if physician agreeable. Pt PO continues to fluctuate w/ frequent refusals but eats well when participates at meals overall ~42% avg partially meeting needs. Pt remains in room most times w/ anergia per MD note; will send smoothies BIDLD to assist meeting needs since possibly easier for pt to intake dietary notified. Noted LBM 09/26 w/ PRN MoM available yet to be given; TERESA d/w RN regarding PRN bowel regimen usage if truly 5 days constipation. Will monitor for further nutrition intervention needs this admit. Rec: 1. continue regular diet; encourage PO 2. smoothies BIDLD; encourage PO 3. routine Fe, vitamin C, B12, and MVI supplementation if physician agreeable; hx gastric bypass unsure if vertical sleeve vs actual bypass 4. bowel care per rx; utilize PRN bowel regimen or consider routine bowel care if truly 5 days constipation 5. weekly wts Addendum: 10/02/22 at [address] Amended: Links added.
[2022-10-02 11:10] LABS: BASOPHILS # (AUTO) 0.1 X10'3 (0-0.2); BASOPHILS % (AUTO) 1.4 % (0-1); EOSINOPHILS # (AUTO) 0.1 X10'3 (0-0.9); EOSINOPHILS % (AUTO) 1.4 % (0-6); HEMATOCRIT 31.3 % (35.0-45.0); HEMOGLOBIN 9.5 g/dl (12.0-16.0); LYMPHOCYTES # (AUTO) 1.2 X10'3 (1.1-4.8); LYMPHOCYTES % (AUTO) 21.2 % (21-51); MEAN CORPUSCULAR HEMOGLOBIN 19.8 PG (27.0-31.0); MEAN CORPUSCULAR HGB CONC 30.4 g/dL (33.0-36.5); MEAN CORPUSCULAR VOLUME 65.2 FL (78-98); MEAN PLATELET VOLUME 7.5 FL (7.4-10.4); MONOCYTES # (AUTO) 0.4 X10'3 (0-0.9); MONOCYTES % (AUTO) 6.4 % (2-12); NEUTROPHILS # (AUTO) 3.9 X10'3 (1.8-7.7); NEUTROPHILS % (AUTO) 69.6 % (42-75); PLATELET COUNT 457 X10'3 (140-440); RED BLOOD COUNT 4.81 X10'6 (4.20-5.60); RED CELL DISTRIBUTION WIDTH 19.2 % (11.5-14.5); WHITE BLOOD COUNT 5.7 X10'3 (4.5-11.0)
[2022-10-02 11:26] LABS: ALANINE AMINOTRANSFERASE 18 U/L (12-78); ALBUMIN 3.3 G/DL (3.4-5.0); ALBUMIN/GLOBULIN RATIO 0.8 (1.1-1.5); ALKALINE PHOSPHATASE 128 IU/L (46-116); ANION GAP 5 (8-16); ASPARTATE AMINO TRANSFERASE 21 U/L (10-37); BILIRUBIN,TOTAL 0.3 MG/DL (0.1-1.0); BLOOD UREA NITROGEN 9 MG/DL (7-18); BUN/CREATININE RATIO 12.2 (10.0-20.0); CHLORIDE 105 MMOL/L (99-107); CREATININE 0.74 MG/DL (0.40-0.90); FERRITIN 6 NG/ML (8-252); GLUCOSE 100 MG/DL (70-104); POTASSIUM 3.8 MMOL/L (3.5-5.1); SODIUM 138 MMOL/L (135-145); TOTAL CARBON DIOXIDE 28.2 MMOL/L (24-32); TOTAL PROTEIN 7.7 G/DL (6.4-8.2); eGFR 86 ML/MIN
[2022-10-02 11:28] LABS: % IRON SATURATION 3 % (11-46); IRON 14 UG/DL (49-151); TOTAL IRON BINDING CAPACITY 429 UG/DL (259-388)
[2022-10-02 11:37] LABS: ANISOCYTOSIS 2+; HYPOCHROMASIA 1+; MICROCYTOSIS 2+; PLATELET ESTIMATE INCREASED
[2022-10-02 11:38] LABS: ELLIPTOCYTES FEW
--- NOTE | 2022-10-02 13:42 | NUR ---
Left message for Yu, Aunt, requesting a call back (ph# [phone]). DREW De Los Santos
[2022-10-02 17:30] VITALS: BP 101/68
[2022-10-02] MEDS: propranolol 10mg tablet PO PRN (17:33)
--- NOTE | 2022-10-02 17:37 | NUR ---
Nursing Progress Note: Problem: Pt admitted to [facility] for Behavioral health on a 5150 for DTS from our ER at 1445. Pt was kicking street signs and yelling. Pt was attempting to enter other peoples residence. Pt unable to articulate where she was or is going, making nonsensical statements. Pt has history of schizoaffective disorder. Interventions: Provide medication administration & medication management; Maintained a safe & supportive environment; Clear & simple instructions; Direction & encouragement regarding performance of ADLs; monitored behaviors & maintained clear boundaries; Patient physical assessment & 1:1 patient interview; Therapeutic conversation & active listening; Patient education & monitoring. Response: Patient asleep at change of shift. Met with RN for 1:1 assessment at the bedside. She did not eat breakfast, which is normal for her. She answers questions quickly, then lays back down and closes her eyes. Patient denies S/I, A/VH. She was hoping to discharge today, so became anxious toward the end of the shift and requested a PRN; Propranolol given. Isolates to her room for the majority of the shift. Plan: Pt. continues to require medication adjustments and a safe and supportive environment. ELIZA Fowler, left a message with patient's aunt to return call to her regarding possible discharge.
[2022-10-02 20:00] VITALS: BP 107/56
[2022-10-02] MEDS: acetaminophen 325mg tablet PO PRN (21:00)
[2022-10-02] MEDS: traZODone 50mg tablet PO PRN ×2 (21:00→22:07)
[2022-10-02] MEDS: OLANZapine 5mg rapidly disint. tablet PO SCH (21:01)
--- NOTE | 2022-10-03 00:22 | NUR ---
Nursing Progress Note: Problem: Pt admitted to [facility] for [facility]al health on a 5150 for DTS from our ER at 1445. Pt was kicking street signs and yelling. Pt was attempting to enter other peoples residence. Pt unable to articulate where she was or is going, making nonsensical statements. Pt has history of schizoaffective disorder. Interventions: Provide medication administration & medication management; Maintained a safe & supportive environment; Clear & simple instructions; Direction & encouragement regarding performance of ADLs; monitored behaviors & maintained clear boundaries; Patient physical assessment & 1:1 patient interview; Therapeutic conversation & active listening; Patient education & monitoring. Response: Patient denies SI/AV/AH. Patient is pleasant and cooperative. When asked before med pass if there was anything I could get for her she mentioned something for sleep and tylenol. Gave hs meds and trazodone and tylenol. she enquired about her benadryl. I told her that was a one time thing and that lets give the trazodone a shot. She was agreeable. At about 2200 she still couldn't sleep and wanted the benadryl, a dose of trazodone was given. Plan: Pt. continues to require medication adjustments and a safe and supportive environment. ELIZA Fowler, left a message with patient's aunt to return call to her regarding possible discharge.
[2022-10-03 08:00] VITALS: BP 103/66
[2022-10-03] MEDS: iron polysaccharide complex 150mg capsule PO SCH (08:04)
[2022-10-03] MEDS: lamoTRIgine 25mg tablet PO SCH (08:04)
[2022-10-03] MEDS: ascorbic acid 500mg tablet PO SCH (08:06)
[2022-10-03] MEDS: nicotine 21mg patch - 24 hr TD SCH (08:06)
--- NOTE | 2022-10-03 11:57 | NUR ---
Spoke to Alicia Arreguin("Aunt") ph# [phone] as marketing underwriter has been unable to reach Eric's aunt, Yu, that she resides with. Alicia called Yu and confirmed she will be home this afternoon and Eric can return. Informed Alicia of follow up appointments. DREW De Los Santos
[2022-10-03] MEDS ORDERED: LAMO25TA5 PO (13:00)
[2022-10-03] MEDS ORDERED: IRON150C13 PO (13:00)
[2022-10-03] MEDS ORDERED: OLAN15TA20 PO (13:00)
[2022-10-03] MEDS ORDERED: NICO-687 TD (13:00)
[2022-10-03] MEDS ORDERED: TRAZ-251 PO (13:00)
--- NOTE | 2022-10-03 14:50 | NUR ---
DISCHARGE NOTE: Pt discharged home to Aunt's. This RN walked pt off the unit, all belongings returned. Pt expressed understanding of discharge instructions including Rx's and follow up care.
== END 2022-10-03 15:00 | disposition home or self-care (01) | DRG 885 ==
LOC: ER 11:15 → ED HOLD 09-22 13:30 → ADULT MH 09-22 14:48
PROVIDERS: ADMIT Psychiatry & Neurology Psychiatry; ATTEND Psychiatry & Neurology Psychiatry
DX: F25.0 Schizoaffective disorder, bipolar type (principal); F11.10 Opioid abuse, uncomplicated; F15.159 Other stimulant abuse with stimulant-induced psychotic disorder, unspecified; D50.9 Iron deficiency anemia, unspecified; Z20.822 Contact with and (suspected) exposure to COVID-19; G24.4 Idiopathic orofacial dystonia; F41.9 Anxiety disorder, unspecified; G47.00 Insomnia, unspecified; G89.29 Other chronic pain; E66.01 Morbid (severe) obesity due to excess calories; R10.9 Unspecified abdominal pain; F17.210 Nicotine dependence, cigarettes, uncomplicated; F31.9 Bipolar disorder, unspecified; Z79.899 Other long term (current) drug therapy; Z83.3 Family history of diabetes mellitus; Z81.8 Family history of other mental and behavioral disorders; Z98.84 Bariatric surgery status; Z68.35 Body mass index [BMI] 35.0-35.9, adult; Z91.030 Bee allergy status
CPT/HCPCS: 36415; 80053; 80061; 80305; 80320; 81001; 81025; 82607; 82728; 83036; 83540; 83550; 84443; 85008; 85025; 87081; 87811; 99285; J1630; J2060; Q0163

== ENCOUNTER 2022-11-16 17:33 | Emergency (ER) | payer MEDICARE, MEDICAID ==
[~2022-11-16] VITALS: Ht 162.6 cm; Wt 84.0 kg
[~2022-11-16 17:33] MED LIST changes: -DIVA250T8 PO; -FERR142T13 PO; +IRON150C13 PO; -LAMO100T2 PO; +LAMO25TA5 PO; +NICO-687 TD; -NICO-907 BC; -NYSPWD TP; +OLAN15TA20 PO; -PROP10TA10 PO; -QUET100T34 PO; +TRAZ-251 PO
[2022-11-16 19:06] VITALS: BP 121/79
== END 2022-11-16 19:07 | disposition home or self-care (01) ==
LOC: ER 17:33
DX: S09.90XA Unspecified injury of head, initial encounter (principal); W19.XXXA Unspecified fall, initial encounter; Y93.89 Activity, other specified; Y92.89 Other specified places as the place of occurrence of the external cause; Y99.8 Other external cause status
CPT/HCPCS: 70450; 71045; 93005; 99284

== ENCOUNTER 2023-03-24 11:33 | Emergency (ER) | payer MEDICARE, MEDICAID ==
[~2023-03-24] VITALS: Ht 165.1 cm; Wt 78.8 kg
[2023-03-24 11:48] VITALS: BP 116/73; PULSE 97; RESP 18; TEMP 98.9; O2SAT 100
== END 2023-03-24 15:54 | disposition left against medical advice (07) ==
LOC: ER 11:33
DX: T50.901A Poisoning by unspecified drugs, medicaments and biological substances, accidental (unintentional), initial encounter (principal); R40.4 Transient alteration of awareness; Z53.21 Procedure and treatment not carried out due to patient leaving prior to being seen by health care provider; Y92.89 Other specified places as the place of occurrence of the external cause
CPT/HCPCS: 99281

== ENCOUNTER 2023-03-24 16:16 | Emergency (ER) | payer MEDICARE, MEDICAID ==
[~2023-03-24] VITALS: Ht 170.2 cm; Wt 78.8 kg
[2023-03-24 16:33] VITALS: BP 124/68; PULSE 94; RESP 19; TEMP 98.9; O2SAT 100
[2023-03-24] MEDS ORDERED: ibuprofen tablet 400 MG TABLET PO ONE (17:50)
== END 2023-03-24 19:20 | disposition home or self-care (01) ==
LOC: ER 16:17
DX: R51.9 Headache, unspecified (principal); G89.29 Other chronic pain; F31.9 Bipolar disorder, unspecified; F15.90 Other stimulant use, unspecified, uncomplicated; Z91.030 Bee allergy status; Z79.899 Other long term (current) drug therapy
CPT/HCPCS: 99282

== ENCOUNTER 2023-04-24 01:35 | Emergency (ER) | payer MEDICARE, MEDICAID ==
[~2023-04-24] VITALS: Ht 160 cm; Wt 60.0 kg
[2023-04-24 05:14] VITALS: BP 120/76; PULSE 82; RESP 15; TEMP 98.3; O2SAT 98
[2023-04-24] MEDS ORDERED: ACET-1025 PO (05:20)
== END 2023-04-24 05:34 | disposition home or self-care (01) ==
LOC: ER 01:36
DX: G89.29 Other chronic pain (principal); F31.9 Bipolar disorder, unspecified; F20.9 Schizophrenia, unspecified; F15.10 Other stimulant abuse, uncomplicated; Z79.899 Other long term (current) drug therapy; Z91.030 Bee allergy status
CPT/HCPCS: 99282

== ENCOUNTER 2023-04-27 06:12 | Emergency (ER) | payer MEDICARE, MEDICAID ==
[~2023-04-27] VITALS: Ht 162.6 cm; Wt 78.6 kg
[~2023-04-27 06:12] MED LIST changes: +ACET-1025 PO
[2023-04-27 06:31] VITALS: BP 135/91; PULSE 59; RESP 18; TEMP 98; O2SAT 100
[2023-04-27] MEDS ORDERED: OLAN5TAB3 PO (07:59)
== END 2023-04-27 08:25 | disposition left against medical advice (07) ==
LOC: ER 06:13
DX: F20.9 Schizophrenia, unspecified (principal); F15.10 Other stimulant abuse, uncomplicated; F31.9 Bipolar disorder, unspecified; F17.200 Nicotine dependence, unspecified, uncomplicated; Z91.030 Bee allergy status; Z79.899 Other long term (current) drug therapy
CPT/HCPCS: 99283

== ENCOUNTER 2023-06-27 10:48 | Emergency (ER) | payer MEDICARE, MEDICAID ==
[~2023-06-27] VITALS: Ht 167.6 cm; Wt 79.0 kg
[~2023-06-27 10:48] MED LIST changes: -ACET-1025 PO; +OLAN5TAB3 PO
[2023-06-27 10:49] VITALS: BP 120/87; PULSE 121; TEMP 98.9; O2SAT 99
[2023-06-27] MEDS ORDERED: acetaminophen 325mg tablet PO ONE (11:00)
[2023-06-27 11:27] VITALS: RESP 18
== END 2023-06-27 11:45 | disposition home or self-care (01) ==
LOC: ER 10:48
DX: Z00.00 Encounter for general adult medical examination without abnormal findings (principal); F31.9 Bipolar disorder, unspecified; F15.90 Other stimulant use, unspecified, uncomplicated; Z91.030 Bee allergy status; Z79.899 Other long term (current) drug therapy
CPT/HCPCS: 99282

== ENCOUNTER 2023-07-29 14:51 | Emergency (ER) | payer MEDICARE, MEDICAID ==
[~2023-07-29] VITALS: Ht 167.6 cm; Wt 68.2 kg
[2023-07-29 18:32] LABS: BASOPHILS # (AUTO) 0.1 X10'3 (0-0.2); BASOPHILS % (AUTO) 0.7 % (0-1); EOSINOPHILS % (AUTO) 0 % (0-6); HEMATOCRIT 26.4 % (35.0-45.0); HEMOGLOBIN 7.9 g/dl (12.0-16.0); LYMPHOCYTES # (AUTO) 1.1 X10'3 (1.1-4.8); LYMPHOCYTES % (AUTO) 11.7 % (21-51); MEAN CORPUSCULAR HEMOGLOBIN 19.9 PG (27.0-31.0); MEAN CORPUSCULAR HGB CONC 29.8 g/dL (33.0-36.5); MEAN CORPUSCULAR VOLUME 66.9 FL (78-98); MEAN PLATELET VOLUME 7.1 FL (7.4-10.4); MONOCYTES # (AUTO) 0.8 X10'3 (0-0.9); MONOCYTES % (AUTO) 8.7 % (2-12); NEUTROPHILS # (AUTO) 7.6 X10'3 (1.8-7.7); NEUTROPHILS % (AUTO) 78.9 % (42-75); PLATELET COUNT 460 X10'3 (140-440); RED BLOOD COUNT 3.95 X10'6 (4.20-5.60); RED CELL DISTRIBUTION WIDTH 19.7 % (11.5-14.5); WHITE BLOOD COUNT 9.7 X10'3 (4.5-11.0)
[2023-07-29 18:50] LABS: ALANINE AMINOTRANSFERASE 33 U/L (12-78); ALBUMIN 2.7 G/DL (3.4-5.0); ALBUMIN/GLOBULIN RATIO 0.6 (1.1-1.5); ALKALINE PHOSPHATASE 153 IU/L (46-116); ANION GAP 14 (8-16); ASPARTATE AMINO TRANSFERASE 41 U/L (10-37); BILIRUBIN,TOTAL 0.2 MG/DL (0.1-1.0); BLOOD UREA NITROGEN 17 MG/DL (7-18); BUN/CREATININE RATIO 23.9 (10.0-20.0); CALCIUM 8.5 MG/DL (8.5-10.1); CHLORIDE 104 MMOL/L (99-107); CREATININE 0.71 MG/DL (0.40-0.90); GLUCOSE 114 MG/DL (70-104); LIPASE 35 U/L (16-77); POTASSIUM 3.4 MMOL/L (3.5-5.1); SODIUM 138 MMOL/L (135-145); TOTAL CARBON DIOXIDE 20.5 MMOL/L (24-32); TOTAL PROTEIN 7.3 G/DL (6.4-8.2); eCRCL 96 ML/MIN; eGFR 90 ML/MIN
[2023-07-29 18:54] LABS: ETHANOL < 10 MG/DL (<10)
[2023-07-29 20:26] LABS: BILIRUBIN,URINE NEGATIVE (Neg); CLARITY,URINE CLOUDY (Clear); COLOR,URINE YELLOW (Yellow); GLUCOSE, URINE NEGATIVE (Neg); KETONES,URINE NEGATIVE (Neg); LEUKOCYTE ESTERASE ,URINE MODERATE (Neg); NITRITES, URINE POSITIVE (Neg); OCCULT BLOOD,URINE NEGATIVE (Neg); PH,URINE 6.5 (4.8-8.0); PROTEIN,URINE NEGATIVE (Neg)
[2023-07-29 20:30] LABS: UA COLLECTION TYPE CLN CATCH MIDSTREAM
[2023-07-29 20:33] LABS: URINE HCG NEGATIVE (NEG)
[2023-07-29 20:41] LABS: URINE AMPHETAMINE SCREEN POSITIVE (Neg); URINE BARBITUATE SCREEN NEGATIVE (Neg); URINE BENZODIAZEPINES SCREEN NEGATIVE (Neg); URINE CANNABINOID SCREEN NEGATIVE (Neg); URINE COCAINE SCREEN NEGATIVE (Neg); URINE METHADONE SCREEN NEGATIVE (Neg); URINE OPIATE SCREEN NEGATIVE (Neg); URINE PHENCYCLIDINE SCREEN NEGATIVE (Neg)
[2023-07-29 20:42] LABS: BACTERIA,URINE 4+ /HPF (Neg); RBC,URINE 0-2 /HPF (0-2); SQUAMOUS EPITHELIAL CELL,UR FEW /LPF (FEW); WBC,URINE 20-30 /HPF (0-4)
[2023-07-29 21:04] LABS: THYROID STIMULATING HORMONE 1.02 ulU/ml (0.34-4.50)
[2023-07-29] MEDS ORDERED: nitrofuran monohydrate/nitrofuran macrocrysal 100 MG (MacroBID) capsule PO ONE (21:20)
[2023-07-29 21:36] LABS: ANISOCYTOSIS 2+; MICROCYTOSIS 2+; PLATELET ESTIMATE INCREASED
[2023-07-29 21:39] LABS: ELLIPTOCYTES FEW; HYPOCHROMASIA 1+
[2023-07-30 05:40] VITALS: TEMP 99.6
[2023-07-30] MEDS ORDERED: cephalexin 250mg capsule PO SCH ×2 (05:41→08:00)
[2023-07-30 09:00] VITALS: BP 121/76; PULSE 111; RESP 18; O2SAT 99
[2023-07-30] MEDS ORDERED: OLAN5TAB75 PO (10:41)
[2023-07-30] MEDS ORDERED: IRON150C5 PO (10:50)
[2023-07-30] MEDS ORDERED: potassium Cl 20 mEq SR tablet PO STA (11:00)
[2023-07-30] MEDS ORDERED: CEPH-585 PO ×2 (13:37)
[2023-07-30] MEDS ORDERED: iron polysaccharide complex 150mg capsule PO SCH (20:00)
[2023-07-30] MEDS ORDERED: OLANZAPINE 5 MG TABLET PO SCH (21:00)
[2023-07-31] MEDS ORDERED: IRON150C13 PO (22:40)
[2023-07-31] MEDS ORDERED: CEPH-585 PO (22:40)
[2023-07-31] MEDS ORDERED: OLAN5TAB3 PO (22:40)
[2023-07-31] MEDS ORDERED: IRON150C5 PO (22:40)
== END 2023-07-30 14:54 | disposition home or self-care (01) ==
LOC: ER 14:52
DX: N39.0 Urinary tract infection, site not specified (principal); Z20.822 Contact with and (suspected) exposure to COVID-19; D64.89 Other specified anemias; F31.9 Bipolar disorder, unspecified; F15.90 Other stimulant use, unspecified, uncomplicated; Z73.6 Limitation of activities due to disability; Z91.030 Bee allergy status; Z79.2 Long term (current) use of antibiotics; Z79.899 Other long term (current) drug therapy
CPT/HCPCS: 36415; 80053; 80305; 80320; 81001; 81025; 83690; 84443; 85008; 85025; 87077; 87088; 87186; 87811; 99285

== ENCOUNTER 2023-07-31 13:37 | Inpatient (IN) | payer MEDICARE, MEDICAID ==
[~2023-07-31] VITALS: Ht 162.6 cm; Wt 71.2 kg
[~2023-07-31 13:37] MED LIST changes: +CEPH-585 PO; +IRON150C5 PO; -LAMO25TA5 PO; -NICO-687 TD; -OLAN15TA20 PO; -OLAN5TAB3 PO; +OLAN5TAB75 PO; -TRAZ-251 PO
[2023-07-31 17:36] LABS: BASOPHILS # (AUTO) 0.1 X10'3 (0-0.2); BASOPHILS % (AUTO) 1.1 % (0-1); EOSINOPHILS % (AUTO) 0 % (0-6); LYMPHOCYTES # (AUTO) 2.6 X10'3 (1.1-4.8); MONOCYTES # (AUTO) 1.4 X10'3 (0-0.9); MONOCYTES % (AUTO) 11.3 % (2-12); NEUTROPHILS # (AUTO) 8.1 X10'3 (1.8-7.7); NEUTROPHILS % (AUTO) 66.6 % (42-75); PLATELET COUNT 521 X10'3 (140-440); WHITE BLOOD COUNT 12.2 X10'3 (4.5-11.0)
[2023-07-31 17:56] LABS: RED BLOOD COUNT 4.19 X10'6 (4.20-5.60)
[2023-07-31 17:57] LABS: HEMATOCRIT 27.8 % (35.0-45.0); HEMOGLOBIN 8.9 g/dl (12.0-16.0); MEAN CORPUSCULAR HEMOGLOBIN 21.1 PG (27.0-31.0); MEAN CORPUSCULAR HGB CONC 31.8 g/dL (33.0-36.5); MEAN CORPUSCULAR VOLUME 66.4 FL (78-98); RED CELL DISTRIBUTION WIDTH 18.9 % (11.5-14.5)
[2023-07-31 18:24] LABS: ALANINE AMINOTRANSFERASE 35 U/L (12-78); ALBUMIN/GLOBULIN RATIO 0.6 (1.1-1.5); ALKALINE PHOSPHATASE 197 IU/L (46-116); ANION GAP 12 (8-16); ASPARTATE AMINO TRANSFERASE 41 U/L (10-37); BILIRUBIN,TOTAL 0.2 MG/DL (0.1-1.0); BLOOD UREA NITROGEN 12 MG/DL (7-18); BUN/CREATININE RATIO 14.3 (10.0-20.0); CALCIUM 8.7 MG/DL (8.5-10.1); CHLORIDE 105 MMOL/L (99-107); CREATININE 0.84 MG/DL (0.40-0.90); GLUCOSE 91 MG/DL (70-104); LIPASE 65 U/L (16-77); POTASSIUM 3.5 MMOL/L (3.5-5.1); SODIUM 139 MMOL/L (135-145); TOTAL CARBON DIOXIDE 22.4 MMOL/L (24-32); TOTAL PROTEIN 8.2 G/DL (6.4-8.2); eCRCL 81 ML/MIN; eGFR 74 ML/MIN
[2023-07-31 18:45] LABS: ANISOCYTOSIS 2+; ELLIPTOCYTES FEW; HYPOCHROMASIA 1+; MICROCYTOSIS 2+; PLATELET ESTIMATE INCREASED
[2023-07-31 18:49] LABS: BILIRUBIN,URINE NEGATIVE (Neg); CLARITY,URINE CLOUDY (Clear); COLOR,URINE YELLOW (Yellow); GLUCOSE, URINE 250 mg/dl (Neg); KETONES,URINE TRACE mg/dl (Neg); LEUKOCYTE ESTERASE ,URINE TRACE (Neg); NITRITES, URINE POSITIVE (Neg); OCCULT BLOOD,URINE SMALL (Neg); PROTEIN,URINE NEGATIVE (Neg)
[2023-07-31 18:53] LABS: URINE HCG NEGATIVE (NEG)
[2023-07-31 18:55] LABS: UA COLLECTION TYPE CLN CATCH MIDSTREAM
[2023-07-31 18:56] LABS: SQUAMOUS EPITHELIAL CELL,UR MANY /LPF (FEW); TRANSITIONAL EPI CELLS,URINE FEW /HPF
[2023-07-31 18:57] LABS: MUCUS STRANDS FEW /LPF (Neg); WBC,URINE 20-30 /HPF (0-4)
[2023-07-31 18:58] LABS: BACTERIA,URINE 4+ /HPF (Neg)
[2023-07-31] MEDS: CefTRIAXone 250MG inj IM ONE (19:11)
[2023-07-31] MEDS: CefTRIAXone 1000mg IM Kit (w/lidocaine diluent) IM ONE (19:41)
[2023-07-31] MEDS: phenazopyridine 100mg tablet PO ONE (19:42)
[2023-07-31 20:29] LABS: URINE AMPHETAMINE SCREEN NEGATIVE (Neg); URINE BARBITUATE SCREEN NEGATIVE (Neg); URINE BENZODIAZEPINES SCREEN NEGATIVE (Neg); URINE CANNABINOID SCREEN NEGATIVE (Neg); URINE COCAINE SCREEN NEGATIVE (Neg); URINE METHADONE SCREEN NEGATIVE (Neg); URINE OPIATE SCREEN NEGATIVE (Neg); URINE PHENCYCLIDINE SCREEN NEGATIVE (Neg)
[2023-07-31] MEDS: ketorolac trometh. 30mg/ml inj. IM ONE (20:55)
[2023-07-31] MEDS: ziprasidone IM 20mg inj **IM only IM ONE (21:56)
[2023-07-31] MEDS ORDERED: OLAN5TAB3 PO (22:40)
[2023-07-31] MEDS ORDERED: CEPH-585 PO (22:40)
[2023-07-31] MEDS ORDERED: IRON150C13 PO (22:40)
[2023-07-31 23:43] LABS: ETHANOL < 10 MG/DL (<10); SALICYLATE 2.3 MG/DL (4.0-20.0)
[2023-07-31 23:47] LABS: ACETAMINOPHEN < 2.0 UG/ML (10-30)
[2023-08-01] MEDS: OLANZAPINE 5 MG TABLET PO SCH (00:13)
[2023-08-01] MEDS ORDERED: iron polysaccharide complex 150mg capsule PO SCH (08:00)
[2023-08-01] MEDS: iron polysaccharide complex 150mg capsule PO SCH (09:04)
[2023-08-01] MEDS: cephalexin 500mg capsule PO SCH (09:04)
[2023-08-01 11:40] LABS: BILIRUBIN,URINE NEGATIVE (Neg); CLARITY,URINE SLIGHTLY CLOUDY (Clear); COLOR,URINE YELLOW (Yellow); GLUCOSE, URINE NEGATIVE (Neg); KETONES,URINE NEGATIVE (Neg); LEUKOCYTE ESTERASE ,URINE SMALL (Neg); OCCULT BLOOD,URINE NEGATIVE (Neg); PH,URINE 6.5 (4.8-8.0); PROTEIN,URINE NEGATIVE (Neg)
[2023-08-01 11:42] LABS: UA COLLECTION TYPE CLN CATCH MIDSTREAM
[2023-08-01 11:47] LABS: NITRITES, URINE NEGATIVE (Neg)
[2023-08-01 11:55] LABS: BACTERIA,URINE FEW /HPF (Neg); MUCUS STRANDS FEW /LPF (Neg); RBC,URINE 0-2 /HPF (0-2); SQUAMOUS EPITHELIAL CELL,UR MODERATE /LPF (FEW); WBC,URINE 50-100 /HPF (0-4)
[2023-08-01] MEDS: diphenhydrAMINE 50 mg/ml inj IM ONE (18:03)
[2023-08-01] MEDS: haloperidol lactate 5mg/ml inj IM ONE (18:03)
[2023-08-01] MEDS: LORazepam 2 mg/ml vial IM ONE (18:03)
[2023-08-02] MEDS: LORazepam 1 MG tablet PO ONE (05:07)
[2023-08-02] MEDS: ibuprofen tablet 400 MG TABLET PO ONE (05:08)
[2023-08-02] MEDS: ziprasidone IM 20mg inj **IM only IM PRN (19:58)
[2023-08-02] MEDS: haloperidol lactate 5mg/ml inj IM ONE (20:30)
[2023-08-02] MEDS: diphenhydrAMINE 50 mg/ml inj IM ONE (20:53)
[2023-08-02] MEDS: LORazepam 2 mg/ml vial IM ONE (20:54)
[2023-08-04] MEDS: LORazepam 1 MG tablet PO ONE (20:03)
[2023-08-04] MEDS: acetaminophen 325mg tablet PO PRN (20:03)
[2023-08-05] MEDS: LORazepam 1 MG tablet PO ONE (16:23)
[2023-08-07] MEDS: haloperidol lactate 5mg/ml inj IM ONE (11:12)
[2023-08-07] MEDS: diphenhydrAMINE 50 mg/ml inj IM ONE (11:20)
[2023-08-07] MEDS ORDERED: magnesium hydroxide 30ml (MOM) UD suspension PO PRN (14:35)
[2023-08-07] MEDS ORDERED: mag hydrox/Alum hydrox/simeth 30ml oral suspension PO PRN (14:35)
[2023-08-07] MEDS ORDERED: loperamide 2mg capsule PO PRN (14:35)
[2023-08-07 15:13] VITALS: BP 110/60; PULSE 91; RESP 16; TEMP 98.8; O2SAT 99
[2023-08-07] MEDS: NICOTINE POLACRILEX 2 MG LOZENGE BC PRN (15:31)
[2023-08-07 16:45] VITALS: RESP 16; O2SAT 99
[2023-08-07 19:00] VITALS: BP 107/67; PULSE 85; RESP 14; TEMP 97.4; O2SAT 100
[2023-08-07] MEDS: acetaminophen 325mg tablet PO PRN (21:27)
[2023-08-08 07:00] VITALS: RESP 16; O2SAT 100
[2023-08-08 08:00] VITALS: BP 114/79; PULSE 74; RESP 16; TEMP 98.3; O2SAT 100
[2023-08-08] MEDS: OLANZapine 5mg rapidly disint. tablet PO PRN (08:00)
[2023-08-08] MEDS: nicotine 21mg patch - 24 hr TD SCH (08:04)
[2023-08-08 08:38] LABS: CHOL/HDL RATIO 3.4 (0.00-4.99); CHOLESTEROL 153 MG/DL (0-200); HDL CHOLESTEROL 45 MG/DL (35-60); LDL CHOLESTEROL 90 MG/DL (50-100); TRIGLYCERIDES 66 MG/DL (20-135)
[2023-08-08 10:49] LABS: HEMOGLOBIN A1C 5.8 % (4.5-6.2)
[2023-08-08 19:00] VITALS: BP 108/66; PULSE 119; RESP 18; TEMP 98.2; O2SAT 99
[2023-08-09 07:00] VITALS: BP 109/69; PULSE 70; RESP 16; TEMP 98.2; O2SAT 99
[2023-08-09] MEDS: levoFLOXACIN 500mg tablet PO SCH (07:57)
[2023-08-09 19:34] VITALS: BP 111/65; PULSE 78; RESP 20; TEMP 97.9; O2SAT 100; O2SAT 98
[2023-08-09] MEDS: PALIPERIDONE 3 MG TAB.ER.24 PO SCH (20:33)
[2023-08-10 07:31] VITALS: BP 120/64; PULSE 90; RESP 16; TEMP 97.8; O2SAT 99
[2023-08-10 19:00] VITALS: BP 91/41; PULSE 80; RESP 14; TEMP 97.8; O2SAT 97
[2023-08-11 07:00] VITALS: BP 104/63; PULSE 72; RESP 16; TEMP 98.2; O2SAT 98
[2023-08-11] MEDS: lactobacillus rhamnosus 10,000 MMU CELLS/CAPSULE PO SCH (07:45)
[2023-08-11 19:00] VITALS: RESP 17; O2SAT 100
[2023-08-11 20:01] VITALS: BP 102/61; PULSE 86; RESP 17; TEMP 98.3; O2SAT 100
[2023-08-11] MEDS: PALIPERIDONE 3 MG TAB.ER.24 PO SCH (20:16)
[2023-08-12 07:00] VITALS: RESP 16; O2SAT 100
[2023-08-12 08:00] VITALS: BP 111/67; PULSE 59; RESP 16; TEMP 97.8; O2SAT 100
[2023-08-12 19:30] VITALS: BP 105/54; PULSE 85; RESP 14; TEMP 97.2; O2SAT 99
[2023-08-12] MEDS: NYSTATIN CREAM - 30GM TUBE TP SCH (21:17)
[2023-08-13 07:00] VITALS: RESP 16; O2SAT 100
[2023-08-13 07:46] VITALS: BP 96/60; PULSE 68; RESP 16; TEMP 98.3; O2SAT 100
[2023-08-13 20:00] VITALS: BP 108/58; PULSE 80; RESP 16; TEMP 98.2; O2SAT 100
[2023-08-13] MEDS: PALIPERIDONE 3 MG TAB.ER.24 PO SCH (20:53)
[2023-08-14 07:00] VITALS: RESP 12; O2SAT 96
[2023-08-14 08:00] VITALS: BP 84/51; PULSE 68; RESP 12; TEMP 97.7; O2SAT 96
[2023-08-14] MEDS: pantoprazole 40mg Tablet.DR PO SCH (08:10)
[2023-08-14 19:30] VITALS: BP 105/65; PULSE 95; RESP 20; TEMP 98.6; O2SAT 100
[2023-08-15 07:00] VITALS: RESP 16; O2SAT 96
[2023-08-15 08:39] VITALS: BP 103/69; PULSE 72; RESP 16; TEMP 97.9; O2SAT 98
[2023-08-15] MEDS: paliperidone palmitate inj 234 MG/1.5 ML SYRINGE IM ONE (08:47)
[2023-08-15 18:28] LABS: BILIRUBIN,URINE NEGATIVE (Neg); CLARITY,URINE CLOUDY (Clear); COLOR,URINE YELLOW (Yellow); GLUCOSE, URINE NEGATIVE (Neg); KETONES,URINE NEGATIVE (Neg); LEUKOCYTE ESTERASE ,URINE SMALL (Neg); NITRITES, URINE NEGATIVE (Neg); OCCULT BLOOD,URINE NEGATIVE (Neg); PROTEIN,URINE NEGATIVE (Neg); UROBILINOGEN,URINE 0.2 E.U/dL (0.2-1.0)
[2023-08-15 18:35] LABS: SQUAMOUS EPITHELIAL CELL,UR MANY /LPF (FEW)
[2023-08-15 18:36] LABS: BACTERIA,URINE NONE SEEN /HPF (Neg); RBC,URINE 0-2 /HPF (0-2); TRANSITIONAL EPI CELLS,URINE FEW /HPF; WBC,URINE 0-4 /HPF (0-4)
[2023-08-15 18:38] LABS: UA COLLECTION TYPE CLN CATCH MIDSTREAM
[2023-08-15 19:00] VITALS: BP 114/75; PULSE 96; RESP 16; TEMP 98.4; O2SAT 97
[2023-08-15 21:46] LABS: BILIRUBIN,URINE NEGATIVE (Neg); CLARITY,URINE CLEAR (Clear); COLOR,URINE YELLOW (Yellow); GLUCOSE, URINE NEGATIVE (Neg); KETONES,URINE NEGATIVE (Neg); LEUKOCYTE ESTERASE ,URINE SMALL (Neg); NITRITES, URINE NEGATIVE (Neg); OCCULT BLOOD,URINE NEGATIVE (Neg); PROTEIN,URINE NEGATIVE (Neg); UROBILINOGEN,URINE 0.2 E.U/dL (0.2-1.0)
[2023-08-15 21:49] LABS: UA COLLECTION TYPE CLN CATCH MIDSTREAM
[2023-08-15 22:05] LABS: BACTERIA,URINE NONE SEEN /HPF (Neg); RBC,URINE 0-2 /HPF (0-2); SQUAMOUS EPITHELIAL CELL,UR FEW /LPF (FEW)
[2023-08-15 22:06] LABS: TRANSITIONAL EPI CELLS,URINE FEW /HPF
[2023-08-16 07:00] VITALS: RESP 16; O2SAT 98
[2023-08-16 08:00] VITALS: BP 109/69; PULSE 78; RESP 12; TEMP 97.9; O2SAT 98
[2023-08-16 19:00] VITALS: BP 107/65; PULSE 100; RESP 16; TEMP 98.4; O2SAT 97
[2023-08-17 07:00] VITALS: BP 102/68; PULSE 78; RESP 16; TEMP 98.5; O2SAT 97
[2023-08-17 19:00] VITALS: RESP 16; O2SAT 99
[2023-08-17 20:00] VITALS: BP 94/55; PULSE 102; RESP 16; TEMP 98.8; O2SAT 99
[2023-08-18 07:00] VITALS: BP 99/66; PULSE 71; RESP 18; TEMP 98.5; O2SAT 99
[2023-08-18 19:13] VITALS: RESP 16
[2023-08-18 19:33] VITALS: BP 110/71; PULSE 83; RESP 17; TEMP 98; O2SAT 98
[2023-08-19 07:00] VITALS: BP 106/70; PULSE 62; RESP 14; TEMP 98.1; O2SAT 99
[2023-08-19 19:11] VITALS: RESP 16
[2023-08-19 19:23] VITALS: BP 104/65; PULSE 78; RESP 16; TEMP 97.9; O2SAT 97
[2023-08-20 07:00] VITALS: BP 107/72; PULSE 70; RESP 16; TEMP 97.6; O2SAT 99
[2023-08-20 19:15] VITALS: BP 103/64; PULSE 93; RESP 16; TEMP 97.3; O2SAT 99
[2023-08-20] MEDS: acetaminophen 325mg tablet PO PRN (19:36)
[2023-08-20] MEDS ORDERED: PALI156D IM (22:16)
[2023-08-20] MEDS ORDERED: NICO-687 TD (22:16)
[2023-08-20] MEDS ORDERED: PANT40TA54 PO (22:16)
[2023-08-21 07:00] VITALS: RESP 14; O2SAT 99
[2023-08-21 08:00] VITALS: BP 105/71; PULSE 86; RESP 12; TEMP 97.7; O2SAT 99
[2023-08-21] MEDS: paliperidone palmitate 156 mg/ml inj.**IM only IM ONE (08:31)
[2023-08-21] MEDS: OLANZapine 5mg rapidly disint. tablet PO ONE (18:45)
[2023-08-21 19:59] VITALS: BP 106/57; PULSE 86; RESP 16; TEMP 98.4; O2SAT 100
[2023-08-21] MEDS: hydrocortisone 1% cream 28gm TP SCH (20:00)
[2023-08-22 07:19] VITALS: BP 103/72; PULSE 60; RESP 16; TEMP 98.4; O2SAT 97
[2023-08-22] MEDS: OLANZAPINE 5 MG TABLET PO PRN (18:39)
[2023-08-22 20:00] VITALS: BP 110/72; PULSE 62; RESP 15; TEMP 98.1; O2SAT 97
[2023-08-23 07:30] VITALS: BP 104/73; PULSE 61; RESP 16; TEMP 97.2; O2SAT 98
[2023-08-23] MEDS ORDERED: OLAN5TAB75 PO (14:30)
== END 2023-08-23 16:10 | disposition home or self-care (01) | DRG 885 ==
LOC: ER 13:38 → ED HOLD 08-07 11:51 → ADULT MH 08-07 14:32
PROVIDERS: ADMIT Psychiatry & Neurology Psychiatry; ATTEND Psychiatry & Neurology Psychiatry
PROC: GZ51ZZZ Individual Psychotherapy, Behavioral (ICD-10-PCS; principal; 2023-08-10)
PROC: GZHZZZZ Group Psychotherapy (ICD-10-PCS; 2023-08-10)
DX: F25.9 Schizoaffective disorder, unspecified (principal); N39.0 Urinary tract infection, site not specified; R45.851 Suicidal ideations; Z59.00 Homelessness unspecified; F31.9 Bipolar disorder, unspecified; K21.9 Gastro-esophageal reflux disease without esophagitis; E88.810 Metabolic syndrome; F12.20 Cannabis dependence, uncomplicated; F15.10 Other stimulant abuse, uncomplicated; Z20.822 Contact with and (suspected) exposure to COVID-19; D64.9 Anemia, unspecified; F11.10 Opioid abuse, uncomplicated; F41.9 Anxiety disorder, unspecified; Z83.3 Family history of diabetes mellitus; Z81.8 Family history of other mental and behavioral disorders; Z98.84 Bariatric surgery status; Z90.49 Acquired absence of other specified parts of digestive tract; Z91.030 Bee allergy status; Z98.51 Tubal ligation status; Z62.810 Personal history of physical and sexual abuse in childhood; Z62.811 Personal history of psychological abuse in childhood
CPT/HCPCS: 36415; 80053; 80061; 80305; 80320; 80329; 81001; 81025; 83036; 83690; 85008; 85025; 87081; 87088; 87811; 96372; 99291; A6212; A6213; A6223; A6250; A6258; A6402; C1758; J0696; J1200; J1630; J2060; J2426; J3486

== ENCOUNTER 2023-08-28 12:28 | Emergency (ER) | payer MEDICARE, MEDICAID ==
[~2023-08-28] VITALS: Ht 170.2 cm; Wt 68.1 kg
[~2023-08-28 12:28] MED LIST changes: -CEPH-585 PO; -IRON150C5 PO; +NICO-687 TD; +PALI156D IM; +PANT40TA54 PO
[2023-08-28 13:29] LABS: EOSINOPHILS # (AUTO) 0.1 X10'3 (0-0.9); EOSINOPHILS % (AUTO) 1.3 % (0-6); HEMATOCRIT 28.3 % (35.0-45.0); HEMOGLOBIN 8.5 g/dl (12.0-16.0); LYMPHOCYTES # (AUTO) 1.4 X10'3 (1.1-4.8); MEAN CORPUSCULAR HEMOGLOBIN 20.2 PG (27.0-31.0); MEAN CORPUSCULAR HGB CONC 29.9 g/dL (33.0-36.5); MEAN CORPUSCULAR VOLUME 67.5 FL (78-98); MEAN PLATELET VOLUME 7.3 FL (7.4-10.4); MONOCYTES # (AUTO) 0.3 X10'3 (0-0.9); NEUTROPHILS # (AUTO) 2.5 X10'3 (1.8-7.7); NEUTROPHILS % (AUTO) 57.7 % (42-75); PLATELET COUNT 310 X10'3 (140-440); RED CELL DISTRIBUTION WIDTH 19.4 % (11.5-14.5); WHITE BLOOD COUNT 4.3 X10'3 (4.5-11.0)
[2023-08-28 13:40] LABS: URINE HCG NEGATIVE (NEG)
[2023-08-28 13:40] LABS: ALBUMIN 3.3 G/DL (3.4-5.0); ANION GAP 10 (8-16); BLOOD UREA NITROGEN 11 MG/DL (7-18); BUN/CREATININE RATIO 17.7 (10.0-20.0); CALCIUM 8.4 MG/DL (8.5-10.1); CHLORIDE 105 MMOL/L (99-107); CREATININE 0.62 MG/DL (0.40-0.90); GLUCOSE 121 MG/DL (70-104); POTASSIUM 3.5 MMOL/L (3.5-5.1); SODIUM 140 MMOL/L (135-145); TOTAL CARBON DIOXIDE 24.8 MMOL/L (24-32); eCRCL 114 ML/MIN; eGFR > 90 ML/MIN
[2023-08-28 13:42] LABS: ETHANOL < 10 MG/DL (<10)
[2023-08-28 13:48] LABS: BILIRUBIN,URINE NEGATIVE (Neg); CLARITY,URINE CLEAR (Clear); COLOR,URINE YELLOW (Yellow); GLUCOSE, URINE NEGATIVE (Neg); KETONES,URINE NEGATIVE (Neg); LEUKOCYTE ESTERASE ,URINE NEGATIVE (Neg); NITRITES, URINE NEGATIVE (Neg); OCCULT BLOOD,URINE NEGATIVE (Neg); PROTEIN,URINE NEGATIVE (Neg); UROBILINOGEN,URINE 0.2 E.U/dL (0.2-1.0)
[2023-08-28 13:56] LABS: UA COLLECTION TYPE CLN CATCH MIDSTREAM; URINE AMPHETAMINE SCREEN POSITIVE (Neg); URINE BARBITUATE SCREEN NEGATIVE (Neg); URINE BENZODIAZEPINES SCREEN NEGATIVE (Neg); URINE CANNABINOID SCREEN NEGATIVE (Neg); URINE COCAINE SCREEN NEGATIVE (Neg); URINE METHADONE SCREEN NEGATIVE (Neg); URINE OPIATE SCREEN NEGATIVE (Neg); URINE PHENCYCLIDINE SCREEN NEGATIVE (Neg)
[2023-08-28 13:59] LABS: POLYCHROMASIA FEW
[2023-08-28 14:00] LABS: ANISOCYTOSIS 2+; HYPOCHROMASIA 1+; MICROCYTOSIS 2+
[2023-08-28 15:21] LABS: PLATELET ESTIMATE NORMAL
[2023-08-28] MEDS ORDERED: PANT40TA54 PO (21:05)
[2023-08-28] MEDS ORDERED: NICO-687 TOP (21:05)
[2023-08-28] MEDS ORDERED: OLAN-1 PO (21:05)
[2023-08-28] MEDS ORDERED: PALI156D IM (21:05)
[2023-08-28] MEDS ORDERED: IRON150C13 PO (21:05)
[2023-08-28] MEDS ORDERED: nicotine 21mg patch - 24 hr TD SCH (21:55)
[2023-08-28] MEDS ORDERED: OLANZapine 5mg rapidly disint. tablet PO SCH (21:59)
[2023-08-29 05:24] VITALS: BP 118/80; PULSE 99; TEMP 96.3; O2SAT 97
[2023-08-29 08:00] VITALS: RESP 16
[2023-08-29] MEDS: pantoprazole 40mg Tablet.DR PO SCH (08:28)
[2023-08-29] MEDS: nicotine 21mg patch - 24 hr TD SCH (08:28)
[2023-08-29] MEDS: OLANZapine 5mg rapidly disint. tablet PO PRN (08:28)
[2023-08-29] MEDS: iron polysaccharide complex 150mg capsule PO SCH (08:28)
[2023-09-20] MEDS ORDERED: paliperidone palmitate 156 mg/ml inj.**IM only IM SCH (08:00)
== END 2023-08-29 15:33 | disposition home or self-care (01) ==
LOC: ER 12:29
DX: F29 Unspecified psychosis not due to a substance or known physiological condition (principal); Z20.822 Contact with and (suspected) exposure to COVID-19; F15.10 Other stimulant abuse, uncomplicated
CPT/HCPCS: 36415; 80048; 80305; 80320; 81003; 81025; 85008; 85025; 87811; 99284; 99285